=== PATIENT | male | born 1985 | race Caucasian/White ===

== ENCOUNTER → 2019-12-08 08:51 | Outpatient (BNVA) | payer MEDICARE, MEDICAID, SELFPAY | PROVIDERS: Visit Provider Specialist | DX: G82.20 Paraplegia, unspecified (principal); G40.109 Localization-related (focal) (partial) symptomatic epilepsy and epileptic syndromes with simple partial seizures, not intractable, without status epilepticus; N31.9 Neuromuscular dysfunction of bladder, unspecified; K59.09 Other constipation | CPT/HCPCS: 62370; 99213 ==

== ENCOUNTER → 2020-03-08 09:59 | Outpatient (BNVA) | payer MEDICARE, MEDICAID, SELFPAY | PROVIDERS: Visit Provider Specialist | DX: G82.20 Paraplegia, unspecified (principal); R29.90 Unspecified symptoms and signs involving the nervous system; K59.09 Other constipation; N31.9 Neuromuscular dysfunction of bladder, unspecified | CPT/HCPCS: 62370; 99213 ==

== ENCOUNTER 2020-03-08 11:53 | Outpatient (CLI) | payer MEDICARE, MEDICAID, SELFPAY ==
[2020-03-08 12:54] LABS: Basophils % 0.3 %; Eosinophils # 0.2 10^3/uL (0.0-0.8); Eosinophils % 2.1 %; Hematocrit 25.4 % (42.0-52.0); Lymphocytes # 1.2 10^3/uL (0.8-4.8); Lymphocytes % 11.5 %; Mean Corpuscular Hemoglobin 16.2 pg (28.0-34.0); Mean Corpuscular Volume 67.6 fL (80-94); Monocytes # 0.7 10^3/uL (0.2-0.9); Monocytes % 7.3 %; Neutrophils # 7.8 10^3/uL (1.8-7.7); Neutrophils % 78.5 %; Nucleated Red Blood Cells % 0 %; Platelet Count 508 10^3/cmm (130-400); Red Blood Count 3.76 10^6/uL (4.1-5.3); Red Cell Distribution Width 18.7 % (12.1-15.1)
[2020-03-08 13:00] LABS: Alanine Aminotransferase 11 U/L (0-41); Albumin Level 3.4 g/dL (3.5-5.2); Alkaline Phosphatase 53 IU/L (40-130); Anion Gap 16.1 (5-19); Aspartate Amino Transferase 14 U/L (0-40); Blood Urea Nitrogen 9 mg/dL (6-20); Calcium 9.1 mg/dL (8.5-10.5); Carbon Dioxide 24 mmol/L (22-29); Chloride 99 mmol/L (98-107); Ferritin 6 ng/mL (30-400); Globulin 3.6 g/dL (1.3-4.6); Glomerular Filtration Rate 190.3 mL/min (90-130); Glucose 91 mg/dL (65-115); Osmolality Calculated 276 mOsm/kg (285-295); Potassium 4.1 mmol/L (3.5-5.1); Sodium 135 mmol/L (136-145); Total Bilirubin 0.2 mg/dL (0.15-1.2)
[2020-03-08 13:49] LABS: Hemoglobin 6.1 g/dL (11.7-16.6)
[2020-03-09 08:26] LABS: Testosterone Total 493.3 ng/dL (249-836)
== END 2020-03-08 11:54 | disposition home or self-care (01) ==
LOC: LAB 12:01
PROVIDERS: Visit Provider Specialist
DX: G82.20 Paraplegia, unspecified (principal)
CPT/HCPCS: 80053; 82728; 84403; 85025

== ENCOUNTER 2020-03-08 15:18 | Observation (INO) | payer MEDICARE, MEDICAID, SELFPAY ==
[2020-03-08] VITALS (12 sets, daily range): BP systolic 85–148; BP diastolic 47–77; PULSE 53–89; RESP 16–18; TEMP 36.5–37.2; O2SAT 95–100; BMI 25.1
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
--- NOTE | 2020-03-08 17:34 | CTR_ITS ---
PROCEDURE INFORMATION: Exam: CT Abdomen And Pelvis With Contrast Exam date and time: 03/08/2020 5:45 PM Age: 34 years old Clinical indication: Abdominal pain; Localized; Lower; Prior surgery; Surgery type: Pain pump; Additional info: Abd pain TECHNIQUE: Imaging protocol: Computed tomography of the abdomen and pelvis with intravenous contrast. Radiation optimization: All CT scans at this facility use at least one of these dose optimization techniques: automated exposure control; mA and/or kV adjustment per patient size (includes targeted exams where dose is matched to clinical indication); or iterative reconstruction. Contrast material: OMNI 300; Contrast volume: 95 ml; Contrast route: IV; COMPARISON: CT pelvis w con* [id number] 10/04/2018 12:58 PM RADIATION DOSE METRICS: Total DLP: 695.35 mGy-cm FINDINGS: Tubes, catheters and devices: Stable right-sided pain management/neurostimulator device in place. Liver: Low density focal fatty infiltration within the liver, anterior to the falciform ligament. This is a common finding. Gallbladder and bile ducts: Solitary 1.9 cm gallstone within the gallbladder. Contracted gallbladder. Pancreas: Normal. No ductal dilation. Spleen: Normal. No splenomegaly. Adrenals: Normal. No mass. Kidneys and ureters: Normal. No hydronephrosis. Stomach and bowel: Unremarkable. No obstruction. No mucosal thickening. Appendix: No evidence of appendicitis. Intraperitoneal space: Increased size of 10.1 x 10.0 x 5.8 cm low-density fluid collection in the space between the right acetabulum and proximal right femur consistent with increased infected versus noninfected fluid within the pseudoarthrosis. Vasculature: Stable IVC filter. Lymph nodes: Unremarkable. No enlarged lymph nodes. Bladder: Matthews balloon catheter in the urinary bladder. Reproductive: Unremarkable as visualized. Bones/joints: Previous removal of the femoral head and neck bilaterally with free-floating proximal femurs overriding the acetabular areas laterally. Partial sacralization of the right portion of L5 with unilateral right-sided articulation which can be a source of chronic low back pain. Stable sclerotic deformity of the left ischial tuberosity with interval appearance of soft tissue track suggesting possible phlegmon with or without osteomyelitis. Soft tissues: Increased soft tissue thickening along the inferior portion of the gluteal crease bilaterally extending to the perianal area most consistent with phlegmon/decubitus ulcer. CT/CT abdomen pelvis w con* [id number] IMPRESSION: 1. Stable right-sided pain management/neurostimulator device in place. 2. Solitary 1.9 cm gallstone within the gallbladder. 3. Matthews balloon catheter in the urinary bladder. 4. Previous removal of the femoral head and neck bilaterally with free-floating proximal femurs overriding the acetabular areas laterally. 5. Increased soft tissue thickening along the inferior portion of the gluteal crease bilaterally extending to the perianal area most consistent with phlegmon/decubitus ulcer. 6. Stable sclerotic deformity of the left ischial tuberosity with interval appearance of soft tissue track suggesting possible phlegmon with or without osteomyelitis. 7. Increased size of 10.1 x 10.0 x 5.8 cm low-density fluid collection in the space between the right acetabulum and proximal right femur consistent with increased infected versus noninfected fluid within the pseudoarthrosis. Radiation Dose CTDIVOL = (mGy): DLP = 695.35 (mGy-cm)
[2020-03-08 17:40] LABS: Basophils % 0.3 %; Eosinophils # 0.3 10^3/uL (0.0-0.8); Eosinophils % 3.2 %; Hematocrit 24.6 % (42.0-52.0); Lymphocytes # 1.2 10^3/uL (0.8-4.8); Lymphocytes % 13.8 %; Mean Corpuscular HGB Conc 24.8 g/dL (30.0-36.0); Mean Corpuscular Hemoglobin 15.9 pg (28.0-34.0); Mean Corpuscular Volume 64.2 fL (80-94); Mean Platelet Volume 10.4 fL (7.4-10.4); Monocytes # 0.8 10^3/uL (0.2-0.9); Monocytes % 8.5 %; Neutrophils # 6.5 10^3/uL (1.8-7.7); Neutrophils % 73.9 %; Nucleated Red Blood Cells % 0 %; Platelet Count 524 10^3/cmm (130-400); Red Blood Count 3.83 10^6/uL (4.1-5.3); Red Cell Distribution Width 18.9 % (12.1-15.1); White Blood Count 8.8 10^3/uL (4.0-10.0)
[2020-03-08 17:49] LABS: Partial Thromboplastin Time 33.4 SECONDS (23.9-36.7)
[2020-03-08 17:52] LABS: Hemoglobin 6.1 g/dL (11.7-16.6)
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
[2020-03-08] MEDS: iohexol 300 mg/mL 100 mL Btl IV (17:58)
[2020-03-08 17:59] LABS: Alanine Aminotransferase 12 U/L (0-41); Albumin Level 3.5 g/dL (3.5-5.2); Alkaline Phosphatase 62 IU/L (40-130); Anion Gap 15.8 (5-19); Aspartate Amino Transferase 15 U/L (0-40); Blood Urea Nitrogen 14 mg/dL (6-20); Calcium 9.2 mg/dL (8.5-10.5); Carbon Dioxide 26 mmol/L (22-29); Chloride 99 mmol/L (98-107); Globulin 3.6 g/dL (1.3-4.6); Glomerular Filtration Rate 110.7 mL/min (90-130); Glucose 106 mg/dL (65-115); Osmolality Calculated 281 mOsm/kg (285-295); Potassium 3.8 mmol/L (3.5-5.1); Sodium 137 mmol/L (136-145); Total Bilirubin 0.2 mg/dL (0.15-1.2); Total Protein 7.1 g/dL (6.6-8.7)
--- NOTE | 2020-03-08 18:58 | PC.NURSE ---
Patients initial temperature before giving blood was 98.6.
[2020-03-08 19:09] LABS: Bilirubin Urine Neg (NEGATIVE); Blood Urine 3+ (Negative); Glucose Urine UA Norm (Normal); Ketones Urine Negative (Negative); Nitrate Urine Negative (Negative); Protein Urine 1+ (Negative); Sulfosalicylic Acid Urine Negative (Negative); Urine Appearance Clear (CLEAR); Urine Color Yellow (Yellow); pH Urine 8 (5-7)
[2020-03-08 19:10] LABS: Add Urine Culture? No; Add Urine Microscopic? YES; Bacteria Urine TRACE; Leukocyte Esterase Urine Negative (Negative); Squamous Epithelial Cell Urine 0-4 (0-5); Urobilinogen Urine Norm (Negative); WBC Urine 0-4 /hpf (0-5)
[2020-03-08] MEDS: sennosides-docusate Tablet 3 TAB PO (20:58)
[2020-03-08] MEDS: levETIRAcetam 500 mg Tablet 1500 MG PO (20:59)
[2020-03-08] MEDS: oxybutynin 5 mg Tablet PO (20:59)
[2020-03-09] VITALS (8 sets, daily range): BP systolic 91–119; BP diastolic 53–69; PULSE 62–78; RESP 15–18; TEMP 36.7–36.9; O2SAT 97–99
[2020-03-09 05:16] LABS: Ferritin 6 ng/mL (30-400); Folate Level 9.1 ng/mL (4.5-32.2); Iron 9 ug/dL (59-158); Percent Saturation 3.4 % (20-50); Thyroid Stimulating Hormone 1.48 uIU/mL (0.27-4.20); Total Iron Binding Capacity 260 mcg/dl; Unsaturated Iron Binding 251 ug/dL (112-347); Vitamin B12 410 pg/mL (232-1245)
[2020-03-09 05:40] LABS: Basophils % 0.3 %; Eosinophils # 0.4 10^3/uL (0.0-0.8); Eosinophils % 5.7 %; Hematocrit 30.5 % (42.0-52.0); Hemoglobin 8.3 g/dL (11.7-16.6); Lymphocytes % 14.9 %; Mean Corpuscular HGB Conc 27.2 g/dL (30.0-36.0); Mean Corpuscular Hemoglobin 18.4 pg (28.0-34.0); Mean Corpuscular Volume 67.6 fL (80-94); Mean Platelet Volume 10.9 fL (7.4-10.4); Monocytes # 0.7 10^3/uL (0.2-0.9); Monocytes % 11.5 %; Neutrophils # 4.3 10^3/uL (1.8-7.7); Neutrophils % 67.3 %; Nucleated Red Blood Cells % 0 %; Platelet Count 327 10^3/cmm (130-400); Positive M 1; Red Blood Count 4.51 10^6/uL (4.1-5.3); Red Cell Distribution Width 23.3 % (12.1-15.1); White Blood Count 6.4 10^3/uL (4.0-10.0)
[2020-03-09 06:00] LABS: Anion Gap 16.4 (5-19); Blood Urea Nitrogen 13 mg/dL (6-20); Carbon Dioxide 24 mmol/L (22-29); Chloride 105 mmol/L (98-107); Glomerular Filtration Rate 246.2 mL/min (90-130); Glucose 87 mg/dL (65-115); Osmolality Calculated 288 mOsm/kg (285-295); Potassium 4.4 mmol/L (3.5-5.1); Sodium 141 mmol/L (136-145)
[2020-03-09] MEDS: levETIRAcetam 500 mg Tablet 1500 MG PO (09:30)
[2020-03-09] MEDS: oxybutynin 5 mg Tablet PO ×2 (09:31→13:35)
[2020-03-09] MEDS: pantoprazole DR 40 mg Tablet PO (09:31)
[2020-03-09] MEDS: polyethylene glycol 3350 Pkt 17 gm PO (10:28)
--- NOTE | 2020-03-09 10:54 | PC.CHAP ---
Pastoral Care Encounter/Spiritual Assessment Type of Contact [] Declined hogshead hooper visit [] Patient/Family/Request visit [] Outpatient visit [] Follow-up visit [] Physician referral [] Code/Alert [x] Routine visit [] Staff referral [] Actively dying [] Patient sleeping [] Family support [] [] Out of room [] Palliative care [] [] Receiving care in room [] Pre-surgical visit [] Trauma [] Long length of stay [] ICU visit [] Other: Relational/Emotional Strength [] Patient feels connected with others/family/visitors/staff [] Distress [] Loneliness/isolation [] Abandonment Spirituality of Patient [x] Person of Татьяна [] Attends Mandaeism of their Татьяна [x] Believes in Prayer [x] Reads Bible or Nondenominational materials [] There are Spiritual issues to be addressed Implementation Technician Interventions [x] Prayer [] Active listening [] Non-anxious presence [] Spiritual/emotional support [] Crisis/trauma care [] Spiritual counseling [] Bereavement support [] Provided bereavement packet [] Provided Bible/devotional materials [] Provided toy/stuffed animal, coloring book to patient or family member [] Provided Communion [] Anointing/[place] [] Salvation [x] Completed spiritual assessment [] Other: Impact on Illness or Injury [] Angry [] Fearful [] Anxious [] Often cries [] Exhaustion [] Unable to work [] Unable to attend jain [] Unable to walk/stand [] Unable to read [] Unable to drive [] Unable to eat/drink [] Unable to sleep [] Unable to be with family [] Patient intubated [] Other: Summary Patient received blood, feeling stronger Time spent with patient 20 min
--- NOTE | 2020-03-09 12:15 | PM.DCS ---
Discharge Providers Date of Admission: 03/08/20 17:55 Date of Discharge: March 09, 2020 Attending Provider at Admission: Ludin Mckoy MD Attending Provider at Discharge: Ludin Mckoy MD Diagnoses at Discharge Discharge Diagnosis (1) Anemia: Status: Acute Problem details: Improved following transfusion. Hemoglobin now 8.3. No bowel movements in house to suggest any brisk bleeding. Studies indicate iron deficiency anemia (2) Abdominal pain: Status: Acute Problem details: Improved. No etiology found for this on CT. May be secondary to constipation. 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 He was found to have a hemoglobin of 6.1. He reported bright red blood with rectal manipulation that he uses twice daily for bowel movements. Previous EGD and colonoscopy 1 year ago were negative. Studies indicated iron deficiency anemia. B12 and folate levels were normal. He was transfused 2 units and hemoglobin increased to 8.3. He had no evidence of active bleeding so he was discharged home with follow-up with surgery who performed his previous endoscopy. He will be placed on iron. Bowel regimen was changed. It was also suggested he reduce manipulation and try suppository 1-2 times daily which he has at home. Secondary to some abdominal pain a CT abdomen and pelvis was also performed and this demonstrated no obvious reason for abdominal discomfort. Significant stool was noted when I evaluated the CAT scan myself. Of note, he does have some scarring and distortion of his rectum but no evidence of infection on external rectal exam done by me. Some fissuring is also noted. Physical Exam Narrative: EXAM NARRATIVE: General exam is no apparent distress Cardiovascular regular rate and rhythm without murmur Lungs clear Abdomen is soft, positive bowel sounds Extremities no cyanosis clubbing. Edema unchanged from admission. Urinary Catheter Management^: Matthews: Cath Placed During This Visit: yes Reason for Continuing Indwelling Catheter: Chronic Indwelling Urinary Catheter on Admission Urinary Catheter Date of Insertion: 03/08/20 Urinary Catheter Time of Insertion: 20:00 Discharge Data Data Completed and Pending: Completed Studies During Hospitalization Category Date Time Status CT abdomen pelvis w con* [id number] Stat Cat Scan 03/08/20 17:34 Completed Pending at discharge Category Date Time Status Immunochemical Fe lori OCB Stat Lab 03/08/20 15:48 Uncollected Labs from last 24 hours 03/09/20 03/09/20 03/08/20 05:10 05:10 18:20 WBC 6.4 RBC 4.51 Hgb 8.3 L D Hct 30.5 L MCV 67.6 L D MCH 18.4 L D MCHC 27.2 L D RDW 23.3 H Plt Count 327 MPV 10.9 H Neut % (Auto) 67.3 Lymph % (Auto) 14.9 [place] % (Auto) 11.5 Eos % (Auto) 5.7 Baso % (Auto) 0.3 Neut # (Auto) 4.3 Lymph # (Auto) 1.0 [place] # (Auto) 0.7 Eos # (Auto) 0.4 Baso # (Auto) 0.0 Nucleated RBC % (a uto) 0 Nucleated RBCs # 0.0 PT INR APTT Sodium 141 Potassium 4.4 Chloride 105 Carbon Dioxide 24 Anion Gap 16.4 BUN 13 Creatinine 0.4 L GFR Calculation 246.2 H Glucose 87 Calculated Osmolal ity 288 Calcium 9.0 Iron TIBC % Saturation Unsat Iron Binding Ferritin Total Bilirubin AST ALT Alkaline Phosphata se Total Protein Albumin Globulin Vitamin B12 Folate TSH Urine Color Yellow Urine Appearance Clear Urine pH 8 H Ur Specific Gravit y 1.010 Urine Protein 1+ H Urine Glucose (UA) Norm Urine Ketones Negative Urine Blood 3+ H Urine Nitrate Negative Urine Bilirubin Neg Prot Sulfosalicyli c Acd Negative Urine Urobilinogen Norm Ur Leukocyte Claudine ase Negative Urine RBC 10-15 H Urine WBC 0-4 H Ur Squamous Epith Cells 0-4 H Urine Bacteria Trace Blood Type Rho(D) Type Antibody Screen Crossmatch 03/08/20 03/08/20 03/08/20 17:17 17:17 17:17 WBC RBC Hgb Hct MCV MCH MCHC RDW Plt Count MPV Neut % (Auto) Lymph % (Auto) [place] % (Auto) Eos % (Auto) Baso % (Auto) Neut # (Auto) Lymph # (Auto) [place] # (Auto) Eos # (Auto) Baso # (Auto) Nucleated RBC % (a uto) Nucleated RBCs # PT INR APTT Sodium Potassium Chloride Carbon Dioxide Anion Gap BUN Creatinine GFR Calculation Glucose Calculated Osmolal ity Calcium Iron 9 L TIBC 260 % Saturation 3.4 L Unsat Iron Binding 251 Ferritin 6 L Total Bilirubin AST ALT Alkaline Phosphata se Total Protein Albumin Globulin Vitamin B12 410 Folate 9.1 TSH 1.48 Urine Color Urine Appearance Urine pH Ur Specific Gravit y Urine Protein Urine Glucose (UA) Urine Ketones Urine Blood Urine Nitrate Urine Bilirubin Prot Sulfosalicyli c Acd Urine Urobilinogen Ur Leukocyte Claudine ase Urine RBC Urine WBC Ur Squamous Epith Cells Urine Bacteria Blood Type AB Positive Rho(D) Type Positive Antibody Screen Negative Crossmatch See Detail 03/08/20 03/08/20 03/08/20 17:17 17:17 17:17 WBC 8.8 RBC 3.83 L Hgb 6.1 L* Hct 24.6 L MCV 64.2 L D MCH 15.9 L MCHC 24.8 L RDW 18.9 H Plt Count 524 H MPV 10.4 Neut % (Auto) 73.9 Lymph % (Auto) 13.8 [place] % (Auto) 8.5 Eos % (Auto) 3.2 Baso % (Auto) 0.3 Neut # (Auto) 6.5 Lymph # (Auto) 1.2 [place] # (Auto) 0.8 Eos # (Auto) 0.3 Baso # (Auto) 0.0 Nucleated RBC % (a uto) 0 Nucleated RBCs # 0.0 PT 14.50 H INR 1.10 APTT 33.4 Sodium 137 Potassium 3.8 Chloride 99 Carbon Dioxide 26 Anion Gap 15.8 BUN 14 Creatinine 0.8 GFR Calculation 110.7 Glucose 106 Calculated Osmolal ity 281 L Calcium 9.2 Iron TIBC % Saturation Unsat Iron Binding Ferritin Total Bilirubin 0.2 AST 15 ALT 12 Alkaline Phosphata se 62 Total Protein 7.1 Albumin 3.5 Globulin 3.6 Vitamin B12 Folate TSH Urine Color Urine Appearance Urine pH Ur Specific Gravit y Urine Protein Urine Glucose (UA) Urine Ketones Urine Blood Urine Nitrate Urine Bilirubin Prot Sulfosalicyli c Acd Urine Urobilinogen Ur Leukocyte Claudine ase Urine RBC Urine WBC Ur Squamous Epith Cells Urine Bacteria Blood Type Rho(D) Type Antibody Screen Crossmatch Vitals: Last Vital Signs Temp 98.4 F 03/09/20 11:53 Pulse 78 03/09/20 11:53 Resp 18 03/09/20 11:53 BP 91/53 03/09/20 11:53 Pulse Ox 98 03/09/20 11:53 Discharge Plan Discharge Patient Disposition: Home, Self-Care Condition: Stable Prescriptions: New sennosides-docusate sodium 8.6-50 mg Tablet 3 tab PO BEDTIME Qty: 90 RF: 0 ferrous sulfate 325 mg (65 mg iron) tablet,delayed release (DR/EC) 325 mg PO BID Qty: 60 RF: 0 pantoprazole [Protonix] 40 mg tablet,delayed release (DR/EC) 40 mg PO DAILY Qty: 30 RF: 0 Continued baclofen 2,000 mcg/mL solution 699.4 mcg INTRATHECA QDAY RF: 0 Fiber Select Gummies 2-100 gram-mcg tablet,chewable 1 tab PO DAILY RF: 0 levetiracetam [Keppra] 750 mg tablet 1,500 mg PO BID RF: 0 oxybutynin chloride 5 mg tablet 5 mg PO QID RF: 0 (DME) urinary bag Kit See Rx Instructions .ROUTE .MEDSUPPLY Qty: 1 RF: 0 Changed ClearLax 17 gram Powder In Packet 17 g PO BIDPC Qty: 0 RF: 0 Discontinued senna 8.6 mg capsule 17.2 mg PO BID PRN (Reason: constipation) Qty: 120 RF: 11 Colace 100 mg capsule 300 mg PO DAILY RF: 0 Referrals: Zander Yang MD [Physician] - 7-10 days (Follow-up anemia, history of rectal bleeding with manipulation) Discharge Diet: Regular Discharge Activity: Increase activity as tolerated Activity Restrictions/Additional Instructions: Arrange follow-up with a primary care provider on Thursday or Thursday with a CBC Discharge Attestations Time Spent in Discharge Care*: greater than 30 min Quality Metrics Clinical Quality Measures During this hospital stay, did patient experience: None Coding Level of Care Code Acute 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
== END 2020-03-09 13:00 | disposition home or self-care (01) ==
LOC: ER 15:48 → MEDSURG 18:36
PROVIDERS: Admitting Provider Internal Medicine; Emergency Provider Family Medicine; Visit Provider Internal Medicine
DX: D64.9 Anemia, unspecified (principal); R10.9 Unspecified abdominal pain; G82.20 Paraplegia, unspecified; K59.09 Other constipation; R29.90 Unspecified symptoms and signs involving the nervous system; N31.9 Neuromuscular dysfunction of bladder, unspecified
CPT/HCPCS: 12345; 36415; 36430; 51702; 62370; 74177; 80048; 80053; 81001; 82607; 82728; 82746; 83540; 83550; 84403; 84443; 85025; 85610; 85730; 86850; 86900; 86920; 99213; 99282; 99283; G0378; P9016; Q9967

== ENCOUNTER → 2020-03-13 15:19 | Outpatient (BNVA) | payer MEDICARE, MEDICAID, SELFPAY | PROVIDERS: Visit Provider Nurse Practitioner Family | DX: D64.9 Anemia, unspecified (principal); D50.9 Iron deficiency anemia, unspecified; K59.09 Other constipation | CPT/HCPCS: 85025 ==

== ENCOUNTER 2020-03-26 14:15 | Inpatient (IN) | payer MEDICARE, MEDICAID, SELFPAY ==
[2020-03-26 14:36] VITALS: BP 102/42; PULSE 86; RESP 18; TEMP 37.2; O2SAT 97; BMI 23.7
--- NOTE | 2020-03-26 15:39 | CTR_ITS ---
PROCEDURE INFORMATION: Exam: CT Abdomen And Pelvis With Contrast Exam date and time: 03/26/2020 4:00 PM Age: 34 years old Clinical indication: Abdominal pain; Prior surgery; Additional info: Fever, sacral decub with tunneling TECHNIQUE: Imaging protocol: Computed tomography of the abdomen and pelvis with intravenous contrast. Radiation optimization: All CT scans at this facility use at least one of these dose optimization techniques: automated exposure control; mA and/or kV adjustment per patient size (includes targeted exams where dose is matched to clinical indication); or iterative reconstruction. Contrast material: OMNI 300; Contrast volume: 95 ml; Contrast route: IV; COMPARISON: CT abdomen pelvis w con* [id number] 03/08/2020 5:56 PM RADIATION DOSE METRICS: Total DLP: 824.38 mGy-cm FINDINGS: Tubes, catheters and devices: Neurostimulator device is present. Heart: Unchanged trace pericardial fluid. Lungs: There is mild basilar ground-glass opacity compatible with mild dependent atelectasis or pneumonitis. Pleural space: No pleural effusion. Liver: Unremarkable.No mass. Gallbladder and bile ducts: There is cholelithiasis. No evidence of cholecystitis. There is no common bile duct dilation. Pancreas: Normal. No ductal dilation. Spleen: The spleen is normal. Adrenals: Normal. No mass. Kidneys and ureters: There is no evidence of hydronephrosis. Stomach and bowel: There is no evidence of intestinal perforation or obstruction. No bowel thickening or inflammatory changes. The phlegmon posterior to the distal sacrum and coccyx is dissecting inferiorly ending just posterior to the anus. On sagittal images, there may be a tiny fissure that also extends to the skin surface 10 cm distal to the collection overlying the distal sacrum and coccyx best seen on series 601, image 44. There are also a few punctate air bubbles and tiny fluid collections compatible with infection measuring up to 5 mm in size image 87. The small collections in air bubbles are located approximately 3 cm posterior to the anus. No drainable fluid collection or perirectal abscess. Appendix: A normal appendix is identified. Intraperitoneal space: No free fluid in the abdomen or pelvis. Vasculature: An inferior vena cava filter lies in appropriate position. Lymph nodes: Multiple subcentimeter and prominent retroperitoneal lymph nodes are unchanged. There is 1 lymph node in the left periaortic space that measures 1 point 5 cm in short axis image 34 unchanged since the prior exam. Bilateral inguinal adenopathy is unchanged. Bladder: There is nonspecific bladder wall thickening. This may be related to incomplete distention. Unchanged bladder wall thickening. Previous catheter has been removed. Reproductive: Unremarkable as visualized. Bones/joints: Chronic dislocation of the left hip is noted. Unchanged soft tissue thickening with a small amount of fluid in the left hip joint. Large multiloculated fluid collection right hip joint and adjacent to the dislocated proximal right femur is noted and unchanged in size and configuration. There is no gas within the fluid collection but the wall appears thick. The femur within the fluid is abnormal concerning for chronic osteomyelitis. This thick-walled fluid collection is concerning for infected hip joint/smoldering infection with underlying chronic dislocation. There is a right-sided transitional lumbosacral junction. There are moderate degenerative changes in the spine. Old bone graft donor site in the left ilium is noted. There are moderate degenerative changes in the sacroiliac joints. Old fracture or postoperative changes in the left iliac wing are noted. Chronic debris in the left hip joint and deformity of the left acetabulum with chronic dislocation is unchanged. Unchanged deformity of the left ischium. Unchanged ankylosis of the pubic symphysis. Unchanged moderate degenerative changes right acetabulum. 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 There is a tract in the proximal right femur compatible probable old intramedullary lexi has been removed but the proximal aspect of this tract is abnormal with a moth eaten appearance of the bone including sclerosis of the proximal 11 cm of the right femur is concerning for chronic osteomyelitis. Note is made that the fluid collection is surrounding this portion of the femur which would be concerning for infected fluid. Soft tissues: There is a decubitus ulcer in the midline overlying the distal sacrum/coccyx. There is abundant soft tissue thickening and induration of the fat dorsal to the distal sacrum and coccyx compatible with cellulitis/phlegmon. There is gas in the soft tissues within a fissure that extends immediately contiguous with the dorsal cortex of the sacrum best seen on image 66 through 70. No fluid collection within the soft tissues in the midline dorsal to the sacrum or coccyx. Note is made that the phlegmon continues inferiorly and in the posterior to the anus. There is probable scarring of the subcutaneous fat posterior to the left hip where there is some retraction of the skin surface unchanged since the prior exam. Stable postoperative clips in the left groin. There is some gas within the skin fold of the left groin unchanged in appearance. Other findings: Unchanged induration of the presacral fat. CT/CT abdomen pelvis w con* [id number] IMPRESSION: 1. Decubitus ulcer containing gas and probable phlegmon posterior to the distal sacrum and coccyx is new compared to the prior exam. The phlegmon is dissecting inferiorly towards the perineum just posterior to the anus. There are a few punctate fluid collections or microabscesses posterior to the distal anus. The phlegmon posterior to the anus is unchanged in size. The phlegmon appears to have dissected superiorly behind the sacrum/coccyx. No drainable fluid collection/ abscess. No bony destruction or osteomyelitis. 2. 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 There is a thick walled fluid collection surrounding the abnormal femur and dislocated hip joint that is unchanged in size but concerning for low-grade infection with abscess/infected joint fluid. This is unchanged in size compared to the prior exam. 3. Cholelithiasis without cholecystitis. Radiation Dose CTDIVOL = (mGy): DLP = 824.38 (mGy-cm)
[2020-03-26 16:05] LABS: Basophils % 0.2 %; Eosinophils # 0.1 10^3/uL (0.0-0.8); Eosinophils % 0.9 %; Hematocrit 30.6 % (42.0-52.0); Hemoglobin 8.4 g/dL (11.7-16.6); Lymphocytes # 0.5 10^3/uL (0.8-4.8); Lymphocytes % 5.4 %; Mean Corpuscular HGB Conc 27.5 g/dL (30.0-36.0); Mean Corpuscular Volume 72.7 fL (80-94); Mean Platelet Volume 9.6 fL (7.4-10.4); Monocytes # 0.7 10^3/uL (0.2-0.9); Monocytes % 7.2 %; Nucleated Red Blood Cells % 0 %; Platelet Count 459 10^3/cmm (130-400); Red Blood Count 4.21 10^6/uL (4.1-5.3); Red Cell Distribution Width 26.5 % (12.1-15.1); White Blood Count 9.3 10^3/uL (4.0-10.0)
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
[2020-03-26 16:17] LABS: Lactate (Lactic Acid level) 0.8 mmol/L (0.5-2.2)
[2020-03-26 16:18] LABS: Alanine Aminotransferase 14 U/L (0-41); Albumin Level 3.2 g/dL (3.5-5.2); Alkaline Phosphatase 52 IU/L (40-130); Anion Gap 14.6 (5-19); Aspartate Amino Transferase 15 U/L (0-40); Blood Urea Nitrogen 9 mg/dL (6-20); Calcium 8.4 mg/dL (8.5-10.5); Carbon Dioxide 26 mmol/L (22-29); Chloride 100 mmol/L (98-107); Globulin 3.3 g/dL (1.3-4.6); Glomerular Filtration Rate 190.3 mL/min (90-130); Glucose 97 mg/dL (65-115); Osmolality Calculated 280 mOsm/kg (285-295); Potassium 3.6 mmol/L (3.5-5.1); Sodium 137 mmol/L (136-145); Total Bilirubin 0.3 mg/dL (0.15-1.2); Total Protein 6.5 g/dL (6.6-8.7)
[2020-03-26 16:39] LABS: Erythrocyte Sedimentation Rate 62 mm/hr (0-10)
[2020-03-26] MEDS: iohexol 300 mg/mL 100 mL Btl IV (16:57)
[2020-03-26] MEDS: ketorolac 30 mg/mL INJ 15 MG IVP (17:38)
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
[2020-03-26] MEDS: vancomycin 1,000 MG in sodium chloride 0.9% 250 ML 250 MG IV (18:29)
[2020-03-26 18:39] LABS: Add Urine Microscopic? NO
[2020-03-26 18:40] LABS: Bilirubin Urine Neg (NEGATIVE); Blood Urine Neg (Negative); Glucose Urine UA Norm (Normal); Ketones Urine Negative (Negative); Leukocyte Esterase Urine Negative (Negative); Nitrate Urine Negative (Negative); Protein Urine Neg (Negative); Urine Appearance Clear (CLEAR); Urine Color Straw (Yellow); Urobilinogen Urine Norm (Negative); pH Urine 6.5 (5-7)
[2020-03-26 18:50] LABS: Amphetamines Screen Urine Negative (Negative); Barbiturates Screen Urine Negative (Negative); Benzodiazepines Screen Urine Negative (Negative); Cocaine Screen Urine Negative (Negative); Opiate Screen Urine Negative (Negative); PCP Screen Urine Negative (Negative); THC Screen Urine Negative (Negative)
[2020-03-26 19:04] VITALS: BP 104/40; PULSE 79; RESP 18; O2SAT 98
[2020-03-26 19:12] LABS: Lactic Sepsis W/Reflex 0.7 mmol/L (0.5-2.2)
[2020-03-26 20:00] VITALS: BP 75/42; PULSE 81; RESP 18; TEMP 36.6; O2SAT 99
[2020-03-26 21:27] VITALS: PULSE 80; RESP 18; O2SAT 97
[2020-03-26 21:32] LABS: Iron 13 ug/dL (59-158); Percent Saturation 6.7 % (20-50); Procalcitonin 0.22 ng/mL (0-0.5); Thyroid Stimulating Hormone 1.63 uIU/mL (0.27-4.20); Total Iron Binding Capacity 194 mcg/dl; Unsaturated Iron Binding 181 ug/dL (112-347)
[2020-03-26] MEDS: ferrous sulfate EC 325 mg Tablet PO (22:18)
[2020-03-26] MEDS: sennosides-docusate Tablet 3 TAB PO (22:19)
[2020-03-26] MEDS: sodium chloride 0.9% 1,000 ML 75 ML IV (22:20)
[2020-03-26] MEDS: sodium chloride 0.9% 1,000 ML 999 ML IV (22:22)
[2020-03-26 22:23] VITALS: BP 90/40
[2020-03-26 23:30] VITALS: RESP 18; O2SAT 98
[2020-03-26] MEDS: oxyCODONE-APAP 5-325 mg Tablet 1 TAB PO (23:30)
[2020-03-27] VITALS (27 sets, daily range): BP systolic 89–132; BP diastolic 36–76; PULSE 45–79; RESP 10–20; TEMP 36.3–37.1; O2SAT 92–100
[2020-03-27 03:17] LABS: Basophils % 0.3 %; Eosinophils # 0.2 10^3/uL (0.0-0.8); Eosinophils % 3.5 %; Hematocrit 26.4 % (42.0-52.0); Hemoglobin 7.1 g/dL (11.7-16.6); Lymphocytes # 0.9 10^3/uL (0.8-4.8); Lymphocytes % 13.4 %; Mean Corpuscular HGB Conc 26.9 g/dL (30.0-36.0); Mean Corpuscular Hemoglobin 19.6 pg (28.0-34.0); Mean Corpuscular Volume 72.9 fL (80-94); Mean Platelet Volume 10.3 fL (7.4-10.4); Monocytes # 0.7 10^3/uL (0.2-0.9); Monocytes % 9.9 %; Neutrophils # 4.9 10^3/uL (1.8-7.7); Neutrophils % 72.8 %; Nucleated Red Blood Cells % 0 %; Platelet Count 430 10^3/cmm (130-400); Red Blood Count 3.62 10^6/uL (4.1-5.3); Red Cell Distribution Width 26.5 % (12.1-15.1); White Blood Count 6.8 10^3/uL (4.0-10.0)
[2020-03-27 03:31] LABS: Alanine Aminotransferase 13 U/L (0-41); Albumin Level 2.6 g/dL (3.5-5.2); Alkaline Phosphatase 49 IU/L (40-130); Anion Gap 13.3 (5-19); Aspartate Amino Transferase 13 U/L (0-40); Blood Urea Nitrogen 10 mg/dL (6-20); Calcium 8.4 mg/dL (8.5-10.5); Carbon Dioxide 24 mmol/L (22-29); Chloride 105 mmol/L (98-107); Globulin 3.1 g/dL (1.3-4.6); Glomerular Filtration Rate 190.3 mL/min (90-130); Glucose 128 mg/dL (65-115); Magnesium 1.9 mg/dL (1.7-2.3); Osmolality Calculated 286 mOsm/kg (285-295); Phosphorus 3.8 mg/dL (2.5-4.5); Potassium 3.3 mmol/L (3.5-5.1); Sodium 139 mmol/L (136-145); Total Bilirubin 0.2 mg/dL (0.15-1.2); Total Protein 5.7 g/dL (6.6-8.7)
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
[2020-03-27] MEDS: midazolam 1 mg/mL INJ 2 mL 2 MG IVP (10:07)
[2020-03-27] MEDS: sodium chloride 0.9% 1,000 ML 30 ML IV (10:07)
[2020-03-27] MEDS: vancomycin 1,000 MG in sodium chloride 0.9% 250 ML 250 MG IV ×2 (10:16→15:02)
[2020-03-27 11:31] LABS: Vancomycin Trough 21.1 ug/mL (10-15)
--- NOTE | 2020-03-27 11:47 | PC.CHAP ---
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 [] Patient/Family/Request visit [] Outpatient visit [] Follow-up visit [] Physician referral [] Code/Alert [] Routine visit [] Staff referral [] Actively dying [] Patient sleeping [] Family support [] [] Out of room [] Palliative care [] [] Receiving care in room [] Pre-surgical visit [] Trauma [] Long length of stay [] ICU visit [X] Other: Tests fellow up Relational/Emotional Strength [] Patient feels connected with others/family/visitors/staff [] Distress [] Loneliness/isolation [] Abandonment Spirituality of Patient [] Person of Татьяна [] Attends Restoration of their Татьяна [] Believes in Prayer [] Reads Bible or Hinduism materials [] There are Spiritual issues to be addressed Test Manager Interventions [] Prayer [] Active listening [] Non-anxious presence [] Spiritual/emotional support [] Crisis/trauma care [] Spiritual counseling [] Bereavement support [] Provided bereavement packet [] Provided Bible/devotional materials [] Provided toy/stuffed animal, coloring book to patient or family member [] Provided Communion [] Anointing/[place] [] Salvation [] Completed spiritual assessment [] Other: Impact on Illness or Injury [] Angry [] Fearful [] Anxious [] Often cries [] Exhaustion [] Unable to work [] Unable to attend gnosticism [] Unable to walk/stand [] Unable to read [] Unable to drive [] Unable to eat/drink [] Unable to sleep [] Unable to be with family [] Patient intubated [] Other: Summary Tests fellow up Time spent with patient 5 mins
[2020-03-27] MEDS: lidocaine 2% INJ 20 mL INJECTION (11:48)
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
[2020-03-27] MEDS: oxybutynin 5 mg Tablet PO ×3 (13:35→21:00)
[2020-03-27] MEDS: levETIRAcetam 500 mg Tablet 1500 MG PO ×2 (13:35→19:06)
[2020-03-27] MEDS: ferrous sulfate EC 325 mg Tablet PO ×2 (13:35→19:06)
[2020-03-27] MEDS: pantoprazole DR 40 mg Tablet PO (13:35)
--- NOTE | 2020-03-27 15:47 | P.PN_ITS ---
Subjective Subjective: Interval history: Overnight patient had mild hypotension for which he required a bolus of IV fluid and after that blood pressures well maintained. Patient remained asymptomatic during the whole event. Today morning seen after over debridement. Patient is little drowsy postprocedure. As per the nurse he has not had any nausea, vomiting, diarrhea. Labs and vitals noted. Vitals/I&O/Wt Last Vital Signs Temp 97.5 F L 03/27/20 15:00 Pulse 74 03/27/20 15:00 Resp 18 03/27/20 15:00 BP 108/61 03/27/20 15:00 Pulse Ox 99 03/27/20 15:00 03/27/20 03/27/20 03/27/20 06:59 14:59 22:59 Intake Total 500 / 750 250 / 250 Output Total 200 / 200 Balance 300 / 550 235 / 235 Weight last 48 hrs Weight 69.581 kg Weight 77.111 kg Physical Exam Narrative: EXAM NARRATIVE: General: No acute distress, AO x3 HEENT: PERRLA, pupils bilaterally equal and reactive Chest: Normal vesicular breath sounds, no added sounds, equal good air entry bilaterally CVS: S1-S2 regular, no murmurs, no tachycardia, no gallops, no rubs Abdomen: Soft, nontender, no organomegaly, bowel sounds present Neuro: No focal deficits, no facial deformity, AO x3, left lower limb amputation Extremities:Left below the knee amputation Left groin tunnel with clean granulation tissue and minimal drainage Stage IV pressure injury sacral ulcer with necrotic tissues and the floor bed involving muscle but no bone exposure clinically detected at this point. There is no evidence of surrounding cellulitis or purulent drainage from the ulcer There is a raw area surrounding the anal orifice which appears to be clean Urinary Catheter Management^: Matthews: Cath Placed During This Visit: yes Reason for Continuing Indwelling Catheter: Acute Urinary Retention or Obstruction Urinary Catheter Date of Insertion: 03/26/20 Urinary Catheter Time of Insertion: 23:30 Data : 03/27/20 02:50 03/27/20 02:50 Micro: Microbiology 03/27/20 11:52 Gram Stain - Final Buttock 03/26/20 23:23 MRSA Culture - Final Nose 03/26/20 23:23 Gram Stain - Final Buttock 03/26/20 15:47 Blood Culture - Preliminary Blood SPECIMEN COLLECTED 03/26/20 15:40 Blood Culture - Preliminary Blood SPECIMEN COLLECTED A&P Assessment and plan (1) Pressure ulcer: Status: Acute Qualifiers: Pressure injury location: sacral region Pressure injury stage: unspecified pressure injury stage Qualified Code(s): L89.159 - Pressure ulcer of sacral region, unspecified stage (2) Anemia: Status: Acute Qualifiers: Anemia type: iron deficiency Iron deficiency anemia type: unspecified iron deficiency Qualified Code(s): D50.9 - Iron deficiency anemia, unspecified (3) Paraplegia: Status: Acute (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 Patient reports a fever of 104 Fahrenheit at home yesterday. ESR, CRP elevated. CT done in the ER shows: 1. Decubitus ulcer containing gas and probable phlegmon posterior to the distal sacrum and coccyx is new compared to the prior exam. The phlegmon is dissecting inferiorly towards the perineum just posterior to the anus. There are a few punctate fluid collections or microabscesses posterior to the distal anus. The phlegmon posterior to the anus is unchanged in size. The phlegmon appears to have dissected superiorly behind the sacrum/coccyx. No drainable fluid collection/ abscess. No bony destruction or osteomyelitis. 2. 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 There is a thick walled fluid collection surrounding the abnormal femur and dislocated hip joint that is unchanged in size but concerning for low-grade infection with abscess/infected joint fluid. This is unchanged in size compared to the prior exam. On review of prior cultures patient has grown Klebsiella, enterococcus, MRSA, Pseudomonas. For now we will continue with vancomycin and imipenem. Both renally dosed. Patient would most likely need prolonged antibiotics which needs to be culture directed. Culture sent from the OR. We will request for PICC line after blood cultures have remained negative for 48 hours. Results of procalcitonin, TSH noted. We will continue to follow-up blood cultures and wound culture results. Continue normal saline 100 cc/h. Keep mean arterial pressures over 65 mmHg. Case discussed with Dr. Mata. Discussed orthopedic results on CT scan. As per her recommendation if patient is willing patient would most likely need extensive plastic surgery which unfortunately cannot be offered after [facility] [place]. We will confirm with the patient and if needed will call [facility] accordingly. Anemia: Chronic anemia. Hemoglobin 7.1 today. Iron panel suggestive of severe iron deficiency anemia. We will transfuse 1 unit of PRBC. We will start patient on IV iron 200 mg for 5 days to finish a 1 g course. Continue to monitor hemoglobin daily. Continue chronic home medications like intrathecal baclofen, Keppra, oxybutynin, Protonix, senna Colace for chronic issues like chronic constipation neurogenic bladder and spastic paralysis. Full code. High carb diet. N.p.o. after midnight We will hold off on anticoagulation for now given possible debridement tomorrow morning. SCDs contraindicated. Patient is high at high risk of developing thrombosis because of chronic bedridden status. 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
[2020-03-27] MEDS: sodium chloride 0.9% (100 ml) 100 ML 50 ML (16:49)
[2020-03-27 19:38] LABS: HIV 1 & 2 Antigen Non-Reactive (Non-Reactiv)
[2020-03-27 19:39] LABS: HIV 1 & 2 Antibody Non-Reactive (Non-Reactiv)
[2020-03-27 19:45] LABS: Hepatitis A Antibody IgM Non-Reactive (Nonreactive); Hepatitis B Core AB, Total Non-Reactive (Nonreactive); Hepatitis B Surface AB 3.5 (0-8.5); Hepatitis B Surface Antigen Non-Reactive (Nonreactive); Hepatitis C Virus Antibody Non-Reactive (Nonreactive)
[2020-03-27] MEDS: iron sucrose 200 MG in sodium chloride 0.9% (100 ml) 100 ML 220 MG IV (20:21)
[2020-03-27] MEDS: sennosides-docusate Tablet 3 TAB PO (20:59)
[2020-03-27] MEDS: sodium hypochlorite 0.25% Btl 473 mL 1 APPLIC TOPICAL (23:26)
[2020-03-27] MEDS: oxyCODONE-APAP 5-325 mg Tablet 1 TAB PO (23:27)
[2020-03-28] VITALS (9 sets, daily range): BP systolic 86–115; BP diastolic 41–71; PULSE 63–87; RESP 18–20; TEMP 36.6–37.1; O2SAT 96–100
[2020-03-28] MEDS: vancomycin 1,000 MG in sodium chloride 0.9% 250 ML 250 MG IV ×3 (00:12→16:13)
[2020-03-28 02:22] LABS: Basophils % 0.3 %; Eosinophils # 0.2 10^3/uL (0.0-0.8); Eosinophils % 3.1 %; Hematocrit 29.9 % (42.0-52.0); Hemoglobin 8.2 g/dL (11.7-16.6); Lymphocytes # 1.2 10^3/uL (0.8-4.8); Lymphocytes % 16.6 %; Mean Corpuscular HGB Conc 27.4 g/dL (30.0-36.0); Mean Corpuscular Hemoglobin 20.8 pg (28.0-34.0); Mean Corpuscular Volume 75.7 fL (80-94); Mean Platelet Volume 10.1 fL (7.4-10.4); Monocytes # 0.7 10^3/uL (0.2-0.9); Monocytes % 9.1 %; Neutrophils # 5.1 10^3/uL (1.8-7.7); Neutrophils % 70.5 %; Nucleated Red Blood Cells % 0 %; Platelet Count 429 10^3/cmm (130-400); Red Blood Count 3.95 10^6/uL (4.1-5.3); White Blood Count 7.2 10^3/uL (4.0-10.0)
[2020-03-28 02:41] LABS: Alanine Aminotransferase 14 U/L (0-41); Albumin Level 2.5 g/dL (3.5-5.2); Alkaline Phosphatase 45 IU/L (40-130); Anion Gap 14.6 (5-19); Aspartate Amino Transferase 15 U/L (0-40); Blood Urea Nitrogen 7 mg/dL (6-20); Calcium 7.7 mg/dL (8.5-10.5); Carbon Dioxide 23 mmol/L (22-29); Chloride 105 mmol/L (98-107); Globulin 2.9 g/dL (1.3-4.6); Glomerular Filtration Rate 190.3 mL/min (90-130); Glucose 104 mg/dL (65-115); Osmolality Calculated 284 mOsm/kg (285-295); Potassium 3.6 mmol/L (3.5-5.1); Sodium 139 mmol/L (136-145); Total Bilirubin 0.3 mg/dL (0.15-1.2); Total Protein 5.4 g/dL (6.6-8.7)
[2020-03-28 02:54] LABS: Slide Review Slide Review Perform
[2020-03-28] MEDS: ferrous sulfate EC 325 mg Tablet PO ×2 (07:57→17:30)
[2020-03-28] MEDS: sodium hypochlorite 0.25% Btl 473 mL 1 APPLIC TOPICAL ×2 (07:57→08:00)
[2020-03-28] MEDS: levETIRAcetam 500 mg Tablet 1500 MG PO ×2 (07:59→17:30)
[2020-03-28] MEDS: oxybutynin 5 mg Tablet PO ×4 (07:59→22:19)
[2020-03-28] MEDS: pantoprazole DR 40 mg Tablet PO (08:00)
[2020-03-28] MEDS: sodium chloride 0.9% 1,000 ML 75 ML IV (08:00)
[2020-03-28] MEDS: oxyCODONE-APAP 5-325 mg Tablet 1 TAB PO ×2 (08:59→23:03)
[2020-03-28] MEDS: iron sucrose 200 MG in sodium chloride 0.9% (100 ml) 100 ML 220 MG IV (09:00)
--- NOTE | 2020-03-28 14:55 | P.PN_ITS ---
Subjective Subjective: Interval history: No acute events overnight. On examination patient seated comfortably in bed. Patient has had dressing change while I was in the room and I was able to have a look at the wounds with Dr. May. Patient denies of any nausea, vomiting, headache. Labs and vitals noted. Patient has remained hemodynamically stable and afebrile last 24 hours. Vitals/I&O/Wt Last Vital Signs Temp 98.0 F 03/28/20 12:00 Pulse 68 03/28/20 12:00 Resp 20 H 03/28/20 12:00 BP 115/42 03/28/20 12:00 Pulse Ox 97 03/28/20 12:00 03/27/20 03/28/20 03/28/20 22:59 06:59 14:59 Intake Total 230 / 580 750 / 1330 1445 / 1445 Output Total 1600 / 1615 1600 / 3215 1800 / 1800 Balance -1370 / -1035 -850 / -1885 -355 / -355 Weight last 48 hrs Weight 71.622 kg Weight 69.581 kg Physical Exam Narrative: EXAM NARRATIVE: General: No acute distress, AO x3 HEENT: PERRLA, pupils bilaterally equal and reactive Chest: Normal vesicular breath sounds, no added sounds, equal good air entry bilaterally CVS: S1-S2 regular, no murmurs, no tachycardia, no gallops, no rubs Abdomen: Soft, nontender, no organomegaly, bowel sounds present Neuro: No focal deficits, no facial deformity, AO x3, left lower limb amputation Extremities:Left below the knee amputation Left groin tunnel with clean granulation tissue and minimal drainage Stage IV pressure injury sacral ulcer with necrotic tissues and the floor bed involving muscle but no bone exposure clinically detected at this point. There is no evidence of surrounding cellulitis or purulent drainage from the ulcer There is a raw area surrounding the anal orifice which appears to be clean Urinary Catheter Management^: Matthews: Cath Placed During This Visit: yes Reason for Continuing Indwelling Catheter: Assist Healing of Perineal & Sacral Wounds- Incontinent Patients Urinary Catheter Date of Insertion: 03/26/20 Urinary Catheter Time of Insertion: 23:30 Data : 03/28/20 01:53 03/28/20 01:53 Micro: Microbiology 03/27/20 11:52 Gram Stain - Final Buttock Tissue Culture - Preliminary Gram Negative Rods Gram Negative Rods#2 Staphylococcus species 03/26/20 23:23 Gram Stain - Final Buttock Wound Culture - Preliminary 03/26/20 15:47 Blood Culture - Preliminary Blood Staphylococcus species 03/26/20 15:40 Blood Culture - Preliminary Blood NEGATIVE TO DATE 03/26/20 23:23 MRSA Culture - Final Nose A&P Assessment and plan (1) Pressure ulcer: Status: Acute Qualifiers: Pressure injury location: sacral region Pressure injury stage: unspecified pressure injury stage Qualified Code(s): L89.159 - Pressure ulcer of sacral region, unspecified stage (2) Anemia: Status: Acute Qualifiers: Anemia type: iron deficiency Iron deficiency anemia type: unspecified iron deficiency Qualified Code(s): D50.9 - Iron deficiency anemia, unspecified (3) Paraplegia: Status: Acute (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 ESR, CRP elevated. CT done in the ER shows: 1. Decubitus ulcer containing gas and probable phlegmon posterior to the distal sacrum and coccyx is new compared to the prior exam. The phlegmon is dissecting inferiorly towards the perineum just posterior to the anus. There are a few punctate fluid collections or microabscesses posterior to the distal anus. The phlegmon posterior to the anus is unchanged in size. The phlegmon appears to have dissected superiorly behind the sacrum/coccyx. No drainable fluid collection/ abscess. No bony destruction or osteomyelitis. 2. 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 There is a thick walled fluid collection surrounding the abnormal femur and dislocated hip joint that is unchanged in size but concerning for low-grade infection with abscess/infected joint fluid. This is unchanged in size compared to the prior exam. For now we will continue with vancomycin and imipenem. Both renally dosed. Patient would most likely need prolonged antibiotics which needs to be culture directed. Prelim culture reports appreciated. Repeat blood cultures at 1 set of blood cultures from admission positive. 1 blood cultures remain negative patient will get a PICC line for prolonged antibiotic course. Stop IV fluids as patient is tolerating orally well. Keep mean arterial pressures over 65 mmHg. Case discussed with Dr. Mata. Discussed orthopedic results on CT scan. As per her recommendation patient would most likely need extensive plastic surgery which unfortunately cannot be offered after [facility]. Had a long talk with patient regarding the recommendations from Dr. Mata. Also confirmed that given the extensive surgery patient would most likely end up having a colostomy. Patient has some concerns about colostomy but wants to give try to the surgery. We will try to call [facility] to see if patient can be accepted right now versus patient to follow-up as an outpatient. Anemia: Chronic anemia. Hemoglobin 8.2. Iron panel suggestive of severe iron deficiency anemia. Post 1 unit transfusion.. We will start patient on IV iron 200 mg for 5 days to finish a 1 g course. Day 2/5 Continue to monitor hemoglobin daily. Continue chronic home medications like intrathecal baclofen, Keppra, oxybutynin, Protonix, senna Colace for chronic issues like chronic constipation neurogenic bladder and spastic paralysis. Full code. High carb diet. N.p.o. after midnight Heparin 5000 units subcu every 8 Attestations Medical Necessity Statement*: Post debridement of extensive decubitus ulcer, g adolfo-positive bacteremia Time Spent in Patient Care: Greater than 35 minutes (>than 50% of time spent in counselling and/or direct pt care on unit) . Coding Level of Care Code Acute Supervisor Counseling And Guidance for [facility] Diagnoses Pressure ulcer L89.159 Pressure injury location: sacral region Pressure injury stage: unspecified pressure injury stage Anemia D50.9 Anemia type: iron deficiency Iron deficiency anemia type: unspecified iron deficiency Paraplegia G82.20 Acquired spastic diplegia of lower extremities G82.20 Partial epilepsy G40.109 Neurogenic bladder N31.9
[2020-03-28 16:04] LABS: Vancomycin Trough 13.2 ug/mL (10-15)
--- NOTE | 2020-03-28 17:53 | P.PN_ITS ---
Subjective Subjective: Interval history: Overall feels better Vitals/I&O/Wt Last Vital Signs Temp 98.4 F 03/28/20 16:00 Pulse 67 03/28/20 16:00 Resp 20 H 03/28/20 16:00 BP 110/71 03/28/20 16:00 Pulse Ox 99 03/28/20 16:00 03/28/20 03/28/20 03/28/20 06:59 14:59 22:59 Intake Total 850 / 1430 1695 / 1695 Output Total 1600 / 3215 1800 / 1800 Balance -750 / -1785 -105 / -105 Weight last 48 hrs Weight 157 lb 14.4 oz Weight 153 lb 6.4 oz Physical Exam Narrative: EXAM NARRATIVE: Patient is conscious alert oriented X3 BMI 22 Head and neck examination PERRLA no masses no cervical lymphadenopathy no jaund ice Sacral pressure injury ulcer bed carpet cleaner with no pus and no odor Left Groin stable dressing Urinary Catheter Management^: Matthews: Cath Placed During This Visit: yes Reason for Continuing Indwelling Catheter: Assist Healing of Perineal & Sacral Wounds- Incontinent Patients Urinary Catheter Date of Insertion: 03/26/20 Urinary Catheter Time of Insertion: 23:30 Data : 03/29/20 02:50 03/29/20 02:50 Micro: Microbiology 03/28/20 15:07 Blood Culture - Preliminary Blood SPECIMEN COLLECTED 03/28/20 15:00 Blood Culture - Preliminary Blood SPECIMEN COLLECTED 03/27/20 11:52 Gram Stain - Final Buttock Tissue Culture - Preliminary Gram Negative Rods Gram Negative Rods#2 Staphylococcus species 03/26/20 23:23 Gram Stain - Final Buttock Wound Culture - Preliminary 03/26/20 15:47 Blood Culture - Preliminary Blood Staphylococcus species 03/26/20 15:40 Blood Culture - Preliminary Blood NEGATIVE TO DATE A&P Assessment and plan (1) Pressure ulcer: Twice daily wet-to-dry using Dakin's solution packing to the sacral pressure injury ulcer followed by ABDs Dry to dry packing once a day to the left groin wound RTC WCC first availble Status: Acute Qualifiers: Pressure injury location: sacral region Pressure injury stage: unspecified pressure injury stage Qualified Code(s): L89.159 - Pressure ulcer of sacral region, unspecified stage Attestations Medical Necessity Statement*: Per hospitalist Time Spent in Patient Care: 16 - 35 minutes (>than 50% of time spent in counselling and/or direct pt care on unit) . 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
[2020-03-28] MEDS: sennosides-docusate Tablet 3 TAB PO (22:18)
[2020-03-28] MEDS: heparin 5,000 unit/mL INJ 1 mL 5000 UNIT SUBCUT (23:04)
[2020-03-29] VITALS (9 sets, daily range): BP systolic 87–123; BP diastolic 48–66; PULSE 52–85; RESP 16–20; TEMP 36.3–36.7; O2SAT 95–99
[2020-03-29] MEDS: sodium hypochlorite 0.25% Btl 473 mL 1 APPLIC TOPICAL ×2 (00:26→13:52)
[2020-03-29] MEDS: vancomycin 1,000 MG in sodium chloride 0.9% 250 ML 250 MG IV ×2 (00:38→10:30)
[2020-03-29 03:18] LABS: Alanine Aminotransferase 13 U/L (0-41); Albumin Level 2.8 g/dL (3.5-5.2); Alkaline Phosphatase 46 IU/L (40-130); Anion Gap 13.1 (5-19); Blood Urea Nitrogen 8 mg/dL (6-20); Calcium 9.1 mg/dL (8.5-10.5); Carbon Dioxide 25 mmol/L (22-29); Chloride 104 mmol/L (98-107); Globulin 2.9 g/dL (1.3-4.6); Glomerular Filtration Rate 246.2 mL/min (90-130); Glucose 89 mg/dL (65-115); Osmolality Calculated 281 mOsm/kg (285-295); Potassium 4.1 mmol/L (3.5-5.1); Sodium 138 mmol/L (136-145); Total Bilirubin 0.2 mg/dL (0.15-1.2); Total Protein 5.7 g/dL (6.6-8.7)
[2020-03-29 03:29] LABS: Aspartate Amino Transferase 21 U/L (0-40)
[2020-03-29 03:42] LABS: Basophils % 0.5 %; Eosinophils # 0.2 10^3/uL (0.0-0.8); Eosinophils % 5.2 %; Hemoglobin 12.1 g/dL (11.7-16.6); Lymphocytes # 0.9 10^3/uL (0.8-4.8); Lymphocytes % 21.8 %; Mean Corpuscular HGB Conc 28.1 g/dL (30.0-36.0); Mean Corpuscular Hemoglobin 20.8 pg (28.0-34.0); Mean Corpuscular Volume 73.9 fL (80-94); Mean Platelet Volume 9.8 fL (7.4-10.4); Monocytes # 0.4 10^3/uL (0.2-0.9); Monocytes % 10.3 %; Neutrophils # 2.7 10^3/uL (1.8-7.7); Nucleated Red Blood Cells % 0 %; Platelet Count 316 10^3/cmm (130-400); Red Blood Count 5.82 10^6/uL (4.1-5.3); Red Cell Distribution Width 26.6 % (12.1-15.1); White Blood Count 4.3 10^3/uL (4.0-10.0)
[2020-03-29 04:31] LABS: Slide Review Slide Review Perform
[2020-03-29] MEDS: oxyCODONE-APAP 5-325 mg Tablet 1 TAB PO ×2 (08:56→21:32)
[2020-03-29] MEDS: oxybutynin 5 mg Tablet PO ×4 (08:56→21:32)
[2020-03-29] MEDS: levETIRAcetam 500 mg Tablet 1500 MG PO ×2 (08:56→17:58)
[2020-03-29] MEDS: ferrous sulfate EC 325 mg Tablet PO ×2 (08:57→17:59)
[2020-03-29] MEDS: pantoprazole DR 40 mg Tablet PO (08:57)
--- NOTE | 2020-03-29 09:30 | PC.SOCIAL ---
Pg 2 IMM Explained to pt Pg 2 IMM. Pt verbally understands. No questions voiced. Provided pt a copy & left on pt's bedside table. Signed, dated, & timed a copy & placed in pt's chart.
--- NOTE | 2020-03-29 11:56 | PM.PN ---
Subjective Subjective: Interval history: No acute events overnight. On examination patient seated comfortably in bed. Patient denies of any nausea, vomiting, headache. Labs and vitals noted. Patient has remained hemodynamically stable and afebrile last 24 hours. Vitals/I&O/Wt Last Vital Signs Temp 98.0 F 03/29/20 11:04 Pulse 69 03/29/20 11:04 Resp 20 H 03/29/20 11:04 BP 123/66 03/29/20 11:04 Pulse Ox 99 03/29/20 11:04 03/28/20 03/29/20 03/29/20 22:59 06:59 14:59 Intake Total 450 / 2145 1350 / 3495 360 / 360 Output Total 1650 / 3450 3100 / 6550 1999 / 1999 Balance -1200 / -1305 -1750 / -3055 -1640 / -1640 Weight last 48 hrs Weight 71.838 kg Weight 71.622 kg Physical Exam Narrative: EXAM NARRATIVE: General: No acute distress, AO x3 HEENT: PERRLA, pupils bilaterally equal and reactive Chest: Normal vesicular breath sounds, no added sounds, equal good air entry bilaterally CVS: S1-S2 regular, no murmurs, no tachycardia, no gallops, no rubs Abdomen: Soft, nontender, no organomegaly, bowel sounds present Neuro: No focal deficits, no facial deformity, AO x3, left lower limb amputation Extremities:Left below the knee amputation Left groin tunnel with clean granulation tissue and minimal drainage Stage IV pressure injury sacral ulcer with necrotic tissues and the floor bed involving muscle but no bone exposure clinically detected at this point. There is no evidence of surrounding cellulitis or purulent drainage from the ulcer There is a raw area surrounding the anal orifice which appears to be clean Urinary Catheter Management^: Matthews: Cath Placed During This Visit: yes Reason for Continuing Indwelling Catheter: Assist Healing of Perineal & Sacral Wounds- Incontinent Patients Urinary Catheter Date of Insertion: 03/26/20 Urinary Catheter Time of Insertion: 23:30 Data : 03/29/20 02:50 03/29/20 02:50 Micro: Microbiology 03/28/20 15:07 Blood Culture - Preliminary Blood SPECIMEN COLLECTED 03/28/20 15:00 Blood Culture - Preliminary Blood SPECIMEN COLLECTED 03/27/20 11:52 Gram Stain - Final Buttock Tissue Culture - Preliminary Gram Negative Rods Gram Negative Rods#2 Staphylococcus species 03/26/20 23:23 Gram Stain - Final Buttock Wound Culture - Preliminary 03/26/20 15:47 Blood Culture - Preliminary Blood Staphylococcus species A&P Assessment and plan (1) Pressure ulcer: Status: Acute Qualifiers: Pressure injury location: sacral region Pressure injury stage: unspecified pressure injury stage Qualified Code(s): L89.159 - Pressure ulcer of sacral region, unspecified stage (2) Anemia: Status: Acute Qualifiers: Anemia type: iron deficiency Iron deficiency anemia type: unspecified iron deficiency Qualified Code(s): D50.9 - Iron deficiency anemia, unspecified (3) Paraplegia: Status: Acute (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 ESR, CRP elevated. CT done in the ER shows: 1. Decubitus ulcer containing gas and probable phlegmon posterior to the distal sacrum and coccyx is new compared to the prior exam. The phlegmon is dissecting inferiorly towards the perineum just posterior to the anus. There are a few punctate fluid collections or microabscesses posterior to the distal anus. The phlegmon posterior to the anus is unchanged in size. The phlegmon appears to have dissected superiorly behind the sacrum/coccyx. No drainable fluid collection/ abscess. No bony destruction or osteomyelitis. 2. 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 There is a thick walled fluid collection surrounding the abnormal femur and dislocated hip joint that is unchanged in size but concerning for low-grade infection with abscess/infected joint fluid. This is unchanged in size compared to the prior exam. Culture results discussed with microbiology lab. Prelim wound culture results concerning from 2 gram negatives and 1 gram-positive most likely staph aureus. Will have more results by tomorrow. Repeat blood cultures from yesterday have remained negative till now. It is possible 1 culture positive from admission is most likely contaminant but given his extensive pelvic pathology and history of spinal prosthesis will have to confirm by repeat blood cultures. For now continue with vancomycin and imipenem. Patient would most likely need prolonged antibiotics most likely up to 12 weeks. If blood cultures remain negative tomorrow will go ahead and for PICC line. Stop IV fluids as patient is tolerating orally well. Keep mean arterial pressures over 65 mmHg. Case discussed with Dr. Mata. Discussed orthopedic results on CT scan. As per her recommendation patient would most likely need extensive plastic surgery which unfortunately cannot be offered after [facility]. Had a long talk with patient regarding the recommendations from Dr. Mata. Also confirmed that given the extensive surgery patient would most likely end up having a colostomy. Patient has some concerns about colostomy but wants to give try to the surgery. Spoke with Ortho physician and internal medicine physician at [facility]. As per them they do not unfortunately have capabilities of kind of surgery patient would require. Patient states he would like to try [facility] as he has been treated over there before. We will try to give a call today. Anemia: Chronic anemia. Hemoglobin stable. Shows 12.1 today from 8.2 yesterday I am concerned is a false report. Iron panel suggestive of severe iron deficiency anemia. Post 1 unit transfusion.. We will start patient on IV iron 200 mg for 5 days to finish a 1 g course. Day 3/5 Continue to monitor hemoglobin daily. Protien energy malnutrition: Albumin 2.8. Will check prealbumin. Concerned because it will cause delayed and prolonged healing. We will try to arrange for air bed for patient. Neurogenic bladder: Continue with Matthews catheter. Will help with better healing. Continue chronic home medications like intrathecal baclofen, Keppra, oxybutynin, Protonix, senna Colace for chronic issues like chronic constipation neurogenic bladder and spastic paralysis. Full code. High carb diet. N.p.o. 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
[2020-03-29] MEDS: iron sucrose 200 MG in sodium chloride 0.9% (100 ml) 100 ML 220 MG IV (14:17)
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
[2020-03-29] MEDS: sennosides-docusate Tablet 3 TAB PO (21:31)
--- NOTE | 2020-03-29 23:38 | PC.NURSE ---
Transfer Pt. transferred to [facility] in [facility] at this time by [facility]. Report was called by this nurse to Jannet Conley LPN at 1954, all questions were answered. Vital signs 103/48, HR 79, R 18, T 98.0 oral, O2 95% on room air. All patient belongings packed and taken with EMS, including patient's personal wheelchair. Patient keys for van placed in bag at nurses station with note, patient brother is to pick them up in the AM per patient.
== END 2020-03-29 23:45 | disposition short-term general hospital (02) | DRG 580 ==
LOC: ER 14:44 → MEDSURG 18:13
PROVIDERS: Surgery; Admitting Provider Student in an Organized Health Care Education/Training Program; Emergency Provider Emergency Medicine; Visit Provider Student in an Organized Health Care Education/Training Program
PROC: 0QB10ZZ Excision of Sacrum, Open Approach (ICD-10-PCS; principal; 2020-03-27 10:20)
DX: L89.154 Pressure ulcer of sacral region, stage 4 (principal); G82.20 Paraplegia, unspecified; G40.109 Localization-related (focal) (partial) symptomatic epilepsy and epileptic syndromes with simple partial seizures, not intractable, without status epilepticus; L02.91 Cutaneous abscess, unspecified; E46 Unspecified protein-calorie malnutrition; R78.81 Bacteremia; M86.8X0 Other osteomyelitis, multiple sites; D50.9 Iron deficiency anemia, unspecified; N31.9 Neuromuscular dysfunction of bladder, unspecified; Z68.22 Body mass index [BMI] 22.0-22.9, adult; Z99.3 Dependence on wheelchair; Z86.14 Personal history of Methicillin resistant Staphylococcus aureus infection; K59.09 Other constipation; B95.8 Unspecified staphylococcus as the cause of diseases classified elsewhere
CPT/HCPCS: 12345; 36415; 36430; 51702; 74177; 80053; 80202; 80306; 81003; 83540; 83550; 83605; 83735; 84100; 84145; 84443; 85025; 85651; 86140; 86705; 86706; 86709; 86803; 86850; 86900; 86920; 87040; 87070; 87077; 87176; 87186; 87205; 87340; 87641; 87806; 94664; 96372; 96375; 99283; A6446; J0131; J0330; J0743; J1644; J1756; J1885; J2001; J2250; J2704; J3010; J3370; J3490; J7030; J7050; P9016; Q9967

== ENCOUNTER 2020-04-09 10:14 | Outpatient (RCR) | payer MEDICARE, MEDICAID, SELFPAY ==
[2020-04-09 10:28] LABS: Basophils % 0.4 %; Eosinophils # 0.6 10^3/uL (0.0-0.8); Hematocrit 32.3 % (42.0-52.0); Hemoglobin 9.4 g/dL (11.7-16.6); Lymphocytes % 14.5 %; Mean Corpuscular HGB Conc 29.1 g/dL (30.0-36.0); Mean Corpuscular Hemoglobin 21.6 pg (28.0-34.0); Mean Corpuscular Volume 74.3 fL (80-94); Mean Platelet Volume 10.2 fL (7.4-10.4); Monocytes # 0.8 10^3/uL (0.2-0.9); Monocytes % 10.9 %; Neutrophils # 4.6 10^3/uL (1.8-7.7); Neutrophils % 65.9 %; Nucleated Red Blood Cells % 0 %; Platelet Count 358 10^3/cmm (130-400); Red Blood Count 4.35 10^6/uL (4.1-5.3); Red Cell Distribution Width 25.9 % (12.1-15.1); White Blood Count 6.9 10^3/uL (4.0-10.0)
[2020-04-09 11:07] LABS: Alanine Aminotransferase 15 U/L (0-41); Albumin Level 3.3 g/dL (3.5-5.2); Alkaline Phosphatase 67 IU/L (40-130); Anion Gap 14.7 (5-19); Aspartate Amino Transferase 17 U/L (0-40); Blood Urea Nitrogen 12 mg/dL (6-20); C Reactive Protein 63.3 mg/L (0.0-4.9); Calcium 9.5 mg/dL (8.5-10.5); Carbon Dioxide 28 mmol/L (22-29); Chloride 99 mmol/L (98-107); Erythrocyte Sedimentation Rate 44 mm/hr (0-10); Globulin 3.8 g/dL (1.3-4.6); Glomerular Filtration Rate 190.3 mL/min (90-130); Glucose 89 mg/dL (65-115); Osmolality Calculated 282 mOsm/kg (285-295); Potassium 3.7 mmol/L (3.5-5.1); Sodium 138 mmol/L (136-145); Total Bilirubin 0.2 mg/dL (0.15-1.2); Total Protein 7.1 g/dL (6.6-8.7); Vancomycin Trough 10.8 ug/mL (10-15)
== END 2020-05-08 23:59 | disposition home or self-care (01) ==
LOC: LAB 10:14
PROVIDERS: Visit Provider Family Medicine
DX: M86.8X8 Other osteomyelitis, other site (principal)
CPT/HCPCS: 80053; 80202; 85025; 85651; 86140

== ENCOUNTER 2020-04-17 10:39 | Outpatient (CLI) | payer MEDICARE, MEDICAID, SELFPAY ==
[2020-04-17 11:07] LABS: Basophils % 0.3 %; Eosinophils # 0.6 10^3/uL (0.0-0.8); Eosinophils % 8.6 %; Hematocrit 31.5 % (42.0-52.0); Lymphocytes # 0.8 10^3/uL (0.8-4.8); Lymphocytes % 12.5 %; Mean Corpuscular HGB Conc 28.6 g/dL (30.0-36.0); Mean Corpuscular Hemoglobin 22.2 pg (28.0-34.0); Mean Corpuscular Volume 77.8 fL (80-94); Mean Platelet Volume 9.8 fL (7.4-10.4); Monocytes # 0.7 10^3/uL (0.2-0.9); Monocytes % 11.2 %; Neutrophils # 4.4 10^3/uL (1.8-7.7); Neutrophils % 67.1 %; Nucleated Red Blood Cells % 0 %; Platelet Count 289 10^3/cmm (130-400); Red Blood Count 4.05 10^6/uL (4.1-5.3); Red Cell Distribution Width 23.9 % (12.1-15.1); White Blood Count 6.5 10^3/uL (4.0-10.0)
[2020-04-17 11:32] LABS: Alanine Aminotransferase 18 U/L (0-41); Albumin Level 3.2 g/dL (3.5-5.2); Alkaline Phosphatase 66 IU/L (40-130); Anion Gap 15.6 (5-19); Aspartate Amino Transferase 18 U/L (0-40); Blood Urea Nitrogen 8 mg/dL (6-20); C Reactive Protein 59.3 mg/L (0.0-4.9); Calcium 9.5 mg/dL (8.5-10.5); Carbon Dioxide 27 mmol/L (22-29); Chloride 100 mmol/L (98-107); Globulin 3.4 g/dL (1.3-4.6); Glomerular Filtration Rate 190.3 mL/min (90-130); Glucose 94 mg/dL (65-115); Osmolality Calculated 284 mOsm/kg (285-295); Potassium 3.6 mmol/L (3.5-5.1); Sodium 139 mmol/L (136-145); Total Bilirubin 0.2 mg/dL (0.15-1.2); Total Protein 6.6 g/dL (6.6-8.7); Vancomycin Trough 16.9 ug/mL (10-15)
[2020-04-17 12:13] LABS: Erythrocyte Sedimentation Rate 42 mm/hr (0-10)
== END 2020-04-17 10:40 | disposition home or self-care (01) ==
LOC: LAB 10:44
PROVIDERS: Visit Provider Family Medicine
DX: M46.20 Osteomyelitis of vertebra, site unspecified (principal)
CPT/HCPCS: 80053; 80202; 85025; 85651; 86140

== ENCOUNTER 2020-04-24 16:34 | Outpatient (CLI) | payer MEDICARE, MEDICAID, SELFPAY ==
[2020-04-24 16:58] LABS: Basophils % 0.2 %; Eosinophils # 0.5 10^3/uL (0.0-0.8); Eosinophils % 10.3 %; Hematocrit 31.1 % (42.0-52.0); Lymphocytes # 0.8 10^3/uL (0.8-4.8); Lymphocytes % 15.9 %; Mean Corpuscular HGB Conc 28.9 g/dL (30.0-36.0); Mean Corpuscular Hemoglobin 22.4 pg (28.0-34.0); Mean Corpuscular Volume 77.6 fL (80-94); Mean Platelet Volume 10.6 fL (7.4-10.4); Monocytes # 0.6 10^3/uL (0.2-0.9); Monocytes % 11.5 %; Neutrophils # 3.1 10^3/uL (1.8-7.7); Neutrophils % 61.9 %; Nucleated Red Blood Cells % 0 %; Platelet Count 331 10^3/cmm (130-400); Red Blood Count 4.01 10^6/uL (4.1-5.3); Red Cell Distribution Width 21.2 % (12.1-15.1)
[2020-04-24 17:34] LABS: Erythrocyte Sedimentation Rate 37 mm/hr (0-10)
[2020-04-24 17:44] LABS: Alanine Aminotransferase 19 U/L (0-41); Albumin Level 3.1 g/dL (3.5-5.2); Alkaline Phosphatase 69 IU/L (40-130); Aspartate Amino Transferase 23 U/L (0-40); Blood Urea Nitrogen 11 mg/dL (6-20); C Reactive Protein 58.7 mg/L (0.0-4.9); Calcium 8.8 mg/dL (8.5-10.5); Carbon Dioxide 27 mmol/L (22-29); Chloride 105 mmol/L (98-107); Globulin 3.1 g/dL (1.3-4.6); Glomerular Filtration Rate 246.2 mL/min (90-130); Glucose 77 mg/dL (65-115); Osmolality Calculated 291 mOsm/kg (285-295); Sodium 143 mmol/L (136-145); Total Bilirubin 0.2 mg/dL (0.15-1.2); Total Protein 6.2 g/dL (6.6-8.7); Vancomycin Trough 16.2 ug/mL (10-15)
== END 2020-04-24 16:35 | disposition home or self-care (01) ==
LOC: LAB 16:37
PROVIDERS: Visit Provider Family Medicine
DX: M46.20 Osteomyelitis of vertebra, site unspecified (principal)
CPT/HCPCS: 80053; 80202; 85025; 85651; 86140

== ENCOUNTER 2020-04-28 15:03 | Emergency (ER) | payer MEDICARE, MEDICAID, SELFPAY ==
[2020-04-28 15:28] VITALS: BP 131/77; PULSE 75; RESP 18; TEMP 36.8; O2SAT 98; BMI 22.3
--- NOTE | 2020-04-28 16:08 | USR_ITS ---
PROCEDURE INFORMATION: Exam: US Duplex Left Upper Extremity Veins, Limited Exam date and time: 04/28/2020 4:10 PM Age: 34 years old Clinical indication: Other: Picc line won't draw/ slow infusion; Additional info: Picc line won't draw/slow infusion TECHNIQUE: Imaging protocol: Real-time Duplex ultrasound of the Left Upper Extremity with 2-D hollingsworth scale, color Doppler flow and spectral waveform analysis with image documentation. Limited exam focused on the left upper extremity veins. COMPARISON: No relevant prior studies available. FINDINGS: Left deep veins: Partial nonocclusive thrombus in the distal left subclavian vein. The jugular, axillary, and brachial veins are patent and compressible. Left superficial veins: Occlusive thrombus in the left basilic vein. Soft tissues: Unremarkable. Other findings: A PICC line catheter is visualized within the basilic vein and extending into the subclavian vein. US/[place] [id number] IMPRESSION: 1. Partial deep vein thrombosis in the distal left subclavian vein. 2. Occlusive superficial thrombus in the basilic vein, surrounding the PICC line catheter.
--- NOTE | 2020-04-28 16:08 | XRR_ITS ---
PROCEDURE INFORMATION: Exam: XR Chest, 1 View Exam date and time: 04/28/2020 4:56 PM Age: 34 years old Clinical indication: Device placement; Additional info: Eval for picc placement TECHNIQUE: Imaging protocol: XR of the chest Views: 1 view. COMPARISON: No relevant prior studies available. FINDINGS: Tubes, catheters and devices: Left PICC line with tip extending across the midline to the proximal superior vena cava. The tip of the catheter is not visualized due to obscuration by spine hardware. Lungs: Unremarkable. No consolidation. Pleural space: Unremarkable. No pleural effusion. No pneumothorax. Heart/Mediastinum: Unremarkable. No cardiomegaly. Bones/joints: Old right rib fractures. Scoliosis and cervical thoracic fusion hardware. XR/XR chest 1V portable [id number] IMPRESSION: 1. PICC line tip in the region of the proximal SVC. 2. No acute findings.
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
[2020-04-28 17:19] LABS: Basophils % 0.4 %; Eosinophils # 0.5 10^3/uL (0.0-0.8); Eosinophils % 6.2 %; Hematocrit 32.6 % (42.0-52.0); Hemoglobin 9.5 g/dL (11.7-16.6); Lymphocytes # 0.8 10^3/uL (0.8-4.8); Lymphocytes % 11.1 %; Mean Corpuscular HGB Conc 29.1 g/dL (30.0-36.0); Mean Corpuscular Hemoglobin 22.7 pg (28.0-34.0); Mean Corpuscular Volume 77.8 fL (80-94); Mean Platelet Volume 10.1 fL (7.4-10.4); Monocytes # 0.8 10^3/uL (0.2-0.9); Monocytes % 10.3 %; Neutrophils # 5.4 10^3/uL (1.8-7.7); Neutrophils % 71.3 %; Nucleated Red Blood Cells % 0 %; Red Blood Count 4.19 10^6/uL (4.1-5.3); White Blood Count 7.5 10^3/uL (4.0-10.0)
[2020-04-28 17:32] LABS: Platelet Count 313 10^3/cmm (130-400)
[2020-04-28 17:33] LABS: Slide Review Slide Review Perform
[2020-04-28 17:35] LABS: Alanine Aminotransferase 16 U/L (0-41); Albumin Level 3.1 g/dL (3.5-5.2); Alkaline Phosphatase 64 IU/L (40-130); Anion Gap 13.3 (5-19); Aspartate Amino Transferase 18 U/L (0-40); Blood Urea Nitrogen 13 mg/dL (6-20); Calcium 9.2 mg/dL (8.5-10.5); Carbon Dioxide 25 mmol/L (22-29); Chloride 106 mmol/L (98-107); Globulin 3.1 g/dL (1.3-4.6); Glomerular Filtration Rate 190.3 mL/min (90-130); Glucose 85 mg/dL (65-115); Osmolality Calculated 285 mOsm/kg (285-295); Potassium 4.3 mmol/L (3.5-5.1); Sodium 140 mmol/L (136-145); Total Bilirubin 0.2 mg/dL (0.15-1.2); Total Protein 6.2 g/dL (6.6-8.7)
[2020-04-28] MEDS: heparin 5,000 unit/mL INJ 1 mL IV (19:28)
[2020-04-28] MEDS: heparin drip 25,000 UNIT/500 ML PREMIX 20.3 UNIT IV (19:34)
[2020-04-28 19:37] VITALS: BP 122/72; PULSE 85; RESP 18; O2SAT 99
[2020-04-28 21:00] VITALS: RESP 17
[2020-04-28] MEDS: ondansetron 2 mg/ML SDV 2 mL 4 MG IVP (21:00)
[2020-04-28] MEDS: morphine 4 mg/mL SDV 1 mL IVP (21:00)
[2020-04-28 21:20] VITALS: BP 122/72; PULSE 87; RESP 18; TEMP 37.1; O2SAT 98
== END 2020-04-28 21:23 | disposition other institution (70) ==
PROVIDERS: Physician Assistant; Emergency Provider Emergency Medicine
DX: G80.1 Spastic diplegic cerebral palsy (principal); L89.154 Pressure ulcer of sacral region, stage 4; Z89.519 Acquired absence of unspecified leg below knee; I82.621 Acute embolism and thrombosis of deep veins of right upper extremity
CPT/HCPCS: 12345; 36415; 71045; 80053; 85025; 87040; 87070; 87077; 87186; 87205; 93971; 96365; 96366; 96375; 99283; 99285; J1644; J2270; J2405

== ENCOUNTER 2020-05-08 14:20 | Outpatient (CLI) | payer MEDICARE, MEDICAID, SELFPAY ==
[2020-05-08 14:57] LABS: Basophils % 0.4 %; Eosinophils # 0.4 10^3/uL (0.0-0.8); Eosinophils % 8.3 %; Hematocrit 33.3 % (42.0-52.0); Hemoglobin 9.5 g/dL (11.7-16.6); Lymphocytes # 0.9 10^3/uL (0.8-4.8); Mean Corpuscular HGB Conc 28.5 g/dL (30.0-36.0); Mean Corpuscular Hemoglobin 22.9 pg (28.0-34.0); Mean Corpuscular Volume 80.4 fL (80-94); Mean Platelet Volume 10.3 fL (7.4-10.4); Monocytes # 0.5 10^3/uL (0.2-0.9); Neutrophils % 62.1 %; Nucleated Red Blood Cells % 0 %; Platelet Count 309 10^3/cmm (130-400); Red Blood Count 4.14 10^6/uL (4.1-5.3); Red Cell Distribution Width 17.6 % (12.1-15.1); White Blood Count 4.8 10^3/uL (4.0-10.0)
[2020-05-08 15:36] LABS: Alanine Aminotransferase 46 U/L (0-41); Albumin Level 3.3 g/dL (3.5-5.2); Alkaline Phosphatase 103 IU/L (40-130); Anion Gap 15.3 (5-19); Aspartate Amino Transferase 27 U/L (0-40); Blood Urea Nitrogen 14 mg/dL (6-20); C Reactive Protein 26.4 mg/L (0.0-4.9); Calcium 8.7 mg/dL (8.5-10.5); Carbon Dioxide 28 mmol/L (22-29); Chloride 102 mmol/L (98-107); Glomerular Filtration Rate 246.2 mL/min (90-130); Glucose 99 mg/dL (65-115); Osmolality Calculated 288 mOsm/kg (285-295); Potassium 4.3 mmol/L (3.5-5.1); Sodium 141 mmol/L (136-145); Total Bilirubin 0.2 mg/dL (0.15-1.2); Total Protein 6.3 g/dL (6.6-8.7); Vancomycin Trough 10.7 ug/mL (10-15)
[2020-05-08 16:07] LABS: Erythrocyte Sedimentation Rate 35 mm/hr (0-10)
== END 2020-05-08 14:21 | disposition home or self-care (01) ==
LOC: LAB 14:24
PROVIDERS: Visit Provider Internal Medicine Infectious Disease
DX: M46.28 Osteomyelitis of vertebra, sacral and sacrococcygeal region (principal)
CPT/HCPCS: 80053; 80202; 85025; 85651; 86140

== ENCOUNTER 2020-05-14 15:09 | Outpatient (CLI) | payer MEDICARE, MEDICAID, SELFPAY ==
[2020-05-14 15:54] LABS: Basophils % 0.7 %; Eosinophils # 0.4 10^3/uL (0.0-0.8); Eosinophils % 6.4 %; Hematocrit 35.1 % (42.0-52.0); Hemoglobin 9.9 g/dL (11.7-16.6); Lymphocytes # 0.7 10^3/uL (0.8-4.8); Lymphocytes % 12.3 %; Mean Corpuscular HGB Conc 28.2 g/dL (30.0-36.0); Mean Corpuscular Hemoglobin 22.6 pg (28.0-34.0); Mean Platelet Volume 10.3 fL (7.4-10.4); Monocytes # 0.6 10^3/uL (0.2-0.9); Monocytes % 10.7 %; Neutrophils # 3.9 10^3/uL (1.8-7.7); Neutrophils % 69.7 %; Nucleated Red Blood Cells % 0 %; Platelet Count 395 10^3/cmm (130-400); Red Blood Count 4.39 10^6/uL (4.1-5.3); Red Cell Distribution Width 17.5 % (12.1-15.1); White Blood Count 5.6 10^3/uL (4.0-10.0)
[2020-05-14 16:03] LABS: INR 3.99 (0.8-1.2)
[2020-05-14 16:30] LABS: Alanine Aminotransferase 24 U/L (0-41); Albumin Level 3.5 g/dL (3.5-5.2); Alkaline Phosphatase 88 IU/L (40-130); Anion Gap 14.2 (5-19); Aspartate Amino Transferase 19 U/L (0-40); Blood Urea Nitrogen 13 mg/dL (6-20); Carbon Dioxide 28 mmol/L (22-29); Chloride 101 mmol/L (98-107); Globulin 2.5 g/dL (1.3-4.6); Glomerular Filtration Rate 246.2 mL/min (90-130); Glucose 72 mg/dL (65-115); Osmolality Calculated 283 mOsm/kg (285-295); Potassium 4.2 mmol/L (3.5-5.1); Sodium 139 mmol/L (136-145); Total Bilirubin 0.2 mg/dL (0.15-1.2)
[2020-05-14 16:31] LABS: C Reactive Protein 50.2 mg/L (0.0-4.9)
[2020-05-14 17:03] LABS: Erythrocyte Sedimentation Rate 33 mm/hr (0-10)
== END 2020-05-14 15:10 | disposition home or self-care (01) ==
LOC: LAB 15:12
PROVIDERS: PCP Family Medicine; Visit Provider Internal Medicine Infectious Disease
DX: M46.28 Osteomyelitis of vertebra, sacral and sacrococcygeal region (principal)
CPT/HCPCS: 80053; 80202; 85025; 85610; 85651; 86140

== ENCOUNTER 2020-05-15 08:36 | Outpatient (CLI) | payer MEDICARE, MEDICAID, SELFPAY ==
--- NOTE | 2020-05-15 08:44 | CT_ITS ---
WS: [id number] CT pelvis TECHNIQUE: Contrast-enhanced CT of the pelvis with coronal and sagittal reformatted images. CLINICAL INFORMATION: FOLLOW UP OSTEOMYELITIS COMPARISON: CT March 26, 2020, March 08, 2020. DLP: 580.[address] scans at [facility] use at least one of these dose optimization techniques: automat ed exposure control; mA and/or kV adjustment per patient size (includes targeted exams where dose is matched to clinical indication); or iterative reconstruction. FINDINGS:Previously described decubitus ulcer along the coccyx is similar in appearance with similar appearing skin thickening and ulceration today. Central concavity is slightly increased. Diffuse soft tissue thickening extends to the anus and rectum and is inseparable. This extends inferiorly to the level of the perineum with additional midline decubitus ulceration at the level of the perineum. Associated persistent perirectal and perineal soft tissue thickening and inflammatory stranding altho ugh improved compared to previous. No drainable abscess or fluid collection.No definite evidence of o steomyelitis in the underlying sacrum were coccyx. Again seen is abnormal sclerosis and cortical thickening involving the proximal right femur with diff use chronic appearing periosteal reaction. Findings are most consistent with chronic osteomyelitis wi th dysplastic chronically dislocated right hip. Again seen is a thick-walled fluid collection surroun ding the proximal femur and dislocated right hip essentially unchanged in size compared to the prior examination. Again this is suspicious for infection with diffuse peripheral enhancement. IVC filter. Matthews catheter. Diffuse body wall anasarca. Enlarged pelvic and inguinal lymph nodes like ly reactive.Chronic dislocation dysplasia left hip. This is unchanged. CT/CT pelvis w con* [id number] IMPRESSION: 1. Previously described decubitus ulcer overlying the coccyx is similar in ricci earance with more central concavity today. No drainable abscess or fluid collec tion. 2. Soft tissue thickening extends from the sacral decubitus ulcer into the per ineum with additional dorsal decubitus ulcer unchanged. 3. Associated Perirectal and perineal soft tissue thickening and inflammatory stranding. This is unchanged from previous. No drainable abscess or fluid colle ction. 4. Matthews catheter in place. 5. Stable dysplastic and dislocated right hip with chronic peripheral enhancin g low-attenuation fluid collection. This is unchanged from previous but remains suspicious for infection with chronic osteomyelitis. 6. No evidence of osteomyelitis in the underlying sacrum or coccyx. 7. Diffuse body wall anasarca. 8. Partially visualized spinal stimulator and IVC filter. 9. Multiple enlarged pelvic and inguinal lymph nodes stable in appearance and presumably reactive.
[2020-05-15] MEDS: iohexol 300 mg/mL 100 mL Btl IV (09:42)
== END 2020-05-15 08:37 | disposition home or self-care (01) ==
LOC: RADWPI 08:37 → RAD 10:37
PROVIDERS: PCP Family Medicine; Visit Provider Internal Medicine Infectious Disease
DX: M86.8X8 Other osteomyelitis, other site (principal); L98.499 Non-pressure chronic ulcer of skin of other sites with unspecified severity; Z96.0 Presence of urogenital implants; R60.1 Generalized edema; R59.9 Enlarged lymph nodes, unspecified
CPT/HCPCS: 72193; Q9967

== ENCOUNTER 2020-05-17 13:51 | Outpatient (CLI) | payer MEDICARE, MEDICAID, SELFPAY ==
[2020-05-17 14:47] LABS: INR 4.56 (0.8-1.2)
== END 2020-05-17 13:52 | disposition home or self-care (01) ==
LOC: LAB 13:54
PROVIDERS: PCP Family Medicine; Visit Provider Family Medicine
DX: I82.409 Acute embolism and thrombosis of unspecified deep veins of unspecified lower extremity (principal)
CPT/HCPCS: 85610

== ENCOUNTER → 2020-05-18 09:45 | Outpatient (BNVA) | payer MEDICARE, MEDICAID, SELFPAY | PROVIDERS: PCP Family Medicine; Visit Provider Nurse Practitioner Family | DX: I82.409 Acute embolism and thrombosis of unspecified deep veins of unspecified lower extremity (principal); D64.9 Anemia, unspecified | CPT/HCPCS: 85610 ==

== ENCOUNTER 2020-05-19 10:04 | Outpatient (CLI) | payer MEDICARE, MEDICAID, SELFPAY ==
[2020-05-19 10:26] LABS: INR 1.86 (0.8-1.2)
== END 2020-05-19 10:05 | disposition home or self-care (01) ==
LOC: LAB 10:07
PROVIDERS: PCP Family Medicine; Visit Provider Family Medicine
DX: M46.28 Osteomyelitis of vertebra, sacral and sacrococcygeal region (principal)
CPT/HCPCS: 85610

== ENCOUNTER 2020-05-22 15:22 | Outpatient (CLI) | payer MEDICARE, MEDICAID, SELFPAY ==
[2020-05-22 16:08] LABS: Hematocrit 33.7 % (42.0-52.0); Hemoglobin 9.5 g/dL (11.7-16.6); Mean Corpuscular HGB Conc 28.2 g/dL (30.0-36.0); Mean Corpuscular Hemoglobin 23.3 pg (28.0-34.0); Mean Corpuscular Volume 82.6 fL (80-94); Platelet Count 340 10^3/cmm (130-400); Red Blood Count 4.08 10^6/uL (4.1-5.3); Red Cell Distribution Width 17.2 % (12.1-15.1); White Blood Count 6.4 10^3/uL (4.0-10.0)
[2020-05-22 16:49] LABS: INR 2.51 (0.8-1.2)
[2020-05-22 16:58] LABS: Erythrocyte Sedimentation Rate 30 mm/hr (0-10)
[2020-05-22 17:40] LABS: Absolute Eosinophils 0.3 10^3/cmm (0.0-0.7); Absolute Segmented Neutrophil 3.7 10/cmm (1.6-7.1); Band Neutrophils Absolute 0.3 10^3/cmm (0.0-1.2); Eosinophils 6 %; Lymphocytes 23 %; Monocytes Absolute 0.5 10^3/cmm (0.1-0.6); Segmented Neutrophils 58 %; Total Cells Counted 100 (0-100)
[2020-05-22 17:41] LABS: Platelet Estimate Normal (Normal)
[2020-05-22 18:24] LABS: Alanine Aminotransferase 17 U/L (0-41); Albumin Level 3.4 g/dL (3.5-5.2); Alkaline Phosphatase 73 IU/L (40-130); Anion Gap 16.1 (5-19); Aspartate Amino Transferase 16 U/L (0-40); Blood Urea Nitrogen 11 mg/dL (6-20); Calcium 8.6 mg/dL (8.5-10.5); Carbon Dioxide 27 mmol/L (22-29); Chloride 100 mmol/L (98-107); Globulin 2.1 g/dL (1.3-4.6); Glomerular Filtration Rate 190.3 mL/min (90-130); Glucose 71 mg/dL (65-115); Osmolality Calculated 283 mOsm/kg (285-295); Potassium 4.1 mmol/L (3.5-5.1); Sodium 139 mmol/L (136-145); Total Bilirubin 0.2 mg/dL (0.15-1.2); Total Protein 5.5 g/dL (6.6-8.7); Vancomycin Trough 11.5 ug/mL (10-15)
== END 2020-05-22 15:23 | disposition home or self-care (01) ==
LOC: LAB 15:24
PROVIDERS: PCP Family Medicine; Visit Provider Family Medicine
DX: M46.28 Osteomyelitis of vertebra, sacral and sacrococcygeal region (principal); I82.409 Acute embolism and thrombosis of unspecified deep veins of unspecified lower extremity
CPT/HCPCS: 80053; 80202; 85007; 85027; 85610; 85651; 86140

== ENCOUNTER 2020-05-29 14:29 | Outpatient (CLI) | payer MEDICARE, MEDICAID, SELFPAY ==
[2020-05-29 15:39] LABS: Basophils % 0.6 %; Eosinophils # 0.4 10^3/uL (0.0-0.8); Eosinophils % 6.2 %; Hematocrit 34.9 % (42.0-52.0); Lymphocytes % 14.9 %; Mean Corpuscular HGB Conc 28.7 g/dL (30.0-36.0); Mean Corpuscular Hemoglobin 23.8 pg (28.0-34.0); Mean Corpuscular Volume 83.1 fL (80-94); Mean Platelet Volume 10.6 fL (7.4-10.4); Monocytes # 0.7 10^3/uL (0.2-0.9); Monocytes % 10.1 %; Neutrophils # 4.53 10^3/uL (1.8-7.7); Neutrophils % 67.9 %; Nucleated Red Blood Cells % 0 %; Platelet Count 339 10^3/cmm (130-400); White Blood Count 6.7 10^3/uL (4.0-10.0)
[2020-05-29 16:18] LABS: INR 3.53 (0.8-1.2)
[2020-05-29 16:29] LABS: Alanine Aminotransferase 19 U/L (0-41); Albumin Level 3.7 g/dL (3.5-5.2); Alkaline Phosphatase 80 IU/L (40-130); Anion Gap 14.7 (5-19); Aspartate Amino Transferase 19 U/L (0-40); Blood Urea Nitrogen 13 mg/dL (6-20); Calcium 9.2 mg/dL (8.5-10.5); Carbon Dioxide 27 mmol/L (22-29); Chloride 103 mmol/L (98-107); Globulin 2.9 g/dL (1.3-4.6); Glomerular Filtration Rate 190.3 mL/min (90-130); Glucose 52 mg/dL (65-115); Osmolality Calculated 286 mOsm/kg (285-295); Potassium 3.7 mmol/L (3.5-5.1); Sodium 141 mmol/L (136-145); Total Bilirubin 0.2 mg/dL (0.15-1.2); Total Protein 6.6 g/dL (6.6-8.7); Vancomycin Trough 11.9 ug/mL (10-15)
[2020-05-29 17:15] LABS: C Reactive Protein 26.6 mg/L (0.0-4.9)
[2020-05-29 19:03] LABS: Erythrocyte Sedimentation Rate 9 mm/hr (0-10)
== END 2020-05-29 14:30 | disposition home or self-care (01) ==
LOC: LAB 14:32
PROVIDERS: PCP Family Medicine; Visit Provider Family Medicine
DX: M46.20 Osteomyelitis of vertebra, site unspecified (principal)
CPT/HCPCS: 80053; 80202; 85025; 85610; 85651; 86140

== ENCOUNTER → 2020-05-31 08:14 | Outpatient (BNVA) | payer MEDICARE, MEDICAID, SELFPAY | PROVIDERS: Visit Provider Specialist | DX: G82.20 Paraplegia, unspecified (principal); M86.659 Other chronic osteomyelitis, unspecified thigh; N31.9 Neuromuscular dysfunction of bladder, unspecified; K59.09 Other constipation | CPT/HCPCS: 62370; 99214 ==

== ENCOUNTER 2020-06-01 13:01 | Emergency (ER) | payer MEDICARE, MEDICAID, SELFPAY ==
[2020-06-01 14:21] VITALS: BP 144/74; PULSE 71; RESP 16; TEMP 36.7; O2SAT 100; BMI 22.3
--- NOTE | 2020-06-01 15:04 | XRR_ITS ---
PROCEDURE INFORMATION: Exam: XR Abdomen, 2 Views Exam date and time: 06/01/2020 3:05 PM Age: 34 years old Clinical indication: Condition or disease; Other: Eval intrathecal pump; Prior surgery TECHNIQUE: Imaging protocol: XR of the abdomen. Views: 2 Views. COMPARISON: CT abdomen pelvis w con* [id number] 03/26/2020 4:18 PM FINDINGS: Tubes, catheters and devices: There is a metallic leg chronic device in place in the anterior aspect of the right lower quadrant. This finding has a tube extending into the thecal sac and was seen on CT examination. This corresponds to the patient's intrathecal pump. Gastrointestinal tract: Multiple gas-filled bowel loops seen corresponding to mild ileus.. Intraperitoneal space: Normal. No free air. Bones/joints: Chronic deformities seen in the bilateral hips Other findings: A vena cava filter is in place in good position. XR/XR KUB [id number] IMPRESSION: 1. Intrathecal pump is in place in the right anterior abdomen in good position. 2. Negative for acute GI abnormality. 3. Chronic bone deformities bilateral hips
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
[2020-06-01] MEDS: acetaminophen 500 mg Tablet 1000 MG PO (15:26)
[2020-06-01] MEDS: diazePAM 5 mg Tablet 10 MG PO (15:28)
[2020-06-01] MEDS: LORazepam 2 mg/mL INJ 1 mL IVP (15:29)
[2020-06-01] MEDS: baclofen 10 mg Tablet 20 MG PO ×3 (16:11→21:03)
[2020-06-01] MEDS: diazePAM 5 mg Tablet PO (17:00)
[2020-06-01] MEDS: hyDROXYzine 25 mg Capsule 50 MG PO (17:14)
[2020-06-01 17:23] LABS: Basophils % 0.3 %; Eosinophils # 0.1 10^3/uL (0.0-0.8); Eosinophils % 1.3 %; Hematocrit 39.3 % (42.0-52.0); Hemoglobin 11.6 g/dL (11.7-16.6); Lymphocytes # 1.3 10^3/uL (0.8-4.8); Lymphocytes % 13.6 %; Mean Corpuscular HGB Conc 29.5 g/dL (30.0-36.0); Mean Corpuscular Hemoglobin 23.3 pg (28.0-34.0); Mean Corpuscular Volume 79.1 fL (80-94); Mean Platelet Volume 10.1 fL (7.4-10.4); Monocytes # 0.8 10^3/uL (0.2-0.9); Monocytes % 8.3 %; Neutrophils # 7.16 10^3/uL (1.8-7.7); Neutrophils % 76.3 %; Nucleated Red Blood Cells % 0 %; Platelet Count 377 10^3/cmm (130-400); Red Blood Count 4.97 10^6/uL (4.1-5.3); Red Cell Distribution Width 17.2 % (12.1-15.1); White Blood Count 9.4 10^3/uL (4.0-10.0)
[2020-06-01] MEDS: sodium chloride 0.9% 1,000 ML 999 ML IV (17:29)
[2020-06-01 17:31] LABS: INR 3.09 (0.8-1.2)
[2020-06-01 17:36] LABS: Lactate (Lactic Acid level) 1.7 mmol/L (0.5-2.2)
[2020-06-01 17:37] LABS: Alanine Aminotransferase 18 U/L (0-41); Alkaline Phosphatase 82 IU/L (40-130); Anion Gap 16.1 (5-19); Aspartate Amino Transferase 19 U/L (0-40); Blood Urea Nitrogen 12 mg/dL (6-20); Calcium 9.7 mg/dL (8.5-10.5); Carbon Dioxide 24 mmol/L (22-29); Chloride 102 mmol/L (98-107); Creatine Phosphokinase 235 U/L (39-308); Globulin 3.2 g/dL (1.3-4.6); Glomerular Filtration Rate 190.3 mL/min (90-130); Glucose 87 mg/dL (65-115); Magnesium 1.8 mg/dL (1.7-2.3); Osmolality Calculated 281 mOsm/kg (285-295); Potassium 4.1 mmol/L (3.5-5.1); Sodium 138 mmol/L (136-145); Total Bilirubin 0.3 mg/dL (0.15-1.2); Total Protein 7.2 g/dL (6.6-8.7)
[2020-06-01 18:11] LABS: Blood Urine 3+ (Negative); Glucose Urine UA Norm (Normal); Ketones Urine 2+ (Negative); Protein Urine Neg (Negative); Specific Gravity, Urine 1.025 (1.005-1.030); Urine Appearance Hazy (CLEAR); Urine Color Yellow (Yellow); pH Urine 6 (5-7)
[2020-06-01 18:12] LABS: Add Urine Microscopic? YES; Bilirubin Urine Neg (NEGATIVE); Leukocyte Esterase Urine 2+ (Negative); Nitrate Urine Positive (Negative); Urobilinogen Urine Norm (Negative)
[2020-06-01 18:15] LABS: Add Urine Culture? Yes; Bacteria Urine 4+; Mucus Urine 1+; Squamous Epithelial Cell Urine 0-4 (0-5)
[2020-06-01] MEDS: ondansetron 2 mg/ML SDV 2 mL 4 MG IVP (18:38)
[2020-06-01 18:41] VITALS: RESP 17; O2SAT 99
[2020-06-01] MEDS: HYDROmorphone 1 mg/mL INJ 1 mL 0.5 MG IVP ×3 (18:41→22:32)
[2020-06-01 19:55] LABS: CKMB 7.1 ng/mL (0-10.4)
[2020-06-01] MEDS: diphenhydrAMINE 50 mg/mL SDV 1mL IVP (20:09)
[2020-06-01 20:48] VITALS: RESP 16; O2SAT 98
[2020-06-01] MEDS: cefTRIAXone 1,000 MG in sodium chloride 0.9% (plus) 50 ML 100 MG IV (22:30)
[2020-06-01 22:32] VITALS: RESP 17; O2SAT 94
[2020-06-02 00:33] VITALS: BP 131/74; PULSE 73; RESP 16; O2SAT 94
== END 2020-06-02 00:38 | disposition short-term general hospital (02) ==
PROVIDERS: Emergency Provider Emergency Medicine; PCP Orthopaedic Surgery
DX: G80.1 Spastic diplegic cerebral palsy (principal); G82.20 Paraplegia, unspecified; F19.939 Other psychoactive substance use, unspecified with withdrawal, unspecified; Z89.519 Acquired absence of unspecified leg below knee; M86.659 Other chronic osteomyelitis, unspecified thigh; N31.9 Neuromuscular dysfunction of bladder, unspecified; K59.09 Other constipation
CPT/HCPCS: 12345; 74018; 80053; 81001; 81003; 82550; 82553; 83605; 83735; 85025; 85610; 87077; 87086; 87186; 96365; 96375; 96376; 99283; 99285; J0696; J1170; J1200; J2060; J2405; J7030

== ENCOUNTER 2020-06-04 16:29 | Outpatient (CLI) | payer MEDICARE, MEDICAID, SELFPAY ==
[2020-06-04 17:34] LABS: INR 2.51 (0.8-1.2)
[2020-06-04 17:46] LABS: Basophils % 0.5 %; Eosinophils # 0.4 10^3/uL (0.0-0.8); Eosinophils % 4.4 %; Hematocrit 36.6 % (42.0-52.0); Hemoglobin 10.8 g/dL (11.7-16.6); Lymphocytes # 1.2 10^3/uL (0.8-4.8); Lymphocytes % 14.1 %; Mean Corpuscular HGB Conc 29.5 g/dL (30.0-36.0); Mean Corpuscular Hemoglobin 23.4 pg (28.0-34.0); Mean Corpuscular Volume 79.2 fL (80-94); Mean Platelet Volume 11.7 fL (7.4-10.4); Monocytes # 0.8 10^3/uL (0.2-0.9); Monocytes % 9.5 %; Neutrophils # 6.09 10^3/uL (1.8-7.7); Neutrophils % 71.3 %; Nucleated Red Blood Cells % 0 %; Platelet Count 374 10^3/cmm (130-400); Red Blood Count 4.62 10^6/uL (4.1-5.3); Red Cell Distribution Width 16.8 % (12.1-15.1); White Blood Count 8.5 10^3/uL (4.0-10.0)
== END 2020-06-04 16:30 | disposition home or self-care (01) ==
LOC: LAB 16:32
PROVIDERS: PCP Orthopaedic Surgery; Visit Provider Internal Medicine Infectious Disease
DX: M46.20 Osteomyelitis of vertebra, site unspecified (principal)
CPT/HCPCS: 85025; 85610

== ENCOUNTER 2020-06-26 15:52 | Outpatient (CLI) | payer MEDICARE, MEDICAID, SELFPAY ==
[2020-06-26 16:24] LABS: INR 1.65 (0.8-1.2); Partial Thromboplastin Time 45.9 SECONDS (23.9-36.7)
[2020-06-26 16:49] LABS: Basophils % 0.6 %; Eosinophils # 0.4 10^3/uL (0.0-0.8); Hematocrit 36.4 % (42.0-52.0); Hemoglobin 10.8 g/dL (11.7-16.6); Lymphocytes # 1.1 10^3/uL (0.8-4.8); Lymphocytes % 16.4 %; Mean Corpuscular HGB Conc 29.7 g/dL (30.0-36.0); Mean Corpuscular Hemoglobin 24.4 pg (28.0-34.0); Mean Corpuscular Volume 82.4 fL (80-94); Mean Platelet Volume 10.9 fL (7.4-10.4); Monocytes # 0.6 10^3/uL (0.2-0.9); Monocytes % 8.9 %; Neutrophils # 4.72 10^3/uL (1.8-7.7); Neutrophils % 67.8 %; Nucleated Red Blood Cells % 0 %; Platelet Count 400 10^3/cmm (130-400); Red Blood Count 4.42 10^6/uL (4.1-5.3); Red Cell Distribution Width 17.6 % (12.1-15.1)
[2020-06-26 17:35] LABS: Anion Gap 15.3 (5-19); Blood Urea Nitrogen 16 mg/dL (6-20); Calcium 8.4 mg/dL (8.5-10.5); Carbon Dioxide 24 mmol/L (22-29); Chloride 103 mmol/L (98-107); Glomerular Filtration Rate 246.2 mL/min (90-130); Glucose 92 mg/dL (65-115); Osmolality Calculated 282 mOsm/kg (285-295); Potassium 4.3 mmol/L (3.5-5.1); Sodium 138 mmol/L (136-145)
[2020-06-28 21:44] LABS: Coronavirus Lab Test PTC Negative
== END 2020-06-26 15:53 | disposition home or self-care (01) ==
LOC: LAB 15:57
PROVIDERS: Radiology Diagnostic Radiology; PCP Orthopaedic Surgery; Visit Provider Neurological Surgery
DX: Z41.9 Encounter for procedure for purposes other than remedying health state, unspecified (principal)
CPT/HCPCS: 80048; 85025; 85610; 85730; 87635

== ENCOUNTER 2020-07-13 13:23 | Outpatient (CLI) | payer MEDICARE, MEDICAID, SELFPAY | END 2020-07-13 13:24 | disposition home or self-care (01) | LOC: WOUND 13:26 | PROVIDERS: PCP Orthopaedic Surgery; Visit Provider Surgery | DX: L89.152 Pressure ulcer of sacral region, stage 2 (principal); L89.312 Pressure ulcer of right buttock, stage 2; L89.322 Pressure ulcer of left buttock, stage 2; L89.892 Pressure ulcer of other site, stage 2 | CPT/HCPCS: 11043; 97597; G0463 ==

== ENCOUNTER 2020-07-20 14:23 | Outpatient (CLI) | payer MEDICARE, MEDICAID, SELFPAY | END 2020-07-20 14:24 | disposition home or self-care (01) | LOC: WOUND 14:24 | PROVIDERS: PCP Orthopaedic Surgery; Visit Provider Surgery | DX: L89.153 Pressure ulcer of sacral region, stage 3 (principal); L89.312 Pressure ulcer of right buttock, stage 2; L89.324 Pressure ulcer of left buttock, stage 4; L89.893 Pressure ulcer of other site, stage 3 | CPT/HCPCS: 11042; 11043 ==

== ENCOUNTER 2020-07-27 13:16 | Outpatient (CLI) | payer MEDICARE, MEDICAID, SELFPAY | END 2020-07-27 13:17 | disposition home or self-care (01) | LOC: WOUND 13:17 | PROVIDERS: PCP Orthopaedic Surgery; Visit Provider Nurse Practitioner Family | DX: L89.153 Pressure ulcer of sacral region, stage 3 (principal); L89.312 Pressure ulcer of right buttock, stage 2; L89.324 Pressure ulcer of left buttock, stage 4; L89.893 Pressure ulcer of other site, stage 3 | CPT/HCPCS: 11042 ==

== ENCOUNTER → 2020-08-02 08:32 | Outpatient (BNVA) | payer MEDICARE, MEDICAID, SELFPAY | PROVIDERS: PCP Orthopaedic Surgery; Visit Provider Specialist | DX: T85.610A Breakdown (mechanical) of cranial or spinal infusion catheter, initial encounter (principal); G80.1 Spastic diplegic cerebral palsy; L89.154 Pressure ulcer of sacral region, stage 4 | CPT/HCPCS: 62368; 99214 ==

== ENCOUNTER 2020-08-03 13:30 | Outpatient (CLI) | payer MEDICARE, MEDICAID, SELFPAY | END 2020-08-03 13:31 | disposition home or self-care (01) | LOC: WOUND 13:31 | PROVIDERS: PCP Orthopaedic Surgery; Visit Provider Surgery | DX: L89.153 Pressure ulcer of sacral region, stage 3 (principal); L89.312 Pressure ulcer of right buttock, stage 2; L89.324 Pressure ulcer of left buttock, stage 4; L89.893 Pressure ulcer of other site, stage 3 | CPT/HCPCS: 11043 ==

== ENCOUNTER 2020-08-10 13:06 | Outpatient (CLI) | payer MEDICARE, MEDICAID, SELFPAY | END 2020-08-10 13:07 | disposition home or self-care (01) | LOC: WOUND 13:07 | PROVIDERS: PCP Orthopaedic Surgery; Visit Provider Surgery | DX: L89.153 Pressure ulcer of sacral region, stage 3 (principal); L89.324 Pressure ulcer of left buttock, stage 4; L89.893 Pressure ulcer of other site, stage 3 | CPT/HCPCS: 11043 ==

== ENCOUNTER → 2020-08-13 09:39 | Outpatient (BNVA) | payer MEDICARE, MEDICAID, SELFPAY | PROVIDERS: PCP Orthopaedic Surgery; Visit Provider Specialist | DX: G82.20 Paraplegia, unspecified (principal) | CPT/HCPCS: 99212 ==

== ENCOUNTER 2020-08-24 13:00 | Outpatient (CLI) | payer MEDICARE, MEDICAID, SELFPAY | END 2020-08-24 13:01 | disposition home or self-care (01) | LOC: WOUND 13:01 | PROVIDERS: PCP Orthopaedic Surgery; Visit Provider Surgery | DX: L89.153 Pressure ulcer of sacral region, stage 3 (principal); L89.893 Pressure ulcer of other site, stage 3 | CPT/HCPCS: 11043 ==

== ENCOUNTER 2020-08-31 14:04 | Outpatient (CLI) | payer MEDICARE, MEDICAID, SELFPAY | END 2020-08-31 14:05 | disposition home or self-care (01) | LOC: WOUND 14:05 | PROVIDERS: PCP Orthopaedic Surgery; Visit Provider Surgery | DX: L89.153 Pressure ulcer of sacral region, stage 3 (principal); L89.893 Pressure ulcer of other site, stage 3 | CPT/HCPCS: 11042; 11043 ==

== ENCOUNTER → 2020-09-06 16:55 | Outpatient (BNVA) | payer MEDICARE, MEDICAID, SELFPAY | PROVIDERS: PCP Orthopaedic Surgery; Visit Provider Nurse Practitioner Family | DX: I82.622 Acute embolism and thrombosis of deep veins of left upper extremity (principal) | CPT/HCPCS: 85610 ==

== ENCOUNTER 2020-09-07 15:32 | Outpatient (CLI) | payer MEDICARE, MEDICAID, SELFPAY | END 2020-09-07 15:33 | disposition home or self-care (01) | LOC: WOUND 15:33 | PROVIDERS: PCP Orthopaedic Surgery; Visit Provider Surgery | DX: L89.153 Pressure ulcer of sacral region, stage 3 (principal); L89.893 Pressure ulcer of other site, stage 3 | CPT/HCPCS: 11043 ==

== ENCOUNTER 2020-09-13 12:42 | Outpatient (RCR) | payer MEDICARE, MEDICAID, SELFPAY | END 2020-10-08 23:59 | disposition home or self-care (01) | LOC: SPT 12:42 | PROVIDERS: PCP Family Medicine; Referring Provider Nurse Practitioner Family; Visit Provider Nurse Practitioner Family | DX: M25.661 Stiffness of right knee, not elsewhere classified (principal); R60.9 Edema, unspecified; M21.371 Foot drop, right foot | CPT/HCPCS: 62370; 97161; 99214 ==

== ENCOUNTER 2020-09-21 13:29 | Outpatient (CLI) | payer MEDICARE, MEDICAID, SELFPAY | END 2020-09-21 13:30 | disposition home or self-care (01) | LOC: WOUND 13:30 | PROVIDERS: PCP Family Medicine; Visit Provider Surgery | DX: L89.153 Pressure ulcer of sacral region, stage 3 (principal); L89.893 Pressure ulcer of other site, stage 3 | CPT/HCPCS: 11042; 97597 ==

== ENCOUNTER 2020-09-28 09:46 | Outpatient (CLI) | payer MEDICARE, MEDICAID, SELFPAY ==
--- NOTE | 2020-09-28 09:58 | CT_ITS ---
WS: [id number] CT PELVIS WITH IV CONTRAST. HISTORY: L GROIN PAIN TECHNIQUE: Contiguous imaging is performed of the pelvis with contrast. Coronal and sagittal reformat s are reviewed. All CT scans at [facility] use at least one of these dose optimization te chniques: automated exposure control; mA and/or kV adjustment per patient size (includes targeted exa ms where dose is matched to clinical indication); or iterative reconstruction. DLP: 789.26 mGy.cm COMPARISON: 05/15/2020 Contrast: Omnipaque 300; 75 mL IV. Previously described left-sided decubitus ulcer posterior to the coccyx has slightly improved. Ulcer tract extends from the coccyx to the LEFT gluteal region. There is less soft tissue thickening and pe ripheral enhancement. The extent of the soft tissue edema and soft tissue thickening over the posteri or pelvis has moderately improved. There is still soft tissue thickening involving the gluteal muscle s bilaterally. There is a fluid collection surrounding the proximal RIGHT femur which was also presen t on the prior study. Chronic infection is not excluded. Chronically dislocated hips bilaterally with hypertrophic bone thickening may be from prior episodes of infection with healing. Matthews catheter present in a nondistended urinary bladder. Mild perirectal soft tissue thickening has improved. There is no fluid collection within the abdomen. Bilateral inguinal lymph nodes are slightl y enlarged but decreased since 05/15/2020. CT/CT pelvis w con* [id number] IMPRESSION: 1. Moderate improvement in the decubitus ulcer centered over the coccyx in the LEFT perineum. 2. Mild improvement in the soft tissue thickening and edema over the posterior pelvis. 3. Complex fluid surrounding the dislocated RIGHT hip bone destruction which a ppears chronic. Chronic osteomyelitis and joint effusion are suspected. No inte rval change. 4. No adverse change in the mildly enlarged inguinal lymph nodes.
--- NOTE | 2020-09-28 10:08 | CT_ITS ---
WS: [id number] CT CERVICAL spine with IV contrast. HISTORY: M21.371 - Foot drop, right foot Technique: All CT scans at [facility] use at least one of these dose optimization techniq ues: automated exposure control; mA and/or kV adjustment per patient size (includes targeted exams wh ere dose is matched to clinical indication); or iterative reconstruction. DLP: 682.78 mGy.cm COMPARISON: 10/19/2014 CT. Contrast: Omnipaque 300; 150 cc. Anterior cervical fusion hardware at C6-7 with interbody spacer. Bone fusion across the disc spacer. Partial disc fusion with disc space narrowing at C5-6 and C7-T1. Significant hardware artifact in the cervical thoracic region. There are additional Cueva rods noted posteriorly in the upper thorac ic spine. No enhancing soft tissue masses are identified. No bone destruction. Ankylosis and bone fus ion posteriorly along the Cueva rods beginning at the C5 level and extending into the upper thor acic spine bilaterally. No cord compression is identified. Evaluation of the cervical canal and cord at the C6-T1 levels limited. Paraspinal soft tissue thickening in the upper thoracic spine was also present on the prior study. On today's examination there is soft tissue thickening which may be scarring but no enhancing abscess s een on this exam. CT/CT cervical spine w con [id number] IMPRESSION: 1. Extensive prior fusion hardware in the mid to lower cervical spine as above . Posterior fusion rods with complete ankylosis. No bone destruction or evidenc e for osteomyelitis by CT. 2. Upper thoracic spine paraspinal soft tissue thickening without a focal absc ess.
--- NOTE | 2020-09-28 10:08 | CT_ITS ---
WS: [id number] CT THORACIC spine with IV contrast. HISTORY: G82.50 - Quadriplegia, unspecified TECHNIQUE: Contiguous 2.5 mm axial images are reviewed to thoracic spine. Images are reformatted in s agittal and coronal planes. All CT scans at [facility] use at least one of these dose opt imization techniques: automated exposure control; mA and/or kV adjustment per patient size (includes targeted exams where dose is matched to clinical indication); or iterative reconstruction. DLP: 2403.78 mGy.cm Contrast: Omnipaque 300; 150 cc. COMPARISON: 10/19/2014 Mild LEFT curvature thoracic spine. Posterior cervical thoracic fusion hardware extends from the mid cervical spine to the T6 level. Cueva rods and bilateral pedicle screws. No enhancing masses or cord compression is identified. There are areas throughout the thoracic spine that are obscured by artifact from the thoracic hardware. No lucencies or bone destruction identified . The conus tapers normally, the distal extent is not included on this thoracic spine examination. Do rsal column stimulator wire is noted terminating near the T9 level. CT/CT thoracic spine w con [id number] IMPRESSION: 1. No enhancing masses or bone destruction identified. 2. Extensive orthopedic hardware in the cervical thoracic spine for stabilizat ion purposes. Healed osteomyelitis at the T3 level. No new osteomyelitis or epi dural abscess identified on this examination.
[2020-09-28] MEDS: iohexol 300 mg/mL 100 mL Btl IV ×2 (11:46→11:48)
== END 2020-09-28 09:47 | disposition home or self-care (01) ==
LOC: RAD 09:49
PROVIDERS: PCP Family Medicine; Visit Provider Surgery
DX: R10.30 Lower abdominal pain, unspecified (principal); M21.371 Foot drop, right foot; G82.20 Paraplegia, unspecified; L89.159 Pressure ulcer of sacral region, unspecified stage; R60.0 Localized edema
CPT/HCPCS: 72126; 72129; 72193

== ENCOUNTER 2020-09-28 13:56 | Outpatient (CLI) | payer MEDICARE, MEDICAID, SELFPAY | END 2020-09-28 13:57 | disposition home or self-care (01) | LOC: WOUND 13:58 | PROVIDERS: PCP Family Medicine; Visit Provider Surgery | DX: I96 Gangrene, not elsewhere classified (principal); L89.153 Pressure ulcer of sacral region, stage 3; L89.893 Pressure ulcer of other site, stage 3; R10.30 Lower abdominal pain, unspecified; M21.371 Foot drop, right foot; G82.20 Paraplegia, unspecified; L89.159 Pressure ulcer of sacral region, unspecified stage; R60.0 Localized edema | CPT/HCPCS: 11042; 15271; 72126; 72129; 72193; Q4186 ==

== ENCOUNTER 2020-10-03 14:21 | Outpatient (CLI) | payer MEDICARE, MEDICAID, SELFPAY | END 2020-10-03 14:22 | disposition home or self-care (01) | LOC: WOUND 14:22 | PROVIDERS: PCP Family Medicine; Visit Provider Nurse Practitioner Family | DX: I96 Gangrene, not elsewhere classified (principal); L89.153 Pressure ulcer of sacral region, stage 3; L89.893 Pressure ulcer of other site, stage 3 | CPT/HCPCS: 11042 ==

== ENCOUNTER → 2020-10-11 09:31 | Outpatient (BNVA) | payer MEDICARE, MEDICAID, SELFPAY | PROVIDERS: PCP Family Medicine; Visit Provider Specialist | DX: G82.50 Quadriplegia, unspecified (principal); G40.109 Localization-related (focal) (partial) symptomatic epilepsy and epileptic syndromes with simple partial seizures, not intractable, without status epilepticus; R79.89 Other specified abnormal findings of blood chemistry; N31.9 Neuromuscular dysfunction of bladder, unspecified | CPT/HCPCS: 62370; 99213 ==

== ENCOUNTER 2020-10-12 13:42 | Outpatient (CLI) | payer MEDICARE, MEDICAID, SELFPAY | END 2020-10-12 13:43 | disposition home or self-care (01) | LOC: WOUND 13:43 | PROVIDERS: PCP Family Medicine; Visit Provider Surgery | DX: L89.153 Pressure ulcer of sacral region, stage 3 (principal); L89.893 Pressure ulcer of other site, stage 3 | CPT/HCPCS: 11043 ==

== ENCOUNTER 2020-10-17 09:42 | Outpatient (CLI) | payer MEDICARE, MEDICAID, SELFPAY ==
--- NOTE | 2020-10-17 09:45 | NM_ITS ---
WS: [id number] THREE-PHASE BONE SCAN HISTORY: NON HEALING ULCER/PAIN COMPARISON: 04/13/[address] 09/28/2020. Patient is is injected with 24.0 mCi Tc99m HDP intravenously. Immediate angiographic phase imaging is performed over the area of concern. Static blood pool imaging also performed. Two-hour whole-body sc intigrams performed in anterior and posterior projections. Additional large field of view imaging sub mitted as necessary. Angiographic and static blood pool phase imaging is negative over the pelvis. On the two-hour delayed images there is no increased uptake in the soft tissues of the pelvis or over the coccyx or sacrum t o suggest osteomyelitis. Chronic deformity involving the proximal LEFT femur was also present on the prior study of 04/13/2008. Status post [id number] amputation on the LEFT. NM/NM bone 3 phase [id number] IMPRESSION: No soft tissue or bone uptake involving the sacrum, coccyx or pelvis. No osteom yelitis identified.
== END 2020-10-17 09:43 | disposition home or self-care (01) ==
LOC: RAD 09:43
PROVIDERS: PCP Family Medicine; Visit Provider Surgery
DX: L89.159 Pressure ulcer of sacral region, unspecified stage (principal)
CPT/HCPCS: 78315; A9561

== ENCOUNTER 2020-10-19 14:52 | Outpatient (CLI) | payer MEDICARE, MEDICAID, SELFPAY | END 2020-10-19 14:53 | disposition home or self-care (01) | LOC: WOUND 14:53 | PROVIDERS: PCP Family Medicine; Visit Provider Surgery | DX: L89.153 Pressure ulcer of sacral region, stage 3 (principal); L89.893 Pressure ulcer of other site, stage 3 | CPT/HCPCS: 11043 ==

== ENCOUNTER → 2020-11-14 12:14 | Outpatient (BNVA) | payer MEDICARE, MEDICAID, SELFPAY | PROVIDERS: PCP Family Medicine; Visit Provider Specialist | DX: G82.20 Paraplegia, unspecified (principal); N31.9 Neuromuscular dysfunction of bladder, unspecified; K59.09 Other constipation; Z89.612 Acquired absence of left leg above knee; Z96.89 Presence of other specified functional implants | CPT/HCPCS: 62370; 99213 ==

== ENCOUNTER 2020-11-23 13:11 | Outpatient (CLI) | payer MEDICARE, MEDICAID, SELFPAY | END 2020-11-23 13:12 | disposition home or self-care (01) | LOC: WOUND 13:12 | PROVIDERS: PCP Family Medicine; Visit Provider Surgery | DX: L89.153 Pressure ulcer of sacral region, stage 3 (principal); L89.893 Pressure ulcer of other site, stage 3; L89.312 Pressure ulcer of right buttock, stage 2 | CPT/HCPCS: 11042; 97597 ==

== ENCOUNTER → 2020-11-26 10:38 | Outpatient (BNVA) | payer MEDICARE, MEDICAID, SELFPAY | PROVIDERS: PCP Family Medicine; Referring Provider Specialist; Visit Provider Urology | DX: N31.9 Neuromuscular dysfunction of bladder, unspecified (principal); Z86.39 Personal history of other endocrine, nutritional and metabolic disease; R79.89 Other specified abnormal findings of blood chemistry | CPT/HCPCS: 84403 ==

== ENCOUNTER 2020-12-07 13:53 | Outpatient (CLI) | payer MEDICARE, MEDICAID, SELFPAY | END 2020-12-07 13:54 | disposition home or self-care (01) | LOC: WOUND 13:53 | PROVIDERS: PCP Family Medicine; Visit Provider Surgery | DX: L89.153 Pressure ulcer of sacral region, stage 3 (principal); L89.893 Pressure ulcer of other site, stage 3; L89.312 Pressure ulcer of right buttock, stage 2 | CPT/HCPCS: 11043 ==

== ENCOUNTER → 2020-12-13 09:05 | Outpatient (BNVA) | payer MEDICARE, MEDICAID, SELFPAY | PROVIDERS: PCP Family Medicine; Visit Provider Specialist | DX: G82.50 Quadriplegia, unspecified (principal); Z96.89 Presence of other specified functional implants | CPT/HCPCS: 36415; 62370; 80053; 84134; 99213 ==

== ENCOUNTER 2020-12-13 11:02 | Outpatient (CLI) | payer MEDICARE, MEDICAID, SELFPAY ==
[2020-12-13 12:00] LABS: Alanine Aminotransferase 24 U/L (0-41); Albumin Level 3.5 g/dL (3.5-5.2); Alkaline Phosphatase 77 IU/L (40-130); Anion Gap 11.8 (5-19); Aspartate Amino Transferase 20 U/L (0-40); Blood Urea Nitrogen 14 mg/dL (6-20); Calcium 8.7 mg/dL (8.5-10.5); Carbon Dioxide 24 mmol/L (22-29); Chloride 105 mmol/L (98-107); Globulin 3.1 g/dL (1.3-4.6); Glomerular Filtration Rate 341.2 mL/min (90-130); Glucose 93 mg/dL (65-115); Osmolality Calculated 284 mOsm/kg (285-295); Potassium 3.8 mmol/L (3.5-5.1); Sodium 137 mmol/L (136-145); Total Bilirubin 0.2 mg/dL (0.15-1.2); Total Protein 6.6 g/dL (6.6-8.7)
[2020-12-13 12:14] LABS: Prealbumin 16.7 mg/dL (20-40)
== END 2020-12-13 11:03 | disposition home or self-care (01) ==
LOC: LAB 11:08
PROVIDERS: PCP Family Medicine; Visit Provider Surgery
DX: R52 Pain, unspecified (principal); L53.9 Erythematous condition, unspecified; L98.499 Non-pressure chronic ulcer of skin of other sites with unspecified severity
CPT/HCPCS: 36415; 80053; 84134

== ENCOUNTER 2020-12-21 14:14 | Outpatient (CLI) | payer MEDICARE, MEDICAID, SELFPAY | END 2020-12-21 14:15 | disposition home or self-care (01) | LOC: WOUND 14:15 | PROVIDERS: PCP Family Medicine; Visit Provider Surgery | DX: I96 Gangrene, not elsewhere classified (principal); L89.153 Pressure ulcer of sacral region, stage 3; L89.893 Pressure ulcer of other site, stage 3 | CPT/HCPCS: 11042; 11043 ==

== ENCOUNTER 2021-01-04 14:30 | Outpatient (CLI) | payer MEDICARE, MEDICAID, SELFPAY | END 2021-01-04 14:31 | disposition home or self-care (01) | LOC: WOUND 14:31 | PROVIDERS: PCP Family Medicine; Visit Provider Surgery | DX: I96 Gangrene, not elsewhere classified (principal); L89.893 Pressure ulcer of other site, stage 3; L89.153 Pressure ulcer of sacral region, stage 3 | CPT/HCPCS: 11043 ==

== ENCOUNTER → 2021-01-09 13:52 | Outpatient (BNVA) | payer MEDICARE, MEDICAID, SELFPAY | PROVIDERS: PCP Family Medicine; Visit Provider Surgery | DX: Z01.812 Encounter for preprocedural laboratory examination (principal); Z20.828 Contact with and (suspected) exposure to other viral communicable diseases | CPT/HCPCS: 87635 ==

== ENCOUNTER 2021-01-11 15:11 | Outpatient (CLI) | payer MEDICARE, MEDICAID, SELFPAY | END 2021-01-11 15:12 | disposition home or self-care (01) | LOC: WOUND 15:12 | PROVIDERS: PCP Family Medicine; Visit Provider Surgery | DX: I96 Gangrene, not elsewhere classified (principal); L89.153 Pressure ulcer of sacral region, stage 3; L89.893 Pressure ulcer of other site, stage 3 | CPT/HCPCS: 11043 ==

== ENCOUNTER 2021-01-14 06:31 | Day surgery (SDC) | payer MEDICARE, MEDICAID, SELFPAY ==
[2021-01-11 10:28] VITALS: BMI 27.8
--- NOTE | 2021-01-14 06:56 | W.PM.OPSUD ---
Surgery/Procedure H&P Update DATE OF PROCEDURE: January 14, 2021 DATE H&P PERFORMED: 01/04/21 H&P UPDATE INFORMATION: I have reviewed H&P completed within last 30 days, I have examined patient prior to procedure and No changes to prior documentation PREOP DIAGNOSIS: Left groin wound PRIMARY INDICATION FOR PROCEDURE: The same PLANNED PROCEDURE: Operation Date: 01/14/21 08:15 Proposed Procedures p Debridement Left groin wound and application of skin substitute [id number] L89.153(Not Applicable) - Rudy May MD
[2021-01-14] MEDS: sodium chloride 0.9% 1,000 ML 30 ML IV (07:40)
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
[2021-01-14] MEDS: midazolam 1 mg/mL INJ 2 mL 2 MG IVP (08:28)
--- NOTE | 2021-01-14 09:19 | P.OP_ITS ---
Operative Report Date of procedure: January 14, 2021 Pre-op Diagnosis: Left groin wound Procedure Done: Debridement of left groin wound Placement of skin substitutes in the form of 1 g of amnio fill(allograft) Implants: 1 g of amnio fill AF 10-P2 [id number] Expires 11/20/2024 Specimens removed/disposition: Tissues from the wound skin edges for permanent pathology Tissues from the wound bed for cultures and sensitivities Surgeon: Rudy May [employer] Border Officer: pulmonary function technician Jerome Circulating nurse Elda Anesthesia: General (LMA utility engineer Lizeth) Estimated blood loss (mL): 5 Condition: stable Disposition: same day Brief History: This is a pleasant 35 years old gentleman with history of complex chronic left groin wound. Full H&P and informed consent per chart Procedure: Procedure: After identifying the patient holding area, marked before the procedure by myself, patient was then transferred to the operative suite, was placed in supine position, IV antibiotics were given per protocol, LMA was placed by the anesthesia provider, prep and drape of left groin area done under the usual sterile technique. Time-out was done verifying the patient's name/date of /planned procedure and destination after the procedure, all were in agreement. Started by excising the unhealthy necrotic indurated tissues of left groin wound using sharp debridement and edges of the skin were sent for permanent pathology.Incision was created at the skin level and went all the way down to the subcutaneous tissues underlying fascia, following by sharp debridement of the wound bed including unhealthy tissues followed by sharp curettAGE. Predebridement measurements 4 x 1 x 1.7 cm Post debridement measurements 4 x 1.2 x 1[address] to the fascial layer Copious and thorough irrigation of the wound was done with warm saline using Pulsavac, followed by appropriate hemostasis followed by placement of a piece of amnio fill 1 g as an allograft at the bed of the wound, followed by piece of Adaptic then benzoin around the edges of the wound and Steri-Strips dry gauze and ABD Patient tolerated the procedure well, count of instruments needles and sponges were completed at the end of the procedure. Patient was then transferred to the recovery area in stable condition. I was present for the whole entire procedure
[2021-01-14 09:24] VITALS: BP 82/49; PULSE 90; RESP 16; TEMP 36.3; O2SAT 96
[2021-01-14 09:30] VITALS: BP 83/41; PULSE 83; RESP 17; O2SAT 96
[2021-01-14 09:35] VITALS: BP 90/44; PULSE 82; RESP 15; O2SAT 96
[2021-01-14 09:40] VITALS: BP 85/50; PULSE 80; RESP 16; RESP 17; TEMP 36.5; O2SAT 94
[2021-01-14 09:47] VITALS: BP 125/57; PULSE 81; RESP 18; TEMP 36.3; O2SAT 95
[2021-01-14 10:04] VITALS: BP 155/47; PULSE 76; RESP 18; TEMP 36.3; O2SAT 96
--- NOTE | 2021-01-14 12:27 | ANE.PACU2 ---
Inpatient post-anesthesia follow up: Airway intact: Yes Vital signs: Temperature 97.4 F Pulse Rate 76 Respiratory Rate 18 Blood Pressure 155/47 Pulse Oximetry 96 Oxygen Delivery Me thod Room Air Oxygen Flow Rate 8 Fraction of Inspir ed Oxygen Hydration adequate: Yes Nausea and vomiting: No Pain level: 2 Mental status: Baseline
== END 2021-01-14 11:00 | disposition home or self-care (01) ==
PROVIDERS: PCP Family Medicine; Visit Provider Surgery
PROC: (CPT 11043; principal; 2021-01-14 08:15)
DX: L89.153 Pressure ulcer of sacral region, stage 3 (principal); Z86.718 Personal history of other venous thrombosis and embolism
CPT/HCPCS: 11043; 15271; 87070; 87075; 87077; 87186; 87205; 88307; J2250; J2405; J2704; J3010; J3490; J7030; Q4100

== ENCOUNTER → 2021-01-17 10:51 | Outpatient (BNVA) | payer MEDICARE, MEDICAID, SELFPAY | PROVIDERS: PCP Family Medicine; Visit Provider Specialist | DX: G82.20 Paraplegia, unspecified (principal); Z96.89 Presence of other specified functional implants | CPT/HCPCS: 62370; 99213 ==

== ENCOUNTER 2021-01-18 15:03 | Outpatient (CLI) | payer MEDICARE, MEDICAID, SELFPAY | END 2021-01-18 15:04 | disposition home or self-care (01) | LOC: WOUND 15:05 | PROVIDERS: PCP Family Medicine; Visit Provider Surgery | DX: I96 Gangrene, not elsewhere classified (principal); L89.153 Pressure ulcer of sacral region, stage 3; L89.893 Pressure ulcer of other site, stage 3 | CPT/HCPCS: 11043 ==

== ENCOUNTER 2021-01-28 09:30 | Outpatient (CLI) | payer MEDICARE, MEDICAID, SELFPAY ==
--- NOTE | 2021-01-28 09:56 | US_ITS ---
WS: [id number] RENAL ULTRASOUND HISTORY: NEUROGENIC BLADDER COMPARISON: 06/29/2013 TECHNIQUE: 2-D and color Doppler imaging of the kidney submitted. Right kidney: 11.1 cm x 5.1 cm x 4.6 cm. Normal echogenicity with no hydronephrosis or mass. Left kidney: 10.4 cm x 4.9 cm x 5.1 cm. Normal echogenicity with no hydronephrosis or mass. Aorta: Normal. Urinary Bladder: Nondistended urinary bladder. Matthews catheter is present. US/US renal BI* [id number] IMPRESSION: Normal renal ultrasound.
--- NOTE | 2021-01-28 10:15 | XR_ITS ---
WS: [id number] Exam: XR [id number] Date/Time of Exam: 01/28/2021 9:50 AM Reason For Exam: NEUROGENIC BLADDER No bowel obstruction or free air. Large amount retained stool in the colon. A neurostimulator pack zuleta perimposes the right pelvis with the lead extending into the region of the L4 vertebra. An IVC filter is in place. Chronic bilateral hip dislocations noted with marked deformity and resorption of the pr oximal femurs. A straight catheter noted in the region of the urinary bladder. A circular rim calcifi cation superimposes the right abdomen that probably represents the patient's known cholelithiasis. A renal stone is not completely excluded. XR/XR KUB [id number] IMPRESSION: 1. No acute abdominal process. 2. Constipation. 3. 2.1 cm circular rim calcification superimposes the right kidney. Renal lithi asis not totally excluded but this probably represents the patient's known chol elithiasis. 4. Additional chronic findings as detailed above.
== END 2021-01-28 09:31 | disposition home or self-care (01) ==
LOC: US 09:34
PROVIDERS: PCP Family Medicine; Visit Provider Urology
DX: N31.9 Neuromuscular dysfunction of bladder, unspecified (principal); K59.00 Constipation, unspecified; N28.89 Other specified disorders of kidney and ureter
CPT/HCPCS: 74018; 76770

== ENCOUNTER 2021-02-01 13:42 | Outpatient (CLI) | payer MEDICARE, MEDICAID, SELFPAY | END 2021-02-01 13:43 | disposition home or self-care (01) | LOC: WOUND 13:46 | PROVIDERS: PCP Family Medicine; Visit Provider Surgery | DX: L89.153 Pressure ulcer of sacral region, stage 3 (principal); L89.893 Pressure ulcer of other site, stage 3 | CPT/HCPCS: 11042; 11043 ==

== ENCOUNTER → 2021-02-07 10:54 | Outpatient (BNVA) | payer MEDICARE, MEDICAID, SELFPAY | PROVIDERS: PCP Family Medicine; Visit Provider Specialist | DX: G82.20 Paraplegia, unspecified (principal); Z96.89 Presence of other specified functional implants; Z89.511 Acquired absence of right leg below knee | CPT/HCPCS: 62370; 99213 ==

== ENCOUNTER 2021-02-15 13:14 | Outpatient (CLI) | payer MEDICARE, MEDICAID, SELFPAY | END 2021-02-15 13:15 | disposition home or self-care (01) | LOC: WOUND 13:19 | PROVIDERS: PCP Family Medicine; Visit Provider Surgery | DX: I96 Gangrene, not elsewhere classified (principal); L89.153 Pressure ulcer of sacral region, stage 3; L89.893 Pressure ulcer of other site, stage 3 | CPT/HCPCS: 11043 ==

== ENCOUNTER 2021-02-22 13:21 | Outpatient (CLI) | payer MEDICARE, MEDICAID, SELFPAY | END 2021-02-22 13:22 | disposition home or self-care (01) | LOC: WOUND 13:24 | PROVIDERS: PCP Family Medicine; Visit Provider Surgery | DX: I96 Gangrene, not elsewhere classified (principal); L89.153 Pressure ulcer of sacral region, stage 3; L89.893 Pressure ulcer of other site, stage 3 | CPT/HCPCS: 11042; 11043 ==

== ENCOUNTER → 2021-03-13 12:02 | Outpatient (BNVA) | payer MEDICARE, MEDICAID, SELFPAY | PROVIDERS: PCP Family Medicine; Visit Provider Specialist | DX: G82.20 Paraplegia, unspecified (principal); K59.09 Other constipation; G40.211 Localization-related (focal) (partial) symptomatic epilepsy and epileptic syndromes with complex partial seizures, intractable, with status epilepticus; Z96.89 Presence of other specified functional implants; Z89.612 Acquired absence of left leg above knee | CPT/HCPCS: 62370; 99214 ==

== ENCOUNTER 2021-03-15 11:08 | Outpatient (CLI) | payer MEDICARE, MEDICAID, SELFPAY | END 2021-03-15 11:09 | disposition home or self-care (01) | LOC: WOUND 11:10 | PROVIDERS: PCP Family Medicine; Visit Provider Surgery | DX: I96 Gangrene, not elsewhere classified (principal); L89.153 Pressure ulcer of sacral region, stage 3; L89.893 Pressure ulcer of other site, stage 3 | CPT/HCPCS: 11042; 11043 ==

== ENCOUNTER → 2021-03-21 12:40 | Outpatient (BNVA) | payer MEDICARE, MEDICAID, SELFPAY | PROVIDERS: PCP Family Medicine; Visit Provider Specialist | DX: R50.9 Fever, unspecified (principal) | CPT/HCPCS: 80048; 85025; 85651; 86140 ==

== ENCOUNTER 2021-03-29 11:03 | Outpatient (CLI) | payer MEDICARE, MEDICAID, SELFPAY | END 2021-03-29 11:04 | disposition home or self-care (01) | LOC: WOUND 11:06 | PROVIDERS: PCP Family Medicine; Visit Provider Thoracic Surgery (Cardiothoracic Vascular Surgery) | DX: I96 Gangrene, not elsewhere classified (principal); L89.153 Pressure ulcer of sacral region, stage 3; L89.893 Pressure ulcer of other site, stage 3 | CPT/HCPCS: 11042 ==

== ENCOUNTER 2021-04-12 11:00 | Outpatient (CLI) | payer MEDICARE, MEDICAID, SELFPAY | END 2021-04-12 11:01 | disposition home or self-care (01) | LOC: WOUND 11:02 | PROVIDERS: PCP Family Medicine; Visit Provider Surgery | DX: I96 Gangrene, not elsewhere classified (principal); L89.893 Pressure ulcer of other site, stage 3 | CPT/HCPCS: 11042 ==

== ENCOUNTER → 2021-04-16 10:36 | Outpatient (BNVA) | payer MEDICARE, MEDICAID, SELFPAY | PROVIDERS: PCP Family Medicine; Visit Provider Specialist | DX: G82.20 Paraplegia, unspecified (principal); S14.106S Unspecified injury at C6 level of cervical spinal cord, sequela; V89.2XXS Person injured in unspecified motor-vehicle accident, traffic, sequela; Z96.89 Presence of other specified functional implants | CPT/HCPCS: 62370; 99213 ==

== ENCOUNTER 2021-05-03 11:04 | Outpatient (CLI) | payer MEDICARE, MEDICAID, SELFPAY | END 2021-05-03 11:05 | disposition home or self-care (01) | LOC: WOUND 11:11 | PROVIDERS: PCP Family Medicine; Visit Provider Surgery | DX: I96 Gangrene, not elsewhere classified (principal); L89.893 Pressure ulcer of other site, stage 3 | CPT/HCPCS: 11043 ==

== ENCOUNTER → 2021-05-22 13:33 | Outpatient (BNVA) | payer MEDICARE, MEDICAID, SELFPAY | PROVIDERS: PCP Family Medicine; Visit Provider Specialist | DX: G82.50 Quadriplegia, unspecified (principal); Z96.89 Presence of other specified functional implants | CPT/HCPCS: 62370; 99214 ==

== ENCOUNTER 2021-05-25 22:17 | Emergency (ER) | payer MEDICARE, MEDICAID, SELFPAY ==
[2021-05-25 22:39] VITALS: BP 126/60; PULSE 61; RESP 16; TEMP 36.6; O2SAT 96; BMI 26.4
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
[2021-05-25] MEDS: CELEcoxib 200 mg Capsule 400 MG PO (22:53)
[2021-05-25] MEDS: clindamycin 150 mg Capsule 300 MG PO (22:53)
== END 2021-05-25 22:56 | disposition home or self-care (01) ==
PROVIDERS: Emergency Provider Nurse Practitioner Family; PCP Family Medicine
DX: K02.9 Dental caries, unspecified (principal)
CPT/HCPCS: 99283

== ENCOUNTER 2021-05-31 10:14 | Outpatient (CLI) | payer MEDICARE, MEDICAID, SELFPAY | END 2021-05-31 10:15 | disposition home or self-care (01) | LOC: WOUND 10:16 | PROVIDERS: PCP Family Medicine; Visit Provider Surgery | DX: I96 Gangrene, not elsewhere classified (principal); L89.893 Pressure ulcer of other site, stage 3 | CPT/HCPCS: 11043 ==

== ENCOUNTER 2021-06-07 09:40 | Outpatient (CLI) | payer MEDICARE, MEDICAID, SELFPAY | END 2021-06-07 09:41 | disposition home or self-care (01) | LOC: WOUND 09:42 | PROVIDERS: PCP Family Medicine; Visit Provider Surgery | DX: L89.893 Pressure ulcer of other site, stage 3 (principal) | CPT/HCPCS: 11042 ==

== ENCOUNTER 2021-06-14 09:56 | Outpatient (CLI) | payer MEDICARE, MEDICAID, SELFPAY | END 2021-06-14 09:57 | disposition home or self-care (01) | LOC: WOUND 09:57 | PROVIDERS: PCP Family Medicine; Visit Provider Surgery | DX: I96 Gangrene, not elsewhere classified (principal); L89.893 Pressure ulcer of other site, stage 3 | CPT/HCPCS: 15271; C1849 ==

== ENCOUNTER → 2021-06-27 08:52 | Outpatient (BNVA) | payer MEDICARE, MEDICAID, SELFPAY | PROVIDERS: PCP Family Medicine; Visit Provider Specialist | DX: G82.50 Quadriplegia, unspecified (principal); S14.106S Unspecified injury at C6 level of cervical spinal cord, sequela; Y93.9 Activity, unspecified; Z89.612 Acquired absence of left leg above knee; Z96.89 Presence of other specified functional implants | CPT/HCPCS: 62370; 99213 ==

== ENCOUNTER 2021-06-28 09:38 | Outpatient (CLI) | payer MEDICARE, MEDICAID, SELFPAY | END 2021-06-28 09:39 | disposition home or self-care (01) | LOC: WOUND 09:39 | PROVIDERS: PCP Family Medicine; Visit Provider Surgery | DX: I96 Gangrene, not elsewhere classified (principal); L89.893 Pressure ulcer of other site, stage 3 | CPT/HCPCS: 11043 ==

== ENCOUNTER 2021-07-05 10:48 | Outpatient (CLI) | payer MEDICARE, MEDICAID, SELFPAY | END 2021-07-05 10:49 | disposition home or self-care (01) | LOC: WOUND 10:49 | PROVIDERS: PCP Family Medicine; Visit Provider Surgery | DX: L89.893 Pressure ulcer of other site, stage 3 (principal) | CPT/HCPCS: 11043 ==

== ENCOUNTER → 2021-07-18 12:29 | Outpatient (BNVA) | payer MEDICARE, MEDICAID, SELFPAY | PROVIDERS: PCP Family Medicine; Visit Provider Specialist | DX: G82.20 Paraplegia, unspecified (principal); S14.106S Unspecified injury at C6 level of cervical spinal cord, sequela; Y93.9 Activity, unspecified; Z96.89 Presence of other specified functional implants | CPT/HCPCS: 62370; 99213 ==

== ENCOUNTER 2021-07-19 09:30 | Outpatient (CLI) | payer MEDICARE, MEDICAID, SELFPAY | END 2021-07-19 09:31 | disposition home or self-care (01) | LOC: WOUND 09:31 | PROVIDERS: PCP Family Medicine; Visit Provider Surgery | DX: L89.893 Pressure ulcer of other site, stage 3 (principal) | CPT/HCPCS: 11042 ==

== ENCOUNTER 2021-07-26 10:36 | Outpatient (CLI) | payer MEDICARE, MEDICAID, SELFPAY | END 2021-07-26 10:37 | disposition home or self-care (01) | LOC: WOUND 10:37 | PROVIDERS: PCP Family Medicine; Visit Provider Surgery | DX: L89.893 Pressure ulcer of other site, stage 3 (principal) | CPT/HCPCS: 11043; 97605; A6237 ==

== ENCOUNTER 2021-07-30 15:13 | Outpatient (CLI) | payer MEDICARE, MEDICAID, SELFPAY | END 2021-07-30 15:14 | disposition home or self-care (01) | LOC: WOUND 15:14 | PROVIDERS: PCP Family Medicine; Visit Provider Nurse Practitioner Family | DX: L89.893 Pressure ulcer of other site, stage 3 (principal) | CPT/HCPCS: 97605 ==

== ENCOUNTER 2021-08-02 10:39 | Outpatient (CLI) | payer MEDICARE, MEDICAID, SELFPAY | END 2021-08-02 10:40 | disposition home or self-care (01) | LOC: WOUND 10:41 | PROVIDERS: PCP Family Medicine; Visit Provider Surgery | DX: I96 Gangrene, not elsewhere classified (principal); L89.893 Pressure ulcer of other site, stage 3 | CPT/HCPCS: 11043 ==

== ENCOUNTER 2021-08-16 09:46 | Outpatient (CLI) | payer MEDICARE, MEDICAID, SELFPAY | END 2021-08-16 09:47 | disposition home or self-care (01) | LOC: WOUND 09:49 | PROVIDERS: PCP Family Medicine; Visit Provider Surgery | DX: I96 Gangrene, not elsewhere classified (principal); L89.893 Pressure ulcer of other site, stage 3 | CPT/HCPCS: 11042 ==

== ENCOUNTER → 2021-08-22 10:03 | Outpatient (BNVA) | payer MEDICARE, MEDICAID, SELFPAY | PROVIDERS: PCP Family Medicine; Visit Provider Specialist | DX: G82.21 Paraplegia, complete (principal); G40.109 Localization-related (focal) (partial) symptomatic epilepsy and epileptic syndromes with simple partial seizures, not intractable, without status epilepticus; L89.329 Pressure ulcer of left buttock, unspecified stage; T14.8XXS Other injury of unspecified body region, sequela; Y93.9 Activity, unspecified; Z96.89 Presence of other specified functional implants | CPT/HCPCS: 62370; 99213 ==

== ENCOUNTER 2021-08-30 08:19 | Outpatient (CLI) | payer MEDICARE, MEDICAID, SELFPAY | END 2021-08-30 08:20 | disposition home or self-care (01) | LOC: WOUND 08:22 | PROVIDERS: PCP Family Medicine; Visit Provider Surgery | DX: I96 Gangrene, not elsewhere classified (principal); L89.893 Pressure ulcer of other site, stage 3 | CPT/HCPCS: 11043 ==

== ENCOUNTER 2021-09-06 09:26 | Outpatient (CLI) | payer MEDICARE, MEDICAID, SELFPAY | END 2021-09-06 09:27 | disposition home or self-care (01) | LOC: WOUND 09:27 | PROVIDERS: PCP Family Medicine; Visit Provider Surgery | DX: I96 Gangrene, not elsewhere classified (principal); L89.893 Pressure ulcer of other site, stage 3 | CPT/HCPCS: 11042 ==

== ENCOUNTER 2021-09-13 10:38 | Outpatient (CLI) | payer MEDICARE, MEDICAID, SELFPAY | END 2021-09-13 10:39 | disposition home or self-care (01) | LOC: WOUND 10:39 | PROVIDERS: PCP Family Medicine; Visit Provider Surgery | DX: T81.89XA Other complications of procedures, not elsewhere classified, initial encounter (principal); Z11.52 Encounter for screening for COVID-19; Y83.8 Other surgical procedures as the cause of abnormal reaction of the patient, or of later complication, without mention of misadventure at the time of the procedure | CPT/HCPCS: 11043; 87635 ==

== ENCOUNTER 2021-09-17 09:50 | Day surgery (SDC) | payer MEDICARE, MEDICAID, SELFPAY ==
[2021-09-16 13:15] VITALS: BMI 25.7
[2021-09-17] VITALS (9 sets, daily range): BP systolic 63–138; BP diastolic 37–82; PULSE 56–78; RESP 18–64; TEMP 36.4–37.2; O2SAT 94–98
[2021-09-17] MEDS: sodium chloride 0.9% 1,000 ML 30 ML IV (10:45)
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
--- NOTE | 2021-09-17 11:16 | W.PM.OPSUD ---
Surgery/Procedure H&P Update DATE OF PROCEDURE: September 17, 2021 DATE H&P PERFORMED: 09/13/21 H&P UPDATE INFORMATION: I have reviewed H&P completed within last 30 days, I have examined patient prior to procedure and No changes to prior documentation PREOP DIAGNOSIS: Left groin wound PRIMARY INDICATION FOR PROCEDURE: The same PLANNED PROCEDURE: Operation Date: 09/17/21 11:35 Proposed Procedures p Debridement Left Groin 34412 L89.893 Pt has transportation scheduled to arrive at 10:00(Left) - Rudy May MD
[2021-09-17] MEDS: clindamycin 900 MG/50 ML PREMIX 100 MG IV (11:46)
[2021-09-17] MEDS: lidocaine 2% INJ 20 mL INJECTION (12:30)
--- NOTE | 2021-09-17 12:41 | P.OP_ITS ---
Operative Report Date of procedure: September 17, 2021 Pre-op Diagnosis: Left groin wound Post-op diagnosis: same Post-op Findings: Predebridement measurements 4 x 2.7 x 2.3 cm Post debridement measurements the same with 1 inch and a half lateral undermining Procedure Done: 1-Debridement of left groin wound 2-Application of xenograft micromatrix and Cytal(skin substitute) Implants: Application of micromatrix and Cytal(skin substitute) Surgeon: Rudy May Tar Leveler: process controls technician Aiyana Circulating nurse Maria A Anesthesia: MAC (supervisor slitting and shipping John Linton) Estimated blood loss (mL): 5 Condition: stable Disposition: same day Procedure: After identifying the patient holding area, the left groin was marked by me.,patient was then taken to the operative suite,was placed in supine position, all pressure points were padded and patient was appropriately secured to the bed., IV antibiotics were given per protocol,IV propofol was infused by the anesthesia provider, prep and drape of the periwound region over the left groin was done under the usual sterile technique. Time-out was done verifying the patient's name/date of /planned procedure and destination after the procedure, all were in agreement. Started by excising and debriding sharply the wound bed. Small undermining was noticed at left lateral component of the wound about inch and a half in depth. Sharp debridement was done all the way to the muscle layer. Predebridement measurements 4 x 2.7 x 2.3 cm Post debridement measurements the same with 1 inch and a half lateral undermining all the way to the muscle Copious and extensive irrigation of the wound was done using a liter of warm saline using Pulsavac, followed by appropriate hemostasis using Bovie cauterization. At the back table preparation of the wound matrix 3 layer sheet by immersing it in saline for few minutes and also the micromatrix powder was mixed with a total of 8 mL of saline to create a dough like structure. The Wound matrix 3 layer 10 x 15 cm sheet and a total of 2 g of micromatrix powder already mixed informed like a dough Placed like pursestring using 3-0 Vicryl and the Dough content of the micro matrix was placed within the pursestring. Subsequently that was placed in the depth of the wound and interrupted 3-0 Vicryl was used to secure it to the edges of the wound following that more micromatrix was installed on top of the previous packing, a piece of Adaptic was placed onto that structure and was stitched at different corners using 3-0 Vicryl followed by gel and dry 4 x 4 then foam tape and surgical pants. Patient tolerated the procedure well, count of instruments, needles and sponges were completed at the end of the procedure. Patient was then taken to the recovery area in stable condition. I was present for the whole entire procedure
--- NOTE | 2021-09-17 13:09 | SUR.PHASEI ---
pt awake alert talkative iv is #22 in rt finger, pressure bag to iv to keep at mod rate BP HOLDING AT 110 SYSTOLIC HOB WAS FLAT NOW UP TO 20 DEGREES. VSS STABLE WILL GIVE REPORT TO OPS.
[2021-09-17] MEDS: HYDROcodone-acetaminophen 5-325 mg Tablet 1 TAB PO (14:30)
--- NOTE | 2021-09-17 16:46 | ANE.PACU2 ---
Inpatient post-anesthesia follow up: Airway intact: Yes Vital signs: Temperature 98.7 F Pulse Rate 58 Respiratory Rate 18 Blood Pressure 124/72 Pulse Oximetry 98 Oxygen Delivery Me thod Room Air Oxygen Flow Rate Fraction of Inspir ed Oxygen Hydration adequate: Yes Nausea and vomiting: No Pain level: 2 Mental status: Baseline
== END 2021-09-17 14:50 | disposition home or self-care (01) ==
PROVIDERS: PCP Family Medicine; Visit Provider Surgery
PROC: (CPT 11043; principal; 2021-09-17 11:35)
DX: S31.104A Unspecified open wound of abdominal wall, left lower quadrant without penetration into peritoneal cavity, initial encounter (principal); L89.893 Pressure ulcer of other site, stage 3; G82.50 Quadriplegia, unspecified; Z88.0 Allergy status to penicillin; Z86.2 Personal history of diseases of the blood and blood-forming organs and certain disorders involving the immune mechanism; Z87.828 Personal history of other (healed) physical injury and trauma
CPT/HCPCS: 11043; C1762; J2250; J2704; J3010; J3490; J7030; Q4118

== ENCOUNTER 2021-09-20 13:58 | Outpatient (CLI) | payer MEDICARE, MEDICAID, SELFPAY | END 2021-09-20 13:59 | disposition home or self-care (01) | LOC: WOUND 14:00 | PROVIDERS: PCP Family Medicine; Visit Provider Surgery | DX: I96 Gangrene, not elsewhere classified (principal); L89.893 Pressure ulcer of other site, stage 3 | CPT/HCPCS: 11043 ==

== ENCOUNTER → 2021-09-26 09:57 | Outpatient (BNVA) | payer MEDICARE, MEDICAID, SELFPAY | PROVIDERS: PCP Family Medicine; Visit Provider Specialist | DX: G82.21 Paraplegia, complete (principal); G40.109 Localization-related (focal) (partial) symptomatic epilepsy and epileptic syndromes with simple partial seizures, not intractable, without status epilepticus; Z96.89 Presence of other specified functional implants | CPT/HCPCS: 62370; 99213 ==

== ENCOUNTER 2021-09-27 13:30 | Outpatient (CLI) | payer MEDICARE, MEDICAID, SELFPAY | END 2021-09-27 13:31 | disposition home or self-care (01) | LOC: WOUND 13:31 | PROVIDERS: PCP Family Medicine; Visit Provider Surgery | DX: T81.89XA Other complications of procedures, not elsewhere classified, initial encounter (principal); Y83.8 Other surgical procedures as the cause of abnormal reaction of the patient, or of later complication, without mention of misadventure at the time of the procedure | CPT/HCPCS: 15271; Q4137 ==

== ENCOUNTER 2021-10-11 11:10 | Outpatient (CLI) | payer MEDICARE, MEDICAID, SELFPAY | END 2021-10-11 11:11 | disposition home or self-care (01) | LOC: WOUND 11:11 | PROVIDERS: PCP Family Medicine; Visit Provider Surgery | DX: L89.893 Pressure ulcer of other site, stage 3 (principal) | CPT/HCPCS: 11042 ==

== ENCOUNTER 2021-10-18 13:05 | Outpatient (CLI) | payer MEDICARE, MEDICAID, SELFPAY | END 2021-10-18 13:06 | disposition home or self-care (01) | LOC: WOUND 13:07 | PROVIDERS: PCP Family Medicine; Visit Provider Surgery | DX: L89.893 Pressure ulcer of other site, stage 3 (principal) | CPT/HCPCS: 15271; Q4137 ==

== ENCOUNTER → 2021-10-24 08:38 | Outpatient (BNVA) | payer MEDICARE, MEDICAID, SELFPAY | PROVIDERS: PCP Family Medicine; Visit Provider Specialist | DX: G82.21 Paraplegia, complete (principal); Z96.89 Presence of other specified functional implants | CPT/HCPCS: 62370; 99212 ==

== ENCOUNTER 2021-10-25 10:35 | Outpatient (CLI) | payer MEDICARE, MEDICAID, SELFPAY | END 2021-10-25 10:36 | disposition home or self-care (01) | LOC: WOUND 10:37 | PROVIDERS: PCP Family Medicine; Visit Provider Surgery | DX: L89.893 Pressure ulcer of other site, stage 3 (principal) | CPT/HCPCS: 15271; Q4137 ==

== ENCOUNTER 2021-10-31 08:45 | Outpatient (CLI) | payer MEDICARE, MEDICAID, SELFPAY | END 2021-10-31 08:46 | disposition home or self-care (01) | LOC: WOUND 08:46 | PROVIDERS: PCP Family Medicine; Visit Provider Nurse Practitioner Family | DX: L89.893 Pressure ulcer of other site, stage 3 (principal) | CPT/HCPCS: 15275; Q4137 ==

== ENCOUNTER 2021-11-15 13:06 | Outpatient (CLI) | payer MEDICARE, MEDICAID, SELFPAY | END 2021-11-15 13:07 | disposition home or self-care (01) | PROVIDERS: PCP Family Medicine; Visit Provider Surgery | DX: L89.893 Pressure ulcer of other site, stage 3 (principal) | CPT/HCPCS: 11042 ==

== ENCOUNTER → 2021-11-21 11:00 | Outpatient (BNVA) | payer MEDICARE, MEDICAID, SELFPAY | PROVIDERS: PCP Family Medicine; Visit Provider Specialist | DX: G82.20 Paraplegia, unspecified (principal); Z96.89 Presence of other specified functional implants | CPT/HCPCS: 62370; 99213 ==

== ENCOUNTER 2021-11-29 13:16 | Outpatient (CLI) | payer MEDICARE, MEDICAID, SELFPAY | END 2021-11-29 13:17 | disposition home or self-care (01) | LOC: WOUND 13:19 | PROVIDERS: PCP Family Medicine; Visit Provider Surgery | DX: L89.893 Pressure ulcer of other site, stage 3 (principal) | CPT/HCPCS: 15271; Q4137 ==

== ENCOUNTER 2021-12-06 13:25 | Outpatient (CLI) | payer MEDICARE, MEDICAID, SELFPAY | END 2021-12-06 13:26 | disposition home or self-care (01) | LOC: WOUND 13:26 | PROVIDERS: PCP Family Medicine; Visit Provider Surgery | DX: L89.893 Pressure ulcer of other site, stage 3 (principal) | CPT/HCPCS: 11043 ==

== ENCOUNTER → 2021-12-23 09:47 | Outpatient (BNVA) | payer MEDICARE, MEDICAID, SELFPAY | PROVIDERS: PCP Family Medicine; Visit Provider Specialist | DX: G82.21 Paraplegia, complete (principal); Z89.612 Acquired absence of left leg above knee; Z96.89 Presence of other specified functional implants; S14.106S Unspecified injury at C6 level of cervical spinal cord, sequela; V89.2XXS Person injured in unspecified motor-vehicle accident, traffic, sequela | CPT/HCPCS: 62370; 99213 ==

== ENCOUNTER 2021-12-27 13:08 | Outpatient (CLI) | payer MEDICARE, MEDICAID, SELFPAY | END 2021-12-27 13:09 | disposition home or self-care (01) | LOC: WOUND 13:11 | PROVIDERS: PCP Family Medicine; Visit Provider Surgery | DX: T81.89XA Other complications of procedures, not elsewhere classified, initial encounter (principal); L89.893 Pressure ulcer of other site, stage 3 | CPT/HCPCS: 15271; A6250; Q4137 ==

== ENCOUNTER 2022-01-10 13:38 | Outpatient (CLI) | payer MEDICARE, MEDICAID, SELFPAY | END 2022-01-10 13:39 | disposition home or self-care (01) | LOC: WOUND 13:39 | PROVIDERS: PCP Family Medicine; Visit Provider Nurse Practitioner Family | DX: L89.153 Pressure ulcer of sacral region, stage 3 (principal) | CPT/HCPCS: 11042 ==

== ENCOUNTER 2022-01-24 14:04 | Outpatient (CLI) | payer MEDICARE, MEDICAID, SELFPAY | END 2022-01-24 14:05 | disposition home or self-care (01) | LOC: WOUND 14:05 | PROVIDERS: PCP Family Medicine; Visit Provider Surgery | DX: L89.893 Pressure ulcer of other site, stage 3 (principal) | CPT/HCPCS: 15271; A6219; Q4137 ==

== ENCOUNTER → 2022-01-27 08:00 | Outpatient (BNVA) | payer MEDICARE, MEDICAID, SELFPAY | PROVIDERS: PCP Family Medicine; Visit Provider Specialist | DX: G82.21 Paraplegia, complete (principal); S14.106S Unspecified injury at C6 level of cervical spinal cord, sequela; V89.2XXS Person injured in unspecified motor-vehicle accident, traffic, sequela; Z96.89 Presence of other specified functional implants; Z89.612 Acquired absence of left leg above knee; G40.109 Localization-related (focal) (partial) symptomatic epilepsy and epileptic syndromes with simple partial seizures, not intractable, without status epilepticus; G40.409 Other generalized epilepsy and epileptic syndromes, not intractable, without status epilepticus | CPT/HCPCS: 62370; 99212 ==

== ENCOUNTER → 2022-02-07 09:07 | Outpatient (BNVA) | payer MEDICARE, MEDICAID, SELFPAY | PROVIDERS: PCP Family Medicine; Visit Provider Surgery | DX: L89.153 Pressure ulcer of sacral region, stage 3 (principal); I96 Gangrene, not elsewhere classified | CPT/HCPCS: 15271; Q4137 ==

== ENCOUNTER → 2022-02-14 13:21 | Outpatient (BNVA) | payer MEDICARE, MEDICAID, SELFPAY | PROVIDERS: PCP Family Medicine; Visit Provider Surgery | DX: I96 Gangrene, not elsewhere classified (principal); L89.893 Pressure ulcer of other site, stage 3 | CPT/HCPCS: 15271; A6207; Q4137 ==

== ENCOUNTER → 2022-02-20 09:41 | Outpatient (BNVA) | payer MEDICARE, MEDICAID, SELFPAY | PROVIDERS: PCP Family Medicine; Referring Provider Specialist; Visit Provider Physician Assistant | DX: M70.31 Other bursitis of elbow, right elbow (principal) | CPT/HCPCS: 73080; 99203; 99999 ==

== ENCOUNTER → 2022-02-21 13:35 | Outpatient (BNVA) | payer MEDICARE, MEDICAID, SELFPAY | PROVIDERS: PCP Family Medicine; Visit Provider Emergency Medicine | DX: I96 Gangrene, not elsewhere classified (principal); L89.893 Pressure ulcer of other site, stage 3 | CPT/HCPCS: 15271; A6250; Q4137 ==

== ENCOUNTER → 2022-02-28 10:23 | Outpatient (BNVA) | payer MEDICARE, MEDICAID, SELFPAY | PROVIDERS: PCP Family Medicine; Visit Provider Surgery | DX: I96 Gangrene, not elsewhere classified (principal); L89.893 Pressure ulcer of other site, stage 3 | CPT/HCPCS: 15271; A6207; Q4137 ==

== ENCOUNTER → 2022-03-03 08:47 | Outpatient (BNVA) | payer MEDICARE, MEDICAID, SELFPAY | PROVIDERS: PCP Family Medicine; Referring Provider Specialist; Visit Provider Specialist | DX: G82.21 Paraplegia, complete (principal); Z96.89 Presence of other specified functional implants; G40.109 Localization-related (focal) (partial) symptomatic epilepsy and epileptic syndromes with simple partial seizures, not intractable, without status epilepticus; G40.409 Other generalized epilepsy and epileptic syndromes, not intractable, without status epilepticus; S14.106S Unspecified injury at C6 level of cervical spinal cord, sequela; V89.2XXS Person injured in unspecified motor-vehicle accident, traffic, sequela; M70.31 Other bursitis of elbow, right elbow; Z89.612 Acquired absence of left leg above knee; E46 Unspecified protein-calorie malnutrition | CPT/HCPCS: 36415; 62370; 80053; 82728; 83540; 83550; 84443; 85025; 99213; 99214 ==

== ENCOUNTER → 2022-03-05 11:36 | Outpatient (BNVA) | payer MEDICARE, MEDICAID, SELFPAY | PROVIDERS: PCP Family Medicine; Visit Provider Family Medicine | DX: N39.0 Urinary tract infection, site not specified (principal) | CPT/HCPCS: 81003; 87077; 87086; 87184 ==

== ENCOUNTER 2022-03-09 | Outpatient (RCR) | payer MEDICARE, MEDICAID, SELFPAY | END 2022-04-08 23:59 | disposition home or self-care (01) | LOC: TPT | PROVIDERS: PCP Family Medicine; Referring Provider Specialist; Visit Provider Specialist | DX: G82.50 Quadriplegia, unspecified (principal); Z89.612 Acquired absence of left leg above knee | CPT/HCPCS: 97110; 97140; 97163 ==

== ENCOUNTER → 2022-03-14 10:10 | Outpatient (BNVA) | payer MEDICARE, MEDICAID, SELFPAY | PROVIDERS: PCP Family Medicine; Visit Provider Surgery | DX: L89.893 Pressure ulcer of other site, stage 3 (principal); I96 Gangrene, not elsewhere classified | CPT/HCPCS: 15271; A6206; Q4137 ==

== ENCOUNTER → 2022-03-28 10:32 | Outpatient (BNVA) | payer MEDICARE, MEDICAID, SELFPAY | PROVIDERS: PCP Family Medicine; Visit Provider Surgery | DX: I96 Gangrene, not elsewhere classified (principal); L89.893 Pressure ulcer of other site, stage 3 | CPT/HCPCS: 15271; Q4137 ==

== ENCOUNTER → 2022-04-03 10:17 | Outpatient (BNVA) | payer MEDICARE, MEDICAID, SELFPAY | PROVIDERS: PCP Family Medicine; Visit Provider Specialist | DX: G40.109 Localization-related (focal) (partial) symptomatic epilepsy and epileptic syndromes with simple partial seizures, not intractable, without status epilepticus (principal); G40.409 Other generalized epilepsy and epileptic syndromes, not intractable, without status epilepticus; G82.21 Paraplegia, complete; Z96.89 Presence of other specified functional implants; S14.106S Unspecified injury at C6 level of cervical spinal cord, sequela; V89.2XXS Person injured in unspecified motor-vehicle accident, traffic, sequela; Z89.612 Acquired absence of left leg above knee | CPT/HCPCS: 62370; 99213 ==

== ENCOUNTER 2022-04-09 06:00 | Outpatient (RCR) | payer MEDICARE, MEDICAID, SELFPAY | END 2022-05-08 23:59 | disposition home or self-care (01) | LOC: TPT 06:00 | PROVIDERS: PCP Family Medicine; Referring Provider Specialist; Visit Provider Specialist | DX: M25.661 Stiffness of right knee, not elsewhere classified (principal); R60.9 Edema, unspecified; M21.371 Foot drop, right foot | CPT/HCPCS: 97110; 97140 ==

== ENCOUNTER → 2022-04-11 09:30 | Outpatient (BNVA) | payer MEDICARE, MEDICAID, SELFPAY | PROVIDERS: PCP Family Medicine; Visit Provider Surgery | DX: I96 Gangrene, not elsewhere classified (principal); L89.153 Pressure ulcer of sacral region, stage 3 | CPT/HCPCS: 15271; A6207; Q4137 ==

== ENCOUNTER → 2022-04-25 09:43 | Outpatient (BNVA) | payer MEDICARE, MEDICAID, SELFPAY | PROVIDERS: PCP Family Medicine; Visit Provider Nurse Practitioner Family | DX: I96 Gangrene, not elsewhere classified (principal); L89.153 Pressure ulcer of sacral region, stage 3 | CPT/HCPCS: 11042 ==

== ENCOUNTER → 2022-05-01 09:31 | Outpatient (BNVA) | payer MEDICARE, MEDICAID, SELFPAY | PROVIDERS: PCP Family Medicine; Visit Provider Specialist | DX: G82.21 Paraplegia, complete (principal); Z96.89 Presence of other specified functional implants; S14.106S Unspecified injury at C6 level of cervical spinal cord, sequela; V89.2XXS Person injured in unspecified motor-vehicle accident, traffic, sequela; Z89.612 Acquired absence of left leg above knee | CPT/HCPCS: 62370; 99212 ==

== ENCOUNTER 2022-05-09 06:00 | Outpatient (RCR) | payer MEDICARE, MEDICAID, SELFPAY | END 2022-06-08 23:59 | disposition home or self-care (01) | LOC: TPT 06:00 | PROVIDERS: PCP Family Medicine; Referring Provider Specialist; Visit Provider Specialist | DX: I96 Gangrene, not elsewhere classified (principal); L89.153 Pressure ulcer of sacral region, stage 3; M25.661 Stiffness of right knee, not elsewhere classified; R60.9 Edema, unspecified; M21.371 Foot drop, right foot | CPT/HCPCS: 15271; 97110; 97140; 97164 ==

== ENCOUNTER → 2022-05-09 10:02 | Outpatient (BNVA) | payer MEDICARE, MEDICAID, SELFPAY | PROVIDERS: PCP Family Medicine; Visit Provider Surgery | DX: I96 Gangrene, not elsewhere classified (principal); L89.893 Pressure ulcer of other site, stage 3 | CPT/HCPCS: 15271; Q4137 ==

== ENCOUNTER → 2022-05-23 09:36 | Outpatient (BNVA) | payer MEDICARE, MEDICAID, SELFPAY | PROVIDERS: PCP Family Medicine; Visit Provider Surgery | DX: I96 Gangrene, not elsewhere classified (principal); L89.153 Pressure ulcer of sacral region, stage 3 | CPT/HCPCS: 15271; Q4137 ==

== ENCOUNTER → 2022-05-29 09:56 | Outpatient (BNVA) | payer MEDICARE, MEDICAID, SELFPAY | PROVIDERS: PCP Family Medicine; Visit Provider Specialist | DX: Z45.1 Encounter for adjustment and management of infusion pump (principal); G82.21 Paraplegia, complete; G40.109 Localization-related (focal) (partial) symptomatic epilepsy and epileptic syndromes with simple partial seizures, not intractable, without status epilepticus; S14.106S Unspecified injury at C6 level of cervical spinal cord, sequela; Z89.612 Acquired absence of left leg above knee | CPT/HCPCS: 62370; 99212 ==

== ENCOUNTER → 2022-06-06 09:38 | Outpatient (BNVA) | payer MEDICARE, MEDICAID, SELFPAY | PROVIDERS: PCP Family Medicine; Visit Provider Nurse Practitioner Family | DX: I96 Gangrene, not elsewhere classified (principal); L89.153 Pressure ulcer of sacral region, stage 3 | CPT/HCPCS: 15275; A6021; A6206; Q4137 ==

== ENCOUNTER 2022-06-09 06:00 | Outpatient (RCR) | payer MEDICARE, MEDICAID, SELFPAY | END 2022-07-09 23:59 | disposition home or self-care (01) | LOC: TPT 06:00 | PROVIDERS: PCP Family Medicine; Referring Provider Specialist; Visit Provider Specialist | DX: I96 Gangrene, not elsewhere classified (principal); L89.153 Pressure ulcer of sacral region, stage 3 | CPT/HCPCS: 97110; 97140 ==

== ENCOUNTER 2022-06-10 14:15 | Outpatient (CLI) | payer MEDICARE, MEDICAID, SELFPAY ==
--- NOTE | 2022-06-10 08:30 | XR_ITS ---
WS: [email or web address] KUB, AP view, 06/10/2022 Clinical Data: SUPRAPUBIC CATHETER Comparison: KUB, 01/28/2021. Findings: There is a small calcification overlying the right kidney which may represent cholelithiasis. No defi nite renal calcifications are seen. There is a neural stimulator generator overlying the right ilium with the lead entering the midportion of the L4 vertebral body. 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 There is a cathet er in the bladder. XR/XR KUB [id number] Impression: No change from previous KUB.
== END 2022-06-10 14:16 | disposition home or self-care (01) ==
LOC: RAD 14:17
PROVIDERS: PCP Family Medicine; Visit Provider Urology
DX: N31.9 Neuromuscular dysfunction of bladder, unspecified (principal); Z93.59 Other cystostomy status; N30.90 Cystitis, unspecified without hematuria
CPT/HCPCS: 74018; 81003; 87077; 87086; 87186; 99213

== ENCOUNTER 2022-06-10 14:16 | Outpatient (CLI) | payer MEDICARE, MEDICAID, SELFPAY ==
--- NOTE | 2022-06-10 15:00 | US_ITS ---
WS: [email or web address] RENAL ULTRASOUND HISTORY: SUPRAPUBIC CATHETER COMPARISON: 01/28/2021 TECHNIQUE: 2-D and color Doppler imaging of the kidney submitted. Right kidney: 11.0 cm x 5.4 cm x 4.0 cm. Normal echogenicity with no hydronephrosis or mass. Left kidney: 11.3 cm x 5.0 cm x 5.4 cm. Normal echogenicity with no hydronephrosis or mass. Aorta: Normal. Urinary Bladder: Nondistended bladder due to Matthews catheter. Suprapubic catheter. US/US renal BI* [id number] IMPRESSION: No renal mass or obstruction. No atrophy.
== END 2022-06-10 14:17 | disposition home or self-care (01) ==
LOC: RAD 14:17
PROVIDERS: PCP Family Medicine; Visit Provider Urology
DX: Z93.59 Other cystostomy status (principal); N31.9 Neuromuscular dysfunction of bladder, unspecified; N30.90 Cystitis, unspecified without hematuria
CPT/HCPCS: 74018; 76770; 81003; 87077; 87086; 87186; 99213

== ENCOUNTER → 2022-06-20 09:39 | Outpatient (BNVA) | payer MEDICARE, MEDICAID, SELFPAY | PROVIDERS: PCP Family Medicine; Visit Provider Nurse Practitioner Family | DX: L89.893 Pressure ulcer of other site, stage 3 (principal); I96 Gangrene, not elsewhere classified | CPT/HCPCS: 15275; A6206; A6250; Q4137 ==

== ENCOUNTER → 2022-06-23 12:27 | Outpatient (BNVA) | payer MEDICARE, MEDICAID, SELFPAY | PROVIDERS: PCP Family Medicine; Visit Provider Specialist | DX: G82.21 Paraplegia, complete (principal); Z45.1 Encounter for adjustment and management of infusion pump; Z96.89 Presence of other specified functional implants; G40.109 Localization-related (focal) (partial) symptomatic epilepsy and epileptic syndromes with simple partial seizures, not intractable, without status epilepticus; K59.09 Other constipation | CPT/HCPCS: 62370; 99212 ==

== ENCOUNTER → 2022-06-30 09:32 | Outpatient (BNVA) | payer MEDICARE, MEDICAID, SELFPAY | PROVIDERS: PCP Family Medicine; Visit Provider Nurse Practitioner Family | DX: R33.9 Retention of urine, unspecified (principal); N31.9 Neuromuscular dysfunction of bladder, unspecified; N30.90 Cystitis, unspecified without hematuria; K59.09 Other constipation | CPT/HCPCS: 81003; 99213 ==

== ENCOUNTER 2022-07-10 06:00 | Outpatient (RCR) | payer MEDICARE, MEDICAID, SELFPAY | END 2022-07-24 23:59 | disposition home or self-care (01) | LOC: TPT 06:00 | PROVIDERS: PCP Family Medicine; Referring Provider Specialist; Visit Provider Specialist | DX: I96 Gangrene, not elsewhere classified (principal); L89.153 Pressure ulcer of sacral region, stage 3 | CPT/HCPCS: 97110; 97140 ==

== ENCOUNTER → 2022-07-11 14:24 | Outpatient (BNVA) | payer MEDICARE, MEDICAID, SELFPAY | PROVIDERS: PCP Family Medicine; Visit Provider Surgery | DX: I96 Gangrene, not elsewhere classified (principal); L89.153 Pressure ulcer of sacral region, stage 3 | CPT/HCPCS: 15271; A6021; A6206; Q4205 ==

== ENCOUNTER → 2022-07-25 09:17 | Outpatient (BNVA) | payer MEDICARE, MEDICAID, SELFPAY | PROVIDERS: PCP Family Medicine; Visit Provider Nurse Practitioner Family | DX: I96 Gangrene, not elsewhere classified (principal); L89.153 Pressure ulcer of sacral region, stage 3 | CPT/HCPCS: 15275; A6206; Q4205 ==

== ENCOUNTER → 2022-07-29 08:06 | Outpatient (BNVA) | payer MEDICARE, MEDICAID, SELFPAY | PROVIDERS: PCP Family Medicine; Visit Provider Specialist | DX: G82.21 Paraplegia, complete (principal); G40.109 Localization-related (focal) (partial) symptomatic epilepsy and epileptic syndromes with simple partial seizures, not intractable, without status epilepticus; N31.9 Neuromuscular dysfunction of bladder, unspecified; Z45.1 Encounter for adjustment and management of infusion pump; Z96.89 Presence of other specified functional implants | CPT/HCPCS: 62370; 99212 ==

== ENCOUNTER → 2022-08-08 09:37 | Outpatient (BNVA) | payer MEDICARE, MEDICAID, SELFPAY | PROVIDERS: PCP Family Medicine; Visit Provider Surgery | DX: I96 Gangrene, not elsewhere classified (principal); L89.153 Pressure ulcer of sacral region, stage 3 | CPT/HCPCS: 15271; Q4205 ==

== ENCOUNTER → 2022-08-26 07:50 | Outpatient (BNVA) | payer MEDICARE, MEDICAID, SELFPAY | PROVIDERS: PCP Family Medicine; Visit Provider Specialist | DX: G82.21 Paraplegia, complete (principal); Z45.1 Encounter for adjustment and management of infusion pump; T85.615A Breakdown (mechanical) of other nervous system device, implant or graft, initial encounter; Z96.89 Presence of other specified functional implants; Z79.899 Other long term (current) drug therapy | CPT/HCPCS: 62370; 99214 ==

== ENCOUNTER → 2022-09-05 13:12 | Outpatient (BNVA) | payer MEDICARE, MEDICAID, SELFPAY | PROVIDERS: PCP Family Medicine; Visit Provider Surgery | DX: I96 Gangrene, not elsewhere classified (principal); L89.892 Pressure ulcer of other site, stage 2 | CPT/HCPCS: 11043; A6021 ==

== ENCOUNTER 2022-09-16 10:24 | Outpatient (CLI) | payer MEDICARE, MEDICAID, SELFPAY ==
--- NOTE | 2022-09-16 10:30 | CT_ITS ---
WS: [email or web address] CT LUMBAR SPINE TECHNIQUE: Noncontrast and Contrast-enhanced CT of the lumbar spine with coronal and sagittal reforma tted images. CLINICAL INFORMATION: Z97.8 - Presence of other specified devices COMPARISON: DLP: 2803.[address] scans at [facility] use at least one of these dose optimization techniques: automated e xposure control; mA and/or kV adjustment per patient size (includes targeted exams where dose is matc hed to clinical indication); or iterative reconstruction. FINDINGS: Mild lumbar curve. No acute compression. No acute compression fractures. IVC filter. Spinal stimulato r catheter fragment at the L3-L4 level in the dorsal interspinous soft tissues. This appears disconne cted from the epidural catheter. Catheter extends from the L4 disc space cephalad off the [id number]. This was previously connected in 2012 on the prior lumbar spine CT. L1-L2: Normal. L2-L3: Mild facet arthropathy. L3-L4: Slight retrolisthesis. Mild annular bulging. Spinal canal and foramen are patent. Moderate fac et arthropathy. L4-L5: Slight retrolisthesis. Mild annular bulging. Moderate facet arthropathy. Spinal canal and fora men are patent. L5-S1: Mild annular bulging with a shallow LEFT pericentral protrusion. Slight contact of the LEFT S1 nerve root. Mild bilateral foraminal narrowing LEFT greater than RIGHT. Moderate facet arthropathy. S1 is partially lumbarized. Partially visualized cholelithiasis. Visualized pelvic bony structures: Normal. Paravertebral soft tissues: Normal. CT/CT lumbar spine wo/w con [id number] IMPRESSION: 1. Spinal stimulator catheter fragment at the L3-L4 level in the dorsal inters pinous soft tissues. This appears disconnected from the epidural catheter. 2. Catheter extends from the L4 disc space cephalad off the [id number]. Yana ramos was previously connected in 2012 on the prior lumbar spine CT and also leyla suazo on the prior CT abdomen pelvis March 26, 2020
[2022-09-16] MEDS: iohexol 350 mg/mL 100 mL Btl IV (12:09)
== END 2022-09-16 10:25 | disposition home or self-care (01) ==
PROVIDERS: PCP Family Medicine; Visit Provider Specialist
DX: T85.610A Breakdown (mechanical) of cranial or spinal infusion catheter, initial encounter (principal); G40.109 Localization-related (focal) (partial) symptomatic epilepsy and epileptic syndromes with simple partial seizures, not intractable, without status epilepticus; G82.20 Paraplegia, unspecified; G82.50 Quadriplegia, unspecified; K59.09 Other constipation; Y83.8 Other surgical procedures as the cause of abnormal reaction of the patient, or of later complication, without mention of misadventure at the time of the procedure
CPT/HCPCS: 72133; Q9967

== ENCOUNTER 2022-09-30 15:48 | Outpatient (CLI) | payer MEDICARE, MEDICAID, SELFPAY ==
--- NOTE | 2022-09-30 16:00 | CT_ITS ---
WS: [email or web address] CT CERVICAL SPINE TECHNIQUE: Noncontrast and contrast-enhanced CT of the cervical spine with coronal and sagittal refor matted images. CLINICAL INFORMATION: Z97.8 - Presence of other specified devices COMPARISON: September 28, 2020 DLP: 427.[address] scans at [facility] use at least one of these dose optimization techniques: automated e xposure control; mA and/or kV adjustment per patient size (includes targeted exams where dose is matc hed to clinical indication); or iterative reconstruction. FINDINGS: Prior postoperative changes ACDF C6-C7 with interbody fusion. Solid interbody fusion at C5-C6 and par tial fusion C7-T1 unchanged. Dorsal bone graft material with fusion dorsally at C5 extending into the thoracic spine. Hardware appears stable compared to the prior examinations. Solid appearing interbod y fusion at C6-C7. Normal C1-C2 articulation. No high-grade central canal stenosis. Mastoid air cells well aerated. No evidence of hardware loosening. No significant spinal canal or for aminal narrowing. No evidence of enhancing soft tissue or paraspinal mass. No evidence of catheter fr agment. CT/CT cervical spine wo/w [id number] IMPRESSION: 1. No evidence of catheter fragment in the cervical spine. 2. Prior postoperative changes ACDF with interbody fusion graft C6-C7. Fusion appears solid. Additional solid appearing fusion across the disc space at C5-C6 with partial fusion at C7-T1. 3. Dorsal fixation hardware with dorsolateral bony fusion C5 extending inferio rly appears unchanged.
--- NOTE | 2022-09-30 16:30 | CT_ITS ---
WS: [email or web address] CT THORACIC SPINE TECHNIQUE: Noncontrast and Contrast-enhanced CT of the thoracic spine with coronal and sagittal refor matted images. CLINICAL INFORMATION: Z97.8 - Presence of other specified devices COMPARISON: September 28, 2020 DLP: 1802.[address] scans at [facility] use at least one of these dose optimization techniques: automated e xposure control; mA and/or kV adjustment per patient size (includes targeted exams where dose is matc hed to clinical indication); or iterative reconstruction. FINDINGS: Thoracic scoliosis convex LEFT in the mid thoracic spine. Prior postoperative changes posterior lexi a nd pedicle screw fixation in the lower cervical extending into the thoracic spine. Hardware appears u nchanged compared to September 28, 2020. This extends to the T6 level. Dorsal rods appear intact. Prio r corpectomy with interbody fusion grafts T3-T4 Lungs appear well aerated. A few hazy ground glass and tree-in-bud infiltrates in the RIGHT upper lob e and RIGHT lower lobe partially visualized may be infectious or inflammatory. Normal GE junction. Intraspinal catheter with tip terminating at the T9 superior endplate. Prior postoperative changes AC DF in the cervical spine at C6-C7. CT/CT thoracic spine wo/w [id number] IMPRESSION: 1. Intraspinal catheter with tip terminating at the T9 superior endplate. Cath eter in the thoracic canal appears intact 2. Prior postoperative changes ACDF in the cervical spine at C6-C7. 3. Thoracic scoliosis convex LEFT in the mid thoracic spine. Prior postoperati ve changes dorsal lexi and pedicle screw fixation in the lower cervical extendin g into the thoracic spine to the T6 level. Hardware appears unchanged compared to September 28, 2020. 4. Prior corpectomy with interbody fusion graft at T3-T4 5. A few hazy groundglass infiltrates in RIGHT lung may be infectious or infla mmatory. No focal pneumonia or pleural fluid.
[2022-09-30] MEDS: iohexol 350 mg/mL 100 mL Btl IV ×2 (20:11→20:12)
== END 2022-09-30 15:49 | disposition home or self-care (01) ==
LOC: RAD 15:48
PROVIDERS: PCP Family Medicine; Visit Provider Specialist
DX: G82.20 Paraplegia, unspecified (principal); G40.109 Localization-related (focal) (partial) symptomatic epilepsy and epileptic syndromes with simple partial seizures, not intractable, without status epilepticus; K59.09 Other constipation; T85.610A Breakdown (mechanical) of cranial or spinal infusion catheter, initial encounter; G82.50 Quadriplegia, unspecified; R91.8 Other nonspecific abnormal finding of lung field; M41.84 Other forms of scoliosis, thoracic region
CPT/HCPCS: 72127; 72130; Q9967

== ENCOUNTER → 2022-10-01 08:23 | Outpatient (BNVA) | payer MEDICARE, MEDICAID, SELFPAY | PROVIDERS: PCP Family Medicine; Visit Provider Specialist | DX: G82.20 Paraplegia, unspecified (principal); T85.61 Breakdown (mechanical) of other specified internal prosthetic devices, implants and grafts; Z96.89 Presence of other specified functional implants; Z45.1 Encounter for adjustment and management of infusion pump; T85.610D Breakdown (mechanical) of cranial or spinal infusion catheter, subsequent encounter; Z79.899 Other long term (current) drug therapy; G40.109 Localization-related (focal) (partial) symptomatic epilepsy and epileptic syndromes with simple partial seizures, not intractable, without status epilepticus; G40.409 Other generalized epilepsy and epileptic syndromes, not intractable, without status epilepticus; L90.5 Scar conditions and fibrosis of skin | CPT/HCPCS: 62370; 99214 ==

== ENCOUNTER → 2022-10-14 10:33 | Outpatient (BNVA) | payer MEDICARE, MEDICAID, SELFPAY | PROVIDERS: PCP Family Medicine; Visit Provider Urology | DX: N30.90 Cystitis, unspecified without hematuria (principal); N31.9 Neuromuscular dysfunction of bladder, unspecified; Z87.440 Personal history of urinary (tract) infections; K59.09 Other constipation | CPT/HCPCS: 99213 ==

== ENCOUNTER → 2022-10-27 14:08 | Outpatient (BNVA) | payer MEDICARE, MEDICAID, SELFPAY | PROVIDERS: PCP Family Medicine; Visit Provider Specialist | DX: G82.20 Paraplegia, unspecified (principal); Z96.89 Presence of other specified functional implants; Z45.1 Encounter for adjustment and management of infusion pump; Z79.899 Other long term (current) drug therapy | CPT/HCPCS: 62370; 99213 ==

== ENCOUNTER → 2022-11-18 18:25 | Outpatient (BNVA) | payer MEDICARE, MEDICAID, SELFPAY | PROVIDERS: PCP Family Medicine; Visit Provider Nurse Practitioner Family | DX: Z01.818 Encounter for other preprocedural examination (principal) | CPT/HCPCS: 80048; 85025 ==

== ENCOUNTER → 2022-11-20 12:28 | Outpatient (BNVA) | payer MEDICARE, MEDICAID, SELFPAY | PROVIDERS: PCP Family Medicine; Visit Provider Nurse Practitioner Family | DX: Z01.818 Encounter for other preprocedural examination (principal) | CPT/HCPCS: 81003; 85025 ==

== ENCOUNTER → 2022-11-27 10:36 | Outpatient (BNVA) | payer MEDICARE, MEDICAID, SELFPAY | PROVIDERS: PCP Family Medicine; Visit Provider Specialist | DX: G82.21 Paraplegia, complete (principal); R52 Pain, unspecified; Z45.1 Encounter for adjustment and management of infusion pump; Z96.89 Presence of other specified functional implants; Z98.890 Other specified postprocedural states; Z79.899 Other long term (current) drug therapy; S14.106S Unspecified injury at C6 level of cervical spinal cord, sequela; V89.2XXS Person injured in unspecified motor-vehicle accident, traffic, sequela; Z89.612 Acquired absence of left leg above knee; Z99.3 Dependence on wheelchair | CPT/HCPCS: 62370; 96372; 99214; J1885 ==

== ENCOUNTER 2022-12-16 13:07 | Outpatient (CLI) | payer MEDICARE, MEDICAID, SELFPAY ==
--- NOTE | 2022-12-16 13:50 | CT_ITS ---
WS: [email or web address] CT ABDOMEN AND PELVIS WITH AND WITHOUT CONTRAST HISTORY: OPEN WOUND OF INGUINAL REGION/? OSTEOMYELITIS TECHNIQUE: Unenhanced 5 mm axial imaging first performed through the abdomen. Post contrast imaging t hrough the abdomen and pelvis. Oral contrast has been provided. Sagittal and coronal reformats are s ubmitted. All CT scans at [facility] use at least one of these dose optimization techniques: automated exposure control; mA and/or kV adjustment per patient size (includes targeted exams where d ose is matched to clinical indication); or iterative reconstruction. CONTRAST: Omnipaque 350; 100 mL IV. DLP: 1692.93 mGy.cm COMPARISON: 09/28/2020 and 03/26/2020 Lung bases are clear. Heart is top normal size. Mild decreased attenuation in the LEFT lobe of the liver with no displacement of the vessels is proba joel an area of fatty sparing. No bile duct dilatation. Normally distended gallbladder with stones. No acute cholecystitis. Spleen is enlarged at 15.6 cm. Very similar to the prior study. No adrenal mass . Normal pancreas. Small extrarenal pelves with no renal obstruction. Normal aorta. IVC filter just b elow the level of the renal veins. No adenopathy or ascites. No GI tract obstruction. Normal appendix. Matthews catheter noted within the urinary bladder. Complex fluid collection and soft tissue surrounding the RIGHT hip with displacement and destruction of the RIGHT hip. Progressive osseous destruction since the prior CT of 09/28/2020. May be a chronic osteomyelitis. Acetabulum is destroyed also. Similar findings are noted involving the LEFT hip but to a lesser extent. Soft tissue decubitus ulcer tract involving the posterior LEFT pelvis extends into the LEFT perineum. There is mild enhancement along the tract. The tract terminates near the region of the perineum. The re is no focal fluid collection along the tract. The tract appears very similar in appearance as comp ared to the most recent study. There may be slightly more air along the tract extending into the kamlesh rolando soft tissues. There is an additional soft tissue ulceration tract in the LEFT inguinal region which extends deep to the perineum. This may be contiguous with the soft tissue ulceration posteriorly as there is a soft tissue tract. There is no drainable collection. Focal sclerosis involving the LEFT pubic rami may be from old treated osteomyelitis. No acute osteomyelitis identified by CT. CT/CT abdomen pelvis wo/w [id number] IMPRESSION: 1. Soft tissue ulceration involving the posterior LEFT pelvis with extension t o the perineum is very similar to the study of 09/28/2020. There does appear to be a few more foci of air in the perineum suggesting this may be an acute infe ction superimposed on a chronic decubitus ulcer. There is no drainable collecti on. 2. Severe bilateral hip dysplasia with destruction of the bone, greatest invol ving the RIGHT hip. Chronic infections and osteomyelitis suspected. 3. Soft tissue ulceration in the LEFT inguinal region. May actually be contigu ous with the decubitus ulcer in the LEFT pelvis which extends to the perineum. No drainable collection.
[2022-12-16] MEDS: iohexol 350 mg/mL 500 mL Btl (per mL) IV (13:59)
== END 2022-12-16 13:08 | disposition home or self-care (01) ==
PROVIDERS: PCP Family Medicine; Visit Provider Specialist
DX: S31.109A Unspecified open wound of abdominal wall, unspecified quadrant without penetration into peritoneal cavity, initial encounter (principal); X58.XXXA Exposure to other specified factors, initial encounter
CPT/HCPCS: 74178; Q9967

== ENCOUNTER 2022-12-19 14:10 | Emergency (ER) | payer MEDICARE, MEDICAID, SELFPAY ==
[2022-12-19 14:27] VITALS: BP 101/52; PULSE 85; RESP 16; TEMP 37.3; O2SAT 94
[2022-12-19 14:54] VITALS: BP 129/66; O2SAT 91
[2022-12-19 15:00] VITALS: BP 129/66; O2SAT 97
--- NOTE | 2022-12-19 15:08 | US_ITS ---
WS: [email or web address] ULTRASOUND SOFT TISSUES soft tissue. HISTORY: Ultrasound baclofen pump RLQ -fluids or swelling around pump COMPARISON: CT 12/16/2022 TECHNIQUE: 2-D and color Doppler imaging is submitted. Ultrasound is performed around the pain pump in the RIGHT lower abdomen. There is no identifiable flu id collection. There is partial obscuration of the soft tissues surrounding the pump due to artifact. Also no fluid was noted on the recent CT from 12/16/2022. US/US soft tissue/extremity [id number] IMPRESSION: Negative ultrasound for soft tissue abnormality surrounding the baclofen pump R IGHT lower quadrant.
--- NOTE | 2022-12-19 15:08 | ECG_ITS ---
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 Measurements Intervals [place] Rate: 70 P: 48 OR: 150 QRS: 65 QRSD: 106 T: 32 QT: 363 QTc: 392 Interpretive Statements SINUS RHYTHM POSSIBLE LEFT ATRIAL ENLARGEMENT [-0.1mV P-WAVE IN V1/V2] NONSPECIFIC ST ELEVATION [0.05+ mV ST ELEVATION] No previous ECG available for comparison Electronically Signed On 12-19-2022 16:20:41 FARM OPERATOR by Jose Wheat M.D. [email or web address] behavioral health systemNervana Systemscleveland clinic [id number]
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
[2022-12-19 15:30] VITALS: BP 131/73; PULSE 75; RESP 21; O2SAT 89
[2022-12-19 15:51] LABS: Basophils % 0.2 %; Eosinophils % 0.1 %; Hematocrit 43.2 % (42.0-52.0); Hemoglobin 14.2 g/dL (11.7-16.6); Lymphocytes # 0.4 10^3/uL (0.8-4.8); Lymphocytes % 3.2 %; Mean Corpuscular HGB Conc 32.9 g/dL (30.0-36.0); Mean Corpuscular Hemoglobin 28.1 pg (28.0-34.0); Mean Corpuscular Volume 85.5 fl (80-94); Mean Platelet Volume 11.6 fL (7.4-10.4); Monocytes # 1.4 10^3/uL (0.2-0.9); Monocytes % 10.8 %; Neutrophils # 10.84 10^3/uL (1.8-7.7); Neutrophils % 85.3 %; Nucleated Red Blood Cells % 0 %; Platelet Count 207 10^3/cmm (130-400); Red Blood Count 5.05 10^6/uL (4.1-5.3); White Blood Count 12.7 10^3/uL (4.0-10.0)
[2022-12-19 16:00] VITALS: PULSE 87; O2SAT 94
[2022-12-19 16:04] LABS: Alanine Aminotransferase 18 U/L (0-41); Albumin Level 4.2 g/dL (3.5-5.2); Alkaline Phosphatase 85 U/L (40-130); Anion Gap 17.3 (5-19); Aspartate Amino Transferase 16 U/L (0-40); Blood Urea Nitrogen 13 mg/dL (6-20); Calcium 9.5 mg/dL (8.5-10.5); Carbon Dioxide 23 mmol/L (22-29); Chloride 99 mmol/L (98-107); Globulin 3.1 g/dL (1.3-4.6); Glomerular Filtration Rate 242.1 mL/min (90-130); Glucose 96 mg/dL (65-115); Osmolality Calculated 282 mOsm/kg (285-295); Potassium 3.3 mmol/L (3.5-5.1); Sodium 136 mmol/L (136-145); Total Bilirubin 0.7 mg/dL (0.15-1.2); Total Protein 7.3 g/dL (6.6-8.7)
[2022-12-19] MEDS: promethazine 25 mg/mL SDV 1 mL IM (16:04)
[2022-12-19] MEDS: diphenhydrAMINE 50 mg/mL SDV 1mL IM (16:04)
[2022-12-19 18:01] LABS: Add Urine Microscopic? NO; Charge for UA Resulting for Rev
[2022-12-19 18:06] LABS: Bilirubin Urine Neg (Negative); Blood Urine Neg (Negative); Glucose Urine UA Norm (Normal); Ketones Urine Negative (Negative); Leukocyte Esterase Urine Negative (Negative); Nitrate Urine Negative (Negative); Protein Urine Neg (Negative); Sulfosalicylic Acid Urine Negative (Negative); Urine Appearance Clear (CLEAR); Urine Color Yellow (Yellow); Urobilinogen Urine Norm (Negative); pH Urine 8 (5-7)
[2022-12-19 18:30] VITALS: PULSE 92; RESP 15; O2SAT 94
== END 2022-12-19 18:31 | disposition home or self-care (01) ==
PROVIDERS: Emergency Provider Family Medicine; PCP Family Medicine
DX: R10.31 Right lower quadrant pain (principal); G89.29 Other chronic pain; M54.9 Dorsalgia, unspecified; Z87.891 Personal history of nicotine dependence; Z79.899 Other long term (current) drug therapy
CPT/HCPCS: 36415; 76882; 80053; 81003; 85025; 87040; 93005; 96372; 99285; J1200; J2550

== ENCOUNTER → 2023-01-05 12:15 | Outpatient (BNVA) | payer MEDICARE, MEDICAID, SELFPAY | PROVIDERS: PCP Family Medicine; Visit Provider Specialist | DX: G82.20 Paraplegia, unspecified (principal); Z96.89 Presence of other specified functional implants; Z45.1 Encounter for adjustment and management of infusion pump; T81.31XD Disruption of external operation (surgical) wound, not elsewhere classified, subsequent encounter; Y83.8 Other surgical procedures as the cause of abnormal reaction of the patient, or of later complication, without mention of misadventure at the time of the procedure; G40.109 Localization-related (focal) (partial) symptomatic epilepsy and epileptic syndromes with simple partial seizures, not intractable, without status epilepticus; K59.09 Other constipation; M86.659 Other chronic osteomyelitis, unspecified thigh | CPT/HCPCS: 62367; 97597; 99213; 99214 ==

== ENCOUNTER → 2023-01-29 11:33 | Outpatient (BNVA) | payer MEDICARE, MEDICAID, SELFPAY | PROVIDERS: PCP Family Medicine; Visit Provider Specialist | DX: G82.20 Paraplegia, unspecified (principal); Z96.89 Presence of other specified functional implants; Z45.1 Encounter for adjustment and management of infusion pump; M86.659 Other chronic osteomyelitis, unspecified thigh; Z79.899 Other long term (current) drug therapy | CPT/HCPCS: 62367; 99212 ==

== ENCOUNTER → 2023-02-02 12:01 | Outpatient (BNVA) | payer MEDICARE, MEDICAID, SELFPAY | PROVIDERS: PCP Family Medicine; Visit Provider Specialist | DX: G82.20 Paraplegia, unspecified (principal); T81.31XD Disruption of external operation (surgical) wound, not elsewhere classified, subsequent encounter; Y83.8 Other surgical procedures as the cause of abnormal reaction of the patient, or of later complication, without mention of misadventure at the time of the procedure; I96 Gangrene, not elsewhere classified | CPT/HCPCS: 11042; 62367; 62368; 99213 ==

== ENCOUNTER → 2023-02-05 10:28 | Outpatient (BNVA) | payer MEDICARE, MEDICAID, SELFPAY | PROVIDERS: PCP Family Medicine; Visit Provider Specialist | DX: G82.20 Paraplegia, unspecified (principal); Z96.89 Presence of other specified functional implants; Z45.1 Encounter for adjustment and management of infusion pump | CPT/HCPCS: 62367; 62368; 99204; 99213 ==

== ENCOUNTER → 2023-02-17 13:59 | Outpatient (BNVA) | payer MEDICARE, MEDICAID, SELFPAY | PROVIDERS: PCP Family Medicine; Visit Provider Nurse Practitioner Family | DX: T81.31XD Disruption of external operation (surgical) wound, not elsewhere classified, subsequent encounter (principal); Y83.8 Other surgical procedures as the cause of abnormal reaction of the patient, or of later complication, without mention of misadventure at the time of the procedure | CPT/HCPCS: 11042 ==

== ENCOUNTER → 2023-03-03 09:38 | Outpatient (BNVA) | payer MEDICARE, MEDICAID, SELFPAY | PROVIDERS: PCP Family Medicine; Visit Provider Otolaryngology | DX: H90.0 Conductive hearing loss, bilateral (principal); H61.23 Impacted cerumen, bilateral; T81.31XD Disruption of external operation (surgical) wound, not elsewhere classified, subsequent encounter; Y83.8 Other surgical procedures as the cause of abnormal reaction of the patient, or of later complication, without mention of misadventure at the time of the procedure; L08.89 Other specified local infections of the skin and subcutaneous tissue | CPT/HCPCS: 11042; 69210; 99202 ==

== ENCOUNTER → 2023-03-05 08:54 | Outpatient (BNVA) | payer MEDICARE, MEDICAID, SELFPAY | PROVIDERS: PCP Family Medicine; Visit Provider Specialist | DX: Z45.1 Encounter for adjustment and management of infusion pump (principal); Z96.89 Presence of other specified functional implants; G82.20 Paraplegia, unspecified | CPT/HCPCS: 62368; 99213 ==

== ENCOUNTER → 2023-03-17 12:57 | Outpatient (BNVA) | payer MEDICARE, MEDICAID, SELFPAY | PROVIDERS: PCP Family Medicine; Visit Provider Nurse Practitioner Family | DX: T81.31XD Disruption of external operation (surgical) wound, not elsewhere classified, subsequent encounter (principal); Y83.8 Other surgical procedures as the cause of abnormal reaction of the patient, or of later complication, without mention of misadventure at the time of the procedure | CPT/HCPCS: 97597 ==

== ENCOUNTER → 2023-03-19 13:38 | Outpatient (BNVA) | payer MEDICARE, MEDICAID, SELFPAY | PROVIDERS: PCP Family Medicine; Visit Provider Specialist | DX: Z45.1 Encounter for adjustment and management of infusion pump (principal); Z96.89 Presence of other specified functional implants; G82.20 Paraplegia, unspecified; R10.9 Unspecified abdominal pain; Z79.899 Other long term (current) drug therapy | CPT/HCPCS: 62368; 99214 ==

== ENCOUNTER 2023-03-19 14:07 | Emergency (ER) | payer MEDICARE, MEDICAID, SELFPAY ==
[2023-03-19 14:41] VITALS: BP 94/56; PULSE 76; RESP 16; TEMP 36.7; O2SAT 99
[2023-03-19 16:02] LABS: Add Urine Microscopic? YES; Bacteria Urine TRACE /hpf; Bilirubin Urine Neg (Negative); Blood Urine 2+ (Negative); Glucose Urine UA Norm (Normal); Ketones Urine Negative (Negative); Leukocyte Esterase Urine 2+ (Negative); Nitrate Urine Negative (Negative); Protein Urine Neg (Negative); RBC Urine 0-4 /hpf (0-2); Specific Gravity, Urine 1.015 (1.005-1.030); Squamous Epithelial Cell Urine 0-4 /hpf (0-5); Urine Appearance SL Hazy (CLEAR); Urine Color Yellow (Yellow); Urobilinogen Urine Neg (Negative); pH Urine 6 (5-7)
[2023-03-19 16:03] LABS: Add Urine Culture? Yes
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
--- NOTE | 2023-03-19 17:53 | CTR_ITS ---
PROCEDURE INFORMATION: Exam: CT Abdomen And Pelvis Without Contrast Exam date and time: 03/19/2023 6:03 PM Age: 37 years old Clinical indication: Abdominal pain; Localized; Lower; Prior surgery; Surgery date: 6+ months; Surgery type: Pain pump; Additional info: Left lower quadrant abdominal pain TECHNIQUE: Imaging protocol: Computed tomography of the abdomen and pelvis without contrast. Radiation optimization: All CT scans at this facility use at least one of these dose optimization techniques: automated exposure control; mA and/or kV adjustment per patient size (includes targeted exams where dose is matched to clinical indication); or iterative reconstruction. REPORTING DATA: Count of CT and Cardiac NM exams in prior 12 months: This patient has received 4 known CTs and 0 known cardiac nuclear medicine studies in the 12 months prior to the current study. COMPARISON: CT abdomen pelvis wo/w [id number] 12/16/2022 3:21 PM RADIATION DOSE METRICS: Total DLP (mGy-cm): 681 FINDINGS: Tubes, catheters and devices: Spinal stimulator. Lungs: Right lower lobe atelectasis. Liver: Normal. No mass. Gallbladder and bile ducts: Cholelithiasis. Pancreas: Normal. No ductal dilation. Spleen: Normal. No splenomegaly. Adrenal glands: Normal. No mass. Kidneys and ureters: Normal. No hydronephrosis. Stomach and bowel: Unremarkable. No obstruction. No mucosal thickening. Appendix: No evidence of appendicitis. Intraperitoneal space: Unremarkable. No free air. No significant fluid collection. Vasculature: Inferior vena cava filter. Lymph nodes: Unremarkable. No enlarged lymph nodes. Urinary bladder: Matthews catheter in the urinary bladder. Reproductive: Unremarkable as visualized. Bones/joints: Right femoral head appears absent with chronic appearing cortical thickening of the proximal femur with a fluid collection in the right hip joint region measuring up to 6.5 cm, similar to prior exam, underlying infection is not excluded. Left femoral head appears absent with superior displacement of the femur. Possible midline decubitus ulcer. Soft tissues: Unremarkable. CT/CT abdomen pelvis wo con [id number] IMPRESSION: 1. Right femoral head appears absent with chronic appearing cortical thickening of the proximal femur with a fluid collection in the right hip joint region measuring up to 6.5 cm, similar to prior exam, underlying infection is not excluded. 2. Matthews catheter in the urinary bladder. 3. Right lower lobe atelectasis. 4. Cholelithiasis. 5. Inferior vena cava filter. 6. Spinal stimulator. 7. Left femoral head appears absent with superior displacement of the femur. 8. Possible midline decubitus ulcer. 9. Negative for acute appearing inflammatory process in the abdomen or pelvis. COMMENTS: For patients with an IVC filter, recommend assessment for a management plan for the patient's IVC filter. If there is no established management plan, recommend referral to an interventional clinician on a nonemergent basis for evaluation.
--- NOTE | 2023-03-19 17:56 | PC.NURSE ---
Unable to start IV, attempted by several nurses. IVP changed to IM per Piat.
[2023-03-19] MEDS: morphine 4 mg/mL SDV 1 mL IM (18:22)
[2023-03-19] MEDS: ondansetron 2 mg/ML SDV 2 mL 4 MG IM (18:22)
[2023-03-19 18:43] LABS: Basophils % 0.3 %; Eosinophils # 0.1 10^3/uL (0.0-0.8); Eosinophils % 1.8 %; Hematocrit 42.9 % (42.0-52.0); Hemoglobin 13.3 g/dL (11.7-16.6); Lymphocytes # 0.8 10^3/uL (0.8-4.8); Lymphocytes % 11.2 %; Mean Corpuscular Hemoglobin 27.1 pg (28.0-34.0); Mean Corpuscular Volume 87.6 fl (80-94); Mean Platelet Volume 11.2 fL (7.4-10.4); Monocytes # 0.6 10^3/uL (0.2-0.9); Monocytes % 8.1 %; Neutrophils # 5.29 10^3/uL (1.8-7.7); Neutrophils % 78.3 %; Nucleated Red Blood Cells % 0 %; Platelet Count 211 10^3/cmm (130-400); Red Cell Distribution Width 14.2 % (12.1-15.1); White Blood Count 6.8 10^3/uL (4.0-10.0)
[2023-03-19 19:43] LABS: Alanine Aminotransferase 14 U/L (0-41); Alkaline Phosphatase 123 U/L (40-130); Blood Urea Nitrogen 10 mg/dL (6-20); Calcium 9.2 mg/dL (8.5-10.5); Carbon Dioxide 19 mmol/L (22-29); Chloride 101 mmol/L (98-107); Glomerular Filtration Rate 242.1 mL/min (90-130); Glucose 80 mg/dL (65-115); Lipase 17 U/L (13-60); Osmolality Calculated 280 mOsm/kg (285-295); Sodium 136 mmol/L (136-145); Total Bilirubin 0.5 mg/dL (0.15-1.2)
[2023-03-19 19:46] LABS: Anion Gap 19.9 (5-19); Aspartate Amino Transferase 18 U/L (0-40); Potassium 3.9 mmol/L (3.5-5.1)
[2023-03-19] MEDS: HYDROmorphone 1 mg/mL INJ 1 mL IM (20:21)
[2023-03-19] MEDS: orphenadrine 30 mg/mL Inj 2 mL 60 MG IM (20:22)
[2023-03-19] MEDS: HYDROcodone-acetaminophen 7.5-325 mg Tablet 1 TAB PO (20:53)
== END 2023-03-19 20:56 | disposition home or self-care (01) ==
PROVIDERS: Emergency Medicine; Emergency Provider Physician Assistant; PCP Specialist
DX: R10.30 Lower abdominal pain, unspecified (principal); K80.20 Calculus of gallbladder without cholecystitis without obstruction; Z87.891 Personal history of nicotine dependence; Z89.519 Acquired absence of unspecified leg below knee; G82.20 Paraplegia, unspecified; Z99.3 Dependence on wheelchair
CPT/HCPCS: 36415; 62368; 74176; 80053; 81001; 83690; 85025; 87077; 87086; 87186; 96372; 99214; 99285; J1170; J2270; J2360; J2405

== ENCOUNTER → 2023-03-26 09:14 | Outpatient (BNVA) | payer MEDICARE, MEDICAID, SELFPAY | PROVIDERS: PCP Specialist; Visit Provider Specialist | DX: M54.6 Pain in thoracic spine (principal); R29.90 Unspecified symptoms and signs involving the nervous system; G82.20 Paraplegia, unspecified; Z97.8 Presence of other specified devices; R10.9 Unspecified abdominal pain; M47.14 Other spondylosis with myelopathy, thoracic region; Z45.1 Encounter for adjustment and management of infusion pump; Z96.89 Presence of other specified functional implants | CPT/HCPCS: 62368; 72128; 99214 ==

== ENCOUNTER → 2023-03-26 09:14 | Outpatient (BNVA) | payer MEDICARE, MEDICAID, SELFPAY | PROVIDERS: PCP Specialist; Visit Provider Specialist | DX: Z45.1 Encounter for adjustment and management of infusion pump (principal); Z96.89 Presence of other specified functional implants; G82.20 Paraplegia, unspecified; R10.9 Unspecified abdominal pain | CPT/HCPCS: 62368; 99214 ==

== ENCOUNTER → 2023-03-27 14:08 | Outpatient (BNVA) | payer MEDICARE, MEDICAID, SELFPAY | PROVIDERS: PCP Family Medicine; Visit Provider Surgery | DX: K59.09 Other constipation (principal); K92.1 Melena; G82.50 Quadriplegia, unspecified | CPT/HCPCS: 99203 ==

== ENCOUNTER → 2023-03-31 13:08 | Outpatient (BNVA) | payer MEDICARE, MEDICAID, SELFPAY | PROVIDERS: PCP Family Medicine; Visit Provider Nurse Practitioner Family | DX: T81.31XA Disruption of external operation (surgical) wound, not elsewhere classified, initial encounter (principal); Y83.8 Other surgical procedures as the cause of abnormal reaction of the patient, or of later complication, without mention of misadventure at the time of the procedure; L98.491 Non-pressure chronic ulcer of skin of other sites limited to breakdown of skin; I96 Gangrene, not elsewhere classified | CPT/HCPCS: 11042 ==

== ENCOUNTER → 2023-04-02 09:08 | Outpatient (BNVA) | payer MEDICARE, MEDICAID, SELFPAY | PROVIDERS: PCP Family Medicine; Visit Provider Specialist | DX: Z45.1 Encounter for adjustment and management of infusion pump (principal); Z96.89 Presence of other specified functional implants; G82.20 Paraplegia, unspecified; N39.0 Urinary tract infection, site not specified; G40.109 Localization-related (focal) (partial) symptomatic epilepsy and epileptic syndromes with simple partial seizures, not intractable, without status epilepticus; G40.409 Other generalized epilepsy and epileptic syndromes, not intractable, without status epilepticus | CPT/HCPCS: 62367; 99213 ==

== ENCOUNTER → 2023-04-28 13:53 | Outpatient (BNVA) | payer MEDICARE, MEDICAID, SELFPAY | PROVIDERS: PCP Family Medicine; Visit Provider Nurse Practitioner Family | DX: T81.31XD Disruption of external operation (surgical) wound, not elsewhere classified, subsequent encounter (principal); Y83.8 Other surgical procedures as the cause of abnormal reaction of the patient, or of later complication, without mention of misadventure at the time of the procedure; E11.52 Type 2 diabetes mellitus with diabetic peripheral angiopathy with gangrene; L97.822 Non-pressure chronic ulcer of other part of left lower leg with fat layer exposed | CPT/HCPCS: 11042; 97597; 99213 ==

== ENCOUNTER → 2023-05-05 15:13 | Outpatient (BNVA) | payer MEDICARE, MEDICAID, SELFPAY | PROVIDERS: PCP Family Medicine; Visit Provider Nurse Practitioner Family | DX: T81.31XD Disruption of external operation (surgical) wound, not elsewhere classified, subsequent encounter (principal); Y83.8 Other surgical procedures as the cause of abnormal reaction of the patient, or of later complication, without mention of misadventure at the time of the procedure; I96 Gangrene, not elsewhere classified | CPT/HCPCS: 11042; 97605; A6210; A6212; A6237; A6250 ==

== ENCOUNTER → 2023-05-07 14:20 | Outpatient (BNVA) | payer MEDICARE, MEDICAID, SELFPAY | PROVIDERS: PCP Family Medicine; Visit Provider Specialist | DX: Z45.1 Encounter for adjustment and management of infusion pump (principal); Z96.89 Presence of other specified functional implants; G82.21 Paraplegia, complete; G40.109 Localization-related (focal) (partial) symptomatic epilepsy and epileptic syndromes with simple partial seizures, not intractable, without status epilepticus; G40.409 Other generalized epilepsy and epileptic syndromes, not intractable, without status epilepticus | CPT/HCPCS: 62370; 99213 ==

== ENCOUNTER → 2023-05-08 15:47 | Outpatient (BNVA) | payer MEDICARE, MEDICAID, SELFPAY | PROVIDERS: PCP Family Medicine; Visit Provider Thoracic Surgery (Cardiothoracic Vascular Surgery) | DX: T81.31XD Disruption of external operation (surgical) wound, not elsewhere classified, subsequent encounter (principal); Y83.8 Other surgical procedures as the cause of abnormal reaction of the patient, or of later complication, without mention of misadventure at the time of the procedure | CPT/HCPCS: 97605; A6210; A6237; A6250 ==

== ENCOUNTER → 2023-05-11 16:18 | Outpatient (BNVA) | payer MEDICARE, MEDICAID, SELFPAY | PROVIDERS: PCP Family Medicine; Visit Provider Thoracic Surgery (Cardiothoracic Vascular Surgery) | DX: T81.31XD Disruption of external operation (surgical) wound, not elsewhere classified, subsequent encounter (principal); Y83.8 Other surgical procedures as the cause of abnormal reaction of the patient, or of later complication, without mention of misadventure at the time of the procedure | CPT/HCPCS: 11042; 97597; 97605; A6212; A6219; A6237; A6250 ==

== ENCOUNTER → 2023-05-14 13:07 | Outpatient (BNVA) | payer MEDICARE, MEDICAID, SELFPAY | PROVIDERS: PCP Family Medicine; Visit Provider Nurse Practitioner Family | DX: T81.31XD Disruption of external operation (surgical) wound, not elsewhere classified, subsequent encounter (principal); Y83.8 Other surgical procedures as the cause of abnormal reaction of the patient, or of later complication, without mention of misadventure at the time of the procedure | CPT/HCPCS: 11042; 97597; 97605; A6210; A6219; A6237 ==

== ENCOUNTER → 2023-05-18 11:15 | Outpatient (BNVA) | payer MEDICARE, MEDICAID, SELFPAY | PROVIDERS: PCP Family Medicine; Visit Provider Thoracic Surgery (Cardiothoracic Vascular Surgery) | DX: T81.31XD Disruption of external operation (surgical) wound, not elsewhere classified, subsequent encounter (principal); Y83.8 Other surgical procedures as the cause of abnormal reaction of the patient, or of later complication, without mention of misadventure at the time of the procedure | CPT/HCPCS: 97605; A6219; A6237; A6250 ==

== ENCOUNTER → 2023-05-21 13:15 | Outpatient (BNVA) | payer MEDICARE, MEDICAID, SELFPAY | PROVIDERS: PCP Family Medicine; Visit Provider Nurse Practitioner Family | DX: T81.31XD Disruption of external operation (surgical) wound, not elsewhere classified, subsequent encounter (principal); Y83.8 Other surgical procedures as the cause of abnormal reaction of the patient, or of later complication, without mention of misadventure at the time of the procedure; I96 Gangrene, not elsewhere classified | CPT/HCPCS: 11042; 97597; 97605; 99211; A6210; A6237; A6250 ==

== ENCOUNTER → 2023-05-25 11:08 | Outpatient (BNVA) | payer MEDICARE, MEDICAID, SELFPAY | PROVIDERS: PCP Family Medicine; Visit Provider Nurse Practitioner Family | DX: T81.31XD Disruption of external operation (surgical) wound, not elsewhere classified, subsequent encounter (principal); Y83.8 Other surgical procedures as the cause of abnormal reaction of the patient, or of later complication, without mention of misadventure at the time of the procedure ==

== ENCOUNTER → 2023-05-28 13:04 | Outpatient (BNVA) | payer MEDICARE, MEDICAID, SELFPAY | PROVIDERS: PCP Family Medicine; Visit Provider Nurse Practitioner Family | DX: T81.31XD Disruption of external operation (surgical) wound, not elsewhere classified, subsequent encounter (principal); Y83.8 Other surgical procedures as the cause of abnormal reaction of the patient, or of later complication, without mention of misadventure at the time of the procedure; Z09 Encounter for follow-up examination after completed treatment for conditions other than malignant neoplasm | CPT/HCPCS: 11042; A6210 ==

== ENCOUNTER 2023-05-31 14:29 | Emergency (ER) | payer MEDICARE, MEDICAID, SELFPAY ==
[2023-05-31 14:37] VITALS: BP 170/85; PULSE 69; RESP 18; TEMP 36.9; O2SAT 97; BMI 25.1
--- NOTE | 2023-05-31 14:57 | CTR_ITS ---
PROCEDURE INFORMATION: Exam: CT Head Without Contrast Exam date and time: 05/31/2023 4:40 PM Age: 37 years old Clinical indication: Syncope and collapse TECHNIQUE: Imaging protocol: Computed tomography of the head without contrast. Radiation optimization: All CT scans at this facility use at least one of these dose optimization techniques: automated exposure control; mA and/or kV adjustment per patient size (includes targeted exams where dose is matched to clinical indication); or iterative reconstruction. REPORTING DATA: Count of CT and Cardiac NM exams in prior 12 months: This patient has received 6 known CTs and 0 known cardiac nuclear medicine studies in the 12 months prior to the current study. COMPARISON: CT cervical spine wo/w [id number] 09/30/2022 7:48 PM RADIATION DOSE METRICS: Total DLP (mGy-cm): 1084.88 FINDINGS: Brain: Normal. No hemorrhage. Unremarkable white matter. No mass effect. Cerebral ventricles: No ventriculomegaly. Paranasal sinuses: Visualized sinuses are unremarkable. No fluid levels. Mastoid air cells: Visualized mastoid air cells are well aerated. Bones/joints: Unremarkable. No acute fracture. Soft tissues: There is some swelling of the high right parietal scalp which could represent focal contusion. Please correlate with physical examination findings. CT/CT head wo con* [id number] IMPRESSION: Scalp contusion. No acute intracranial finding
--- NOTE | 2023-05-31 14:58 | ECG_ITS ---
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 Measurements Intervals [place] Rate: 78 P: 63 MD: 156 QRS: 30 QRSD: 93 T: 65 QT: 385 QTc: 439 Interpretive Statements SINUS RHYTHM LEFT ATRIAL ENLARGEMENT [-0.15mV P-WAVE IN V1/V2] Compared to ECG 12/19/2022 15:22:48 ST (T wave) deviation no longer present Electronically Signed On 06-01-2023 21:19:28 CDT by Daisy Ruiz M.D. [id number]
[2023-05-31 14:59] VITALS: BP 220/100; PULSE 46; RESP 20; O2SAT 98
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
[2023-05-31 15:59] LABS: Basophils % 0.3 %; Eosinophils # 0.2 10^3/uL (0.0-0.8); Eosinophils % 2.1 %; Hematocrit 38.3 % (42.0-52.0); Hemoglobin 12.1 g/dL (11.7-16.6); Lymphocytes # 0.6 10^3/uL (0.8-4.8); Lymphocytes % 7.9 %; Mean Corpuscular HGB Conc 31.6 g/dL (30.0-36.0); Mean Corpuscular Hemoglobin 27.1 pg (28.0-34.0); Mean Corpuscular Volume 85.7 fl (80-94); Mean Platelet Volume 10.8 fL (7.4-10.4); Monocytes # 0.6 10^3/uL (0.2-0.9); Monocytes % 7.5 %; Neutrophils # 6.16 10^3/uL (1.8-7.7); Neutrophils % 81.9 %; Nucleated Red Blood Cells % 0 %; Platelet Count 246 10^3/cmm (130-400); Red Blood Count 4.47 10^6/uL (4.1-5.3); Red Cell Distribution Width 14.4 % (12.1-15.1); White Blood Count 7.5 10^3/uL (4.0-10.0)
--- NOTE | 2023-05-31 16:03 | PC.NURSE ---
Patient has a catheter in with a leg bag. He reported there is no way to clamp the tube to get fresh urine. He reported he could take that catheter out, and then self cath as needed, but does not have any supplies with him. Updated patient provider, and he reported to go ahead and use that urine from the patient's leg bag.
[2023-05-31 16:20] LABS: Alanine Aminotransferase 13 U/L (0-41); Albumin Level 3.7 g/dL (3.5-5.2); Alkaline Phosphatase 84 U/L (40-130); Aspartate Amino Transferase 16 U/L (0-40); Blood Urea Nitrogen 8 mg/dL (6-20); Calcium 8.8 mg/dL (8.5-10.5); Carbon Dioxide 22 mmol/L (22-29); Chloride 102 mmol/L (98-107); Globulin 2.8 g/dL (1.3-4.6); Glomerular Filtration Rate 187.1 mL/min (90-130); Glucose 98 mg/dL (65-115); Magnesium 1.8 mg/dL (1.7-2.3); Osmolality Calculated 280 mOsm/kg (285-295); Sodium 136 mmol/L (136-145); Total Bilirubin 0.2 mg/dL (0.15-1.2); Total Protein 6.5 g/dL (6.6-8.7)
[2023-05-31 16:27] LABS: Anion Gap 15.7 (5-19); Potassium 3.7 mmol/L (3.5-5.1)
[2023-05-31 16:29] LABS: Amphetamines Screen Urine Negative (Negative); Barbiturates Screen Urine Negative (Negative); Benzodiazepines Screen Urine Negative (Negative); Cocaine Screen Urine Negative (Negative); Opiate Screen Urine Negative (Negative); PCP Screen Urine Negative (Negative); THC Screen Urine Negative (Negative)
[2023-05-31 16:30] LABS: Glucose Urine UA Norm (Normal); Protein Urine 1+ (Negative); Urine Appearance Clear (CLEAR); Urine Color Yellow (Yellow); pH Urine 7 (5-7)
[2023-05-31 16:31] LABS: Add Urine Culture? Yes; Add Urine Microscopic? YES; Bacteria Urine 2+ /hpf; Bilirubin Urine Neg (Negative); Blood Urine 2+ (Negative); Ketones Urine Negative (Negative); Leukocyte Esterase Urine 2+ (Negative); Nitrate Urine Negative (Negative); Squamous Epithelial Cell Urine 0-4 /hpf (0-5); Triple Phosphate Crystal Urine 0-4 /hpf; Urobilinogen Urine Norm (Negative)
[2023-05-31 16:33] LABS: Troponin(5th) Baseline 23 ng/L (0-15)
[2023-05-31 17:08] VITALS: BP 114/62; PULSE 62; RESP 16; O2SAT 97
--- NOTE | 2023-05-31 17:12 | ECG_ITS ---
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 Measurements Intervals [place] Rate: 49 P: 14 [place]: 142 QRS: 45 QRSD: 95 T: 66 QT: 428 QTc: 389 Interpretive Statements SINUS BRADYCARDIA POSSIBLE LEFT ATRIAL ENLARGEMENT [-0.1mV P-WAVE IN V1/V2] MODERATE ST DEPRESSION [0.05+ mV ST DEPRESSION] Compared to ECG 05/31/2023 15:10:25 ST (T wave) deviation now present Sinus rhythm no longer present Electronically Signed On 06-01-2023 21:36:19 CDT by Daisy Ruiz M.D. [id number]
[2023-05-31 18:36] LABS: Troponin 5 2HR 22.39 ng/L (0-15)
[2023-05-31 18:38] LABS: Troponin 5 2HR Delta -0.61 ABS# (0-10)
[2023-05-31 19:06] VITALS: BP 114/62; PULSE 62; RESP 16; TEMP 36.9; O2SAT 97
== END 2023-05-31 20:33 | disposition home or self-care (01) ==
PROVIDERS: Emergency Provider Emergency Medicine; PCP Family Medicine
DX: R55 Syncope and collapse (principal); S00.03XA Contusion of scalp, initial encounter; S00.01XA Abrasion of scalp, initial encounter; Z87.891 Personal history of nicotine dependence; W05.0XXA Fall from non-moving wheelchair, initial encounter; Y92.512 Supermarket, store or market as the place of occurrence of the external cause
CPT/HCPCS: 36415; 70450; 80053; 80306; 81001; 83735; 84484; 85025; 87077; 87086; 87186; 93005; 99285

== ENCOUNTER → 2023-06-04 13:11 | Outpatient (BNVA) | payer MEDICARE, MEDICAID, SELFPAY | PROVIDERS: PCP Family Medicine; Visit Provider Nurse Practitioner Family | DX: T81.31XD Disruption of external operation (surgical) wound, not elsewhere classified, subsequent encounter (principal); Y83.8 Other surgical procedures as the cause of abnormal reaction of the patient, or of later complication, without mention of misadventure at the time of the procedure | CPT/HCPCS: 11042; 97605; A6237; A6250 ==

== ENCOUNTER → 2023-06-08 11:02 | Outpatient (BNVA) | payer MEDICARE, MEDICAID, SELFPAY | PROVIDERS: PCP Family Medicine; Visit Provider Nurse Practitioner Family | DX: T81.31XD Disruption of external operation (surgical) wound, not elsewhere classified, subsequent encounter (principal); Y83.8 Other surgical procedures as the cause of abnormal reaction of the patient, or of later complication, without mention of misadventure at the time of the procedure | CPT/HCPCS: 97605; A6237; A6250 ==

== ENCOUNTER → 2023-06-11 13:17 | Outpatient (BNVA) | payer MEDICARE, MEDICAID, SELFPAY | PROVIDERS: PCP Family Medicine; Visit Provider Nurse Practitioner Family | DX: T81.31XD Disruption of external operation (surgical) wound, not elsewhere classified, subsequent encounter (principal); Y83.8 Other surgical procedures as the cause of abnormal reaction of the patient, or of later complication, without mention of misadventure at the time of the procedure | CPT/HCPCS: 11042; A6237; A6250 ==

== ENCOUNTER → 2023-06-15 16:55 | Outpatient (BNVA) | payer MEDICARE, MEDICAID, SELFPAY | PROVIDERS: PCP Family Medicine; Visit Provider Thoracic Surgery (Cardiothoracic Vascular Surgery) | DX: T81.31XD Disruption of external operation (surgical) wound, not elsewhere classified, subsequent encounter (principal); Y83.8 Other surgical procedures as the cause of abnormal reaction of the patient, or of later complication, without mention of misadventure at the time of the procedure | CPT/HCPCS: 97605; A6237; A6250 ==

== ENCOUNTER → 2023-06-18 13:42 | Outpatient (BNVA) | payer MEDICARE, MEDICAID, SELFPAY | PROVIDERS: PCP Family Medicine; Visit Provider Thoracic Surgery (Cardiothoracic Vascular Surgery) | DX: T81.31XD Disruption of external operation (surgical) wound, not elsewhere classified, subsequent encounter (principal); Y83.8 Other surgical procedures as the cause of abnormal reaction of the patient, or of later complication, without mention of misadventure at the time of the procedure; I96 Gangrene, not elsewhere classified | CPT/HCPCS: 97597; 97605; A6237; A6250 ==

== ENCOUNTER → 2023-06-22 15:45 | Outpatient (BNVA) | payer MEDICARE, MEDICAID, SELFPAY | PROVIDERS: PCP Family Medicine; Visit Provider Thoracic Surgery (Cardiothoracic Vascular Surgery) | DX: T81.31XD Disruption of external operation (surgical) wound, not elsewhere classified, subsequent encounter (principal); Y83.8 Other surgical procedures as the cause of abnormal reaction of the patient, or of later complication, without mention of misadventure at the time of the procedure | CPT/HCPCS: 97605; A6237; A6250 ==

== ENCOUNTER → 2023-06-25 14:52 | Outpatient (BNVA) | payer MEDICARE, MEDICAID, SELFPAY | PROVIDERS: PCP Family Medicine; Visit Provider Nurse Practitioner Family | DX: T81.31XD Disruption of external operation (surgical) wound, not elsewhere classified, subsequent encounter (principal); Y83.8 Other surgical procedures as the cause of abnormal reaction of the patient, or of later complication, without mention of misadventure at the time of the procedure; I96 Gangrene, not elsewhere classified | CPT/HCPCS: 97597; 97605 ==

== ENCOUNTER → 2023-07-02 13:51 | Outpatient (BNVA) | payer MEDICARE, MEDICAID, SELFPAY | PROVIDERS: PCP Family Medicine; Visit Provider Nurse Practitioner Family | DX: T81.31XD Disruption of external operation (surgical) wound, not elsewhere classified, subsequent encounter (principal); Y83.8 Other surgical procedures as the cause of abnormal reaction of the patient, or of later complication, without mention of misadventure at the time of the procedure | CPT/HCPCS: 11042; A6446 ==

== ENCOUNTER → 2023-07-09 13:44 | Outpatient (BNVA) | payer MEDICARE, MEDICAID, SELFPAY | PROVIDERS: PCP Family Medicine; Visit Provider Nurse Practitioner Family | DX: T81.31XD Disruption of external operation (surgical) wound, not elsewhere classified, subsequent encounter (principal); Y83.8 Other surgical procedures as the cause of abnormal reaction of the patient, or of later complication, without mention of misadventure at the time of the procedure; I96 Gangrene, not elsewhere classified | CPT/HCPCS: 11042 ==

== ENCOUNTER → 2023-07-16 14:55 | Outpatient (BNVA) | payer MEDICARE, MEDICAID, SELFPAY | PROVIDERS: PCP Family Medicine; Visit Provider Nurse Practitioner Family | DX: I96 Gangrene, not elsewhere classified (principal); T81.31XD Disruption of external operation (surgical) wound, not elsewhere classified, subsequent encounter; Y83.8 Other surgical procedures as the cause of abnormal reaction of the patient, or of later complication, without mention of misadventure at the time of the procedure | CPT/HCPCS: 11042 ==

== ENCOUNTER → 2023-07-27 16:53 | Outpatient (BNVA) | payer MEDICARE, MEDICAID, SELFPAY | PROVIDERS: PCP Family Medicine; Visit Provider Family Medicine | DX: R30.0 Dysuria (principal) | CPT/HCPCS: 81003; 87077; 87086; 87184 ==

== ENCOUNTER → 2023-07-30 14:05 | Outpatient (BNVA) | payer MEDICARE, MEDICAID, SELFPAY | PROVIDERS: PCP Family Medicine; Visit Provider Nurse Practitioner Family | DX: I96 Gangrene, not elsewhere classified (principal); T81.31XD Disruption of external operation (surgical) wound, not elsewhere classified, subsequent encounter; Y83.8 Other surgical procedures as the cause of abnormal reaction of the patient, or of later complication, without mention of misadventure at the time of the procedure | CPT/HCPCS: 11042 ==

== ENCOUNTER → 2023-08-06 14:35 | Outpatient (BNVA) | payer MEDICARE, MEDICAID, SELFPAY | PROVIDERS: PCP Family Medicine; Visit Provider Nurse Practitioner Family | DX: I96 Gangrene, not elsewhere classified (principal); T81.31XD Disruption of external operation (surgical) wound, not elsewhere classified, subsequent encounter; Y83.8 Other surgical procedures as the cause of abnormal reaction of the patient, or of later complication, without mention of misadventure at the time of the procedure | CPT/HCPCS: 11042 ==

== ENCOUNTER → 2023-08-10 11:30 | Outpatient (BNVA) | payer MEDICARE, MEDICAID, SELFPAY | PROVIDERS: PCP Family Medicine; Referring Provider Specialist; Visit Provider Specialist | DX: R29.90 Unspecified symptoms and signs involving the nervous system (principal); G82.20 Paraplegia, unspecified; G82.50 Quadriplegia, unspecified; M86.659 Other chronic osteomyelitis, unspecified thigh | CPT/HCPCS: 99214 ==

== ENCOUNTER → 2023-08-13 09:58 | Outpatient (BNVA) | payer MEDICARE, MEDICAID, SELFPAY | PROVIDERS: PCP Family Medicine; Visit Provider Nurse Practitioner Family | DX: T81.31XD Disruption of external operation (surgical) wound, not elsewhere classified, subsequent encounter (principal); Y83.8 Other surgical procedures as the cause of abnormal reaction of the patient, or of later complication, without mention of misadventure at the time of the procedure | CPT/HCPCS: 11042 ==

== ENCOUNTER → 2023-08-20 13:02 | Outpatient (BNVA) | payer MEDICARE, MEDICAID, SELFPAY | PROVIDERS: PCP Family Medicine; Visit Provider Nurse Practitioner Family | DX: T81.31XD Disruption of external operation (surgical) wound, not elsewhere classified, subsequent encounter (principal); Y83.8 Other surgical procedures as the cause of abnormal reaction of the patient, or of later complication, without mention of misadventure at the time of the procedure | CPT/HCPCS: 11042 ==

== ENCOUNTER → 2023-08-27 13:06 | Outpatient (BNVA) | payer MEDICARE, MEDICAID, SELFPAY | PROVIDERS: PCP Family Medicine; Visit Provider Nurse Practitioner Family | DX: T81.31XD Disruption of external operation (surgical) wound, not elsewhere classified, subsequent encounter (principal); Y83.8 Other surgical procedures as the cause of abnormal reaction of the patient, or of later complication, without mention of misadventure at the time of the procedure; I96 Gangrene, not elsewhere classified | CPT/HCPCS: 97597 ==

== ENCOUNTER → 2023-09-03 13:45 | Outpatient (BNVA) | payer MEDICARE, MEDICAID, SELFPAY | PROVIDERS: PCP Family Medicine; Visit Provider Nurse Practitioner Family | DX: I96 Gangrene, not elsewhere classified (principal); T81.31XD Disruption of external operation (surgical) wound, not elsewhere classified, subsequent encounter; Y83.8 Other surgical procedures as the cause of abnormal reaction of the patient, or of later complication, without mention of misadventure at the time of the procedure | CPT/HCPCS: 11042 ==

== ENCOUNTER → 2023-09-10 14:54 | Outpatient (BNVA) | payer MEDICARE, MEDICAID, SELFPAY | PROVIDERS: PCP Family Medicine; Visit Provider Nurse Practitioner Family | DX: I96 Gangrene, not elsewhere classified (principal); T81.31XD Disruption of external operation (surgical) wound, not elsewhere classified, subsequent encounter; Y83.8 Other surgical procedures as the cause of abnormal reaction of the patient, or of later complication, without mention of misadventure at the time of the procedure | CPT/HCPCS: 11042 ==

== ENCOUNTER → 2023-09-16 17:44 | Outpatient (BNVA) | payer MEDICARE, MEDICAID, SELFPAY | PROVIDERS: PCP Family Medicine; Visit Provider Family Medicine | DX: R55 Syncope and collapse (principal); E46 Unspecified protein-calorie malnutrition; D50.9 Iron deficiency anemia, unspecified | CPT/HCPCS: 80053; 83540; 84443; 85025 ==

== ENCOUNTER → 2023-09-17 14:57 | Outpatient (BNVA) | payer MEDICARE, MEDICAID, SELFPAY | PROVIDERS: PCP Family Medicine; Visit Provider Nurse Practitioner Family | DX: I96 Gangrene, not elsewhere classified (principal); T81.31XD Disruption of external operation (surgical) wound, not elsewhere classified, subsequent encounter; Y83.8 Other surgical procedures as the cause of abnormal reaction of the patient, or of later complication, without mention of misadventure at the time of the procedure | CPT/HCPCS: 97597 ==

== ENCOUNTER → 2023-09-18 12:32 | Outpatient (BNVA) | payer MEDICARE, MEDICAID, SELFPAY | PROVIDERS: PCP Family Medicine; Visit Provider Specialist | DX: G40.309 Generalized idiopathic epilepsy and epileptic syndromes, not intractable, without status epilepticus (principal); G82.20 Paraplegia, unspecified; G47.10 Hypersomnia, unspecified; Z97.8 Presence of other specified devices | CPT/HCPCS: 99215 ==

== ENCOUNTER → 2023-09-24 14:16 | Outpatient (BNVA) | payer MEDICARE, MEDICAID, SELFPAY | PROVIDERS: PCP Family Medicine; Visit Provider Nurse Practitioner Family | DX: I96 Gangrene, not elsewhere classified (principal); T81.31XD Disruption of external operation (surgical) wound, not elsewhere classified, subsequent encounter; Y83.8 Other surgical procedures as the cause of abnormal reaction of the patient, or of later complication, without mention of misadventure at the time of the procedure | CPT/HCPCS: 97597; A6210; A6219 ==

== ENCOUNTER 2023-09-28 10:28 | Outpatient (CLI) | payer MEDICARE, MEDICAID, SELFPAY ==
--- NOTE | 2023-09-28 11:00 | USCV_ITS ---
Randall Barakat Age: 38 Gender: M : 1985 Exam Date: 09/28/2023 10:49 Ordering Phys: Tracey Hathaway MD Technologist: CT Exam Location: [facility] [place] Indication: syncope BP: 108 / 60 HR: 51 Rhythm: Sinus Technical Quality: Adequate MEASUREMENTS (Male / Female) Normal Values 2D ECHO LV Chamber Size 5.8 cm RV Chamber Size 4.8 cm LVOT Diameter 2.5 cm LV Ejection Fraction MOD 2C 62.0 % LV Ejection Fraction 2C AL 61.6 % LA Diameter 4.1 cm LA Width 4.6 cm LA Height 4.4 cm RA Width 3.5 cm RA Height 4.4 cm Aorta at Sinotubular Diameter 2.5 cm IVC Diameter 1.5 cm M-MODE Aortic Annulus Diameter 3.7 cm LA Ao Ratio MM 1.2 MV E Point Septal Separation 0.6 cm DOPPLER AV Peak Velocity 115.0 cm/s LVOT Peak Velocity 94.0 cm/s AV Area Cont Eq vti 5.1 cm squared AV Area Cont Eq pk 4.1 cm squared MV E' Velocity 14.0 cm/s TR Peak Velocity 120.7 cm/s TR Peak Gradient 5.8 mmHg TV Peak E Velocity 73.0 cm/s Right Atrial Pressure 3.0 mmHg Pulmonary Artery Systolic Pressu 8.8 mmHg PV Peak Velocity 109.0 cm/s FINDINGS Left Ventricle Normal left ventricular size, systolic function and wall thickness, with no regional wall motion abnormalities. Left ventricular ejection fraction is estimated at 62 %. Right Ventricle Normal right ventricular size and systolic function. Right Atrium Normal right atrial size. Left Atrium Normal left atrial size. Mitral Valve Structurally normal mitral valve. No mitral valve regurgitation. Aortic Valve Structurally normal trileaflet aortic valve. No aortic valve regurgitation. No aortic valve stenosis. Tricuspid Valve Structurally normal tricuspid valve. Pulmonic Valve Structurally normal pulmonic valve. Pericardium No pericardial effusion. Aorta Normal aonormal size aortic root and proximal ascending aorta. IVC Normal IVC dimension with >50% respiratory change of the inferior vena cava. CONCLUSIONS 1. Normal left ventricular function, normal LVEF 62%. 2. Normal chamber sizes. 3. No significant valvular abnormality noted. 4. Normal right heart and pulmonary pressures. Evelyn Mantilla MD (Electronically Signed) Final Date: 28 September 2023 17:27 S
== END 2023-09-28 10:29 | disposition home or self-care (01) ==
LOC: RAD 10:29
PROVIDERS: PCP Family Medicine; Visit Provider Specialist
DX: G40.309 Generalized idiopathic epilepsy and epileptic syndromes, not intractable, without status epilepticus (principal); G47.10 Hypersomnia, unspecified; G82.20 Paraplegia, unspecified; R55 Syncope and collapse
CPT/HCPCS: 93306

== ENCOUNTER → 2023-10-08 13:35 | Outpatient (BNVA) | payer MEDICARE, MEDICAID, SELFPAY | PROVIDERS: PCP Family Medicine; Visit Provider Nurse Practitioner Family | DX: I96 Gangrene, not elsewhere classified (principal); T81.31XD Disruption of external operation (surgical) wound, not elsewhere classified, subsequent encounter; Y83.8 Other surgical procedures as the cause of abnormal reaction of the patient, or of later complication, without mention of misadventure at the time of the procedure | CPT/HCPCS: 97597; A6210 ==

== ENCOUNTER → 2023-10-15 12:56 | Outpatient (BNVA) | payer MEDICARE, MEDICAID, SELFPAY | PROVIDERS: PCP Family Medicine; Visit Provider Nurse Practitioner Family | DX: I96 Gangrene, not elsewhere classified (principal); T81.31XD Disruption of external operation (surgical) wound, not elsewhere classified, subsequent encounter; Y83.8 Other surgical procedures as the cause of abnormal reaction of the patient, or of later complication, without mention of misadventure at the time of the procedure | CPT/HCPCS: 97597; A6210 ==

== ENCOUNTER → 2023-10-22 13:12 | Outpatient (BNVA) | payer MEDICARE, MEDICAID, SELFPAY | PROVIDERS: PCP Family Medicine; Visit Provider Nurse Practitioner Family | DX: I96 Gangrene, not elsewhere classified (principal); T81.31XD Disruption of external operation (surgical) wound, not elsewhere classified, subsequent encounter; Y83.8 Other surgical procedures as the cause of abnormal reaction of the patient, or of later complication, without mention of misadventure at the time of the procedure | CPT/HCPCS: 97597; A6210 ==

== ENCOUNTER → 2023-10-29 10:59 | Outpatient (BNVA) | payer MEDICARE, MEDICAID, SELFPAY | PROVIDERS: PCP Family Medicine; Visit Provider Thoracic Surgery (Cardiothoracic Vascular Surgery) | DX: I96 Gangrene, not elsewhere classified (principal); T81.31XD Disruption of external operation (surgical) wound, not elsewhere classified, subsequent encounter; Y83.8 Other surgical procedures as the cause of abnormal reaction of the patient, or of later complication, without mention of misadventure at the time of the procedure | CPT/HCPCS: 97597; A6210 ==

== ENCOUNTER → 2023-11-05 09:44 | Outpatient (BNVA) | payer MEDICARE, MEDICAID, SELFPAY | PROVIDERS: PCP Family Medicine; Visit Provider Nurse Practitioner Family | DX: I96 Gangrene, not elsewhere classified (principal); T81.31XD Disruption of external operation (surgical) wound, not elsewhere classified, subsequent encounter; Y83.8 Other surgical procedures as the cause of abnormal reaction of the patient, or of later complication, without mention of misadventure at the time of the procedure | CPT/HCPCS: 97597; A6210 ==

== ENCOUNTER → 2023-11-10 11:35 | Outpatient (BNVA) | payer MEDICARE, MEDICAID, SELFPAY | PROVIDERS: PCP Family Medicine; Visit Provider Specialist | DX: G40.309 Generalized idiopathic epilepsy and epileptic syndromes, not intractable, without status epilepticus (principal); R55 Syncope and collapse; G40.109 Localization-related (focal) (partial) symptomatic epilepsy and epileptic syndromes with simple partial seizures, not intractable, without status epilepticus | CPT/HCPCS: 95816 ==

== ENCOUNTER → 2023-11-12 13:30 | Outpatient (BNVA) | payer MEDICARE, MEDICAID, SELFPAY | PROVIDERS: PCP Family Medicine; Visit Provider Nurse Practitioner Family | DX: T81.31XD Disruption of external operation (surgical) wound, not elsewhere classified, subsequent encounter (principal); Y83.8 Other surgical procedures as the cause of abnormal reaction of the patient, or of later complication, without mention of misadventure at the time of the procedure | CPT/HCPCS: 97597; A6210; A6220 ==

== ENCOUNTER → 2023-11-13 07:41 | Outpatient (BNVA) | payer MEDICARE, MEDICAID, SELFPAY | PROVIDERS: PCP Family Medicine; Visit Provider Specialist | DX: G82.20 Paraplegia, unspecified (principal); R56.9 Unspecified convulsions | CPT/HCPCS: 62370; 99213 ==

== ENCOUNTER → 2023-11-19 13:46 | Outpatient (BNVA) | payer MEDICARE, MEDICAID, SELFPAY | PROVIDERS: PCP Family Medicine; Visit Provider Nurse Practitioner Family | DX: I96 Gangrene, not elsewhere classified (principal); T81.31XD Disruption of external operation (surgical) wound, not elsewhere classified, subsequent encounter; Y83.8 Other surgical procedures as the cause of abnormal reaction of the patient, or of later complication, without mention of misadventure at the time of the procedure | CPT/HCPCS: 97597 ==

== ENCOUNTER → 2023-11-26 12:58 | Outpatient (BNVA) | payer MEDICARE, MEDICAID, SELFPAY | PROVIDERS: PCP Family Medicine; Visit Provider Nurse Practitioner Family | DX: I96 Gangrene, not elsewhere classified (principal); T81.31XD Disruption of external operation (surgical) wound, not elsewhere classified, subsequent encounter; Y83.8 Other surgical procedures as the cause of abnormal reaction of the patient, or of later complication, without mention of misadventure at the time of the procedure | CPT/HCPCS: 97597 ==

== ENCOUNTER → 2023-12-03 13:03 | Outpatient (BNVA) | payer MEDICARE, MEDICAID, SELFPAY | PROVIDERS: PCP Family Medicine; Visit Provider Nurse Practitioner Family | DX: I96 Gangrene, not elsewhere classified (principal); T81.31XD Disruption of external operation (surgical) wound, not elsewhere classified, subsequent encounter; Y83.8 Other surgical procedures as the cause of abnormal reaction of the patient, or of later complication, without mention of misadventure at the time of the procedure | CPT/HCPCS: 97597; A6210 ==

== ENCOUNTER → 2023-12-10 10:09 | Outpatient (BNVA) | payer MEDICARE, MEDICAID, SELFPAY | PROVIDERS: PCP Family Medicine; Visit Provider Nurse Practitioner Family | DX: I96 Gangrene, not elsewhere classified (principal); T81.31XD Disruption of external operation (surgical) wound, not elsewhere classified, subsequent encounter; Y83.8 Other surgical procedures as the cause of abnormal reaction of the patient, or of later complication, without mention of misadventure at the time of the procedure | CPT/HCPCS: 97597; A6210 ==

== ENCOUNTER → 2023-12-14 15:05 | Outpatient (BNVA) | payer MEDICARE, MEDICAID, SELFPAY | PROVIDERS: PCP Family Medicine; Visit Provider Nurse Practitioner Family | DX: I96 Gangrene, not elsewhere classified (principal); T81.31XD Disruption of external operation (surgical) wound, not elsewhere classified, subsequent encounter; Y83.8 Other surgical procedures as the cause of abnormal reaction of the patient, or of later complication, without mention of misadventure at the time of the procedure | CPT/HCPCS: 97597 ==

== ENCOUNTER → 2023-12-21 13:49 | Outpatient (BNVA) | payer MEDICARE, MEDICAID, SELFPAY | PROVIDERS: PCP Family Medicine; Visit Provider Nurse Practitioner Family | DX: I96 Gangrene, not elsewhere classified (principal); T81.31XD Disruption of external operation (surgical) wound, not elsewhere classified, subsequent encounter; Y83.8 Other surgical procedures as the cause of abnormal reaction of the patient, or of later complication, without mention of misadventure at the time of the procedure | CPT/HCPCS: 97597; A6210 ==

== ENCOUNTER → 2023-12-28 13:45 | Outpatient (BNVA) | payer MEDICARE, MEDICAID, SELFPAY | PROVIDERS: PCP Family Medicine; Visit Provider Nurse Practitioner Family | DX: T81.31XD Disruption of external operation (surgical) wound, not elsewhere classified, subsequent encounter (principal); Y83.8 Other surgical procedures as the cause of abnormal reaction of the patient, or of later complication, without mention of misadventure at the time of the procedure | CPT/HCPCS: 97597; A6210 ==

== ENCOUNTER → 2024-01-04 13:50 | Outpatient (BNVA) | payer MEDICARE, MEDICAID, SELFPAY | PROVIDERS: PCP Family Medicine; Visit Provider Nurse Practitioner Family | DX: T81.31XD Disruption of external operation (surgical) wound, not elsewhere classified, subsequent encounter (principal); Y83.8 Other surgical procedures as the cause of abnormal reaction of the patient, or of later complication, without mention of misadventure at the time of the procedure | CPT/HCPCS: 97597 ==

== ENCOUNTER → 2024-01-11 14:12 | Outpatient (BNVA) | payer MEDICARE, MEDICAID, SELFPAY | PROVIDERS: PCP Family Medicine; Visit Provider Nurse Practitioner Family | DX: T81.31XD Disruption of external operation (surgical) wound, not elsewhere classified, subsequent encounter (principal); Y83.8 Other surgical procedures as the cause of abnormal reaction of the patient, or of later complication, without mention of misadventure at the time of the procedure | CPT/HCPCS: 97597 ==

== ENCOUNTER → 2024-01-18 14:09 | Outpatient (BNVA) | payer MEDICARE, MEDICAID, SELFPAY | PROVIDERS: PCP Family Medicine; Visit Provider Nurse Practitioner Family | DX: T81.31XD Disruption of external operation (surgical) wound, not elsewhere classified, subsequent encounter (principal); Y83.8 Other surgical procedures as the cause of abnormal reaction of the patient, or of later complication, without mention of misadventure at the time of the procedure | CPT/HCPCS: 97597 ==

== ENCOUNTER → 2024-01-22 14:36 | Outpatient (BNVA) | payer MEDICARE, MEDICAID, SELFPAY | PROVIDERS: PCP Family Medicine; Visit Provider Specialist | DX: G82.20 Paraplegia, unspecified (principal); G40.109 Localization-related (focal) (partial) symptomatic epilepsy and epileptic syndromes with simple partial seizures, not intractable, without status epilepticus; Z97.8 Presence of other specified devices | CPT/HCPCS: 99213 ==

== ENCOUNTER → 2024-01-25 14:14 | Outpatient (BNVA) | payer MEDICARE, MEDICAID, SELFPAY | PROVIDERS: PCP Family Medicine; Visit Provider Nurse Practitioner Family | DX: T81.31XD Disruption of external operation (surgical) wound, not elsewhere classified, subsequent encounter (principal); Y83.8 Other surgical procedures as the cause of abnormal reaction of the patient, or of later complication, without mention of misadventure at the time of the procedure | CPT/HCPCS: 97597; A6210 ==

== ENCOUNTER → 2024-01-28 15:03 | Outpatient (BNVA) | payer MEDICARE, MEDICAID, SELFPAY | PROVIDERS: PCP Family Medicine; Visit Provider Family Medicine | DX: R30.0 Dysuria (principal); M54.50 Low back pain, unspecified | CPT/HCPCS: 81000; 81003; 87086 ==

== ENCOUNTER → 2024-02-01 14:33 | Outpatient (BNVA) | payer MEDICARE, MEDICAID, SELFPAY | PROVIDERS: PCP Family Medicine; Visit Provider Nurse Practitioner Family | DX: T81.31XD Disruption of external operation (surgical) wound, not elsewhere classified, subsequent encounter (principal); Y83.8 Other surgical procedures as the cause of abnormal reaction of the patient, or of later complication, without mention of misadventure at the time of the procedure | CPT/HCPCS: 97597; A6210 ==

== ENCOUNTER → 2024-02-08 14:05 | Outpatient (BNVA) | payer MEDICARE, MEDICAID, SELFPAY | PROVIDERS: PCP Family Medicine; Visit Provider Nurse Practitioner Family | DX: T81.31XD Disruption of external operation (surgical) wound, not elsewhere classified, subsequent encounter (principal); Y83.8 Other surgical procedures as the cause of abnormal reaction of the patient, or of later complication, without mention of misadventure at the time of the procedure | CPT/HCPCS: 97597; A6210 ==

== ENCOUNTER → 2024-02-10 12:42 | Outpatient (BNVA) | payer MEDICARE, MEDICAID, SELFPAY | PROVIDERS: PCP Family Medicine; Visit Provider Specialist | DX: G82.20 Paraplegia, unspecified (principal); Z97.8 Presence of other specified devices | CPT/HCPCS: 62370; 99213 ==

== ENCOUNTER → 2024-02-15 09:15 | Outpatient (BNVA) | payer MEDICARE, MEDICAID, SELFPAY | PROVIDERS: PCP Family Medicine; Visit Provider Nurse Practitioner Family | DX: T81.31XD Disruption of external operation (surgical) wound, not elsewhere classified, subsequent encounter (principal); Y83.8 Other surgical procedures as the cause of abnormal reaction of the patient, or of later complication, without mention of misadventure at the time of the procedure | CPT/HCPCS: 97597; A6210 ==

== ENCOUNTER → 2024-02-29 14:16 | Outpatient (BNVA) | payer MEDICARE, MEDICAID, SELFPAY | PROVIDERS: PCP Family Medicine; Visit Provider Nurse Practitioner Family | DX: T81.31XD Disruption of external operation (surgical) wound, not elsewhere classified, subsequent encounter (principal); Y83.8 Other surgical procedures as the cause of abnormal reaction of the patient, or of later complication, without mention of misadventure at the time of the procedure | CPT/HCPCS: 97597; A6210 ==

== ENCOUNTER 2024-03-02 20:00 | Outpatient (CLI) | payer MEDICARE, MEDICAID, SELFPAY | END 2024-03-02 20:01 | disposition home or self-care (01) | LOC: SLEEP 03-03 06:20 | PROVIDERS: PCP Family Medicine; Visit Provider Specialist | DX: G47.10 Hypersomnia, unspecified (principal); G47.33 Obstructive sleep apnea (adult) (pediatric) | CPT/HCPCS: 95810 ==

== ENCOUNTER → 2024-03-07 14:12 | Outpatient (BNVA) | payer MEDICARE, MEDICAID, SELFPAY | PROVIDERS: PCP Family Medicine; Visit Provider Nurse Practitioner Family | DX: T81.31XD Disruption of external operation (surgical) wound, not elsewhere classified, subsequent encounter (principal); Y83.8 Other surgical procedures as the cause of abnormal reaction of the patient, or of later complication, without mention of misadventure at the time of the procedure | CPT/HCPCS: 97597; A6210 ==

== ENCOUNTER → 2024-03-16 13:51 | Outpatient (BNVA) | payer MEDICARE, MEDICAID, SELFPAY | PROVIDERS: PCP Family Medicine; Visit Provider Nurse Practitioner Family | DX: R30.0 Dysuria (principal) | CPT/HCPCS: 81003; 87077; 87086; 87184 ==

== ENCOUNTER 2024-03-17 20:00 | Outpatient (CLI) | payer MEDICARE, MEDICAID, SELFPAY | END 2024-03-17 20:01 | disposition home or self-care (01) | LOC: SLEEP 03-18 05:54 | PROVIDERS: PCP Family Medicine; Visit Provider Specialist | DX: G47.33 Obstructive sleep apnea (adult) (pediatric) (principal); I96 Gangrene, not elsewhere classified; T81.31XD Disruption of external operation (surgical) wound, not elsewhere classified, subsequent encounter; Y83.8 Other surgical procedures as the cause of abnormal reaction of the patient, or of later complication, without mention of misadventure at the time of the procedure | CPT/HCPCS: 95811; 97597; A6210 ==

== ENCOUNTER → 2024-03-21 14:11 | Outpatient (BNVA) | payer MEDICARE, MEDICAID, SELFPAY | PROVIDERS: PCP Family Medicine; Visit Provider Nurse Practitioner Family | DX: T81.31XD Disruption of external operation (surgical) wound, not elsewhere classified, subsequent encounter (principal); Y83.8 Other surgical procedures as the cause of abnormal reaction of the patient, or of later complication, without mention of misadventure at the time of the procedure | CPT/HCPCS: 97597; A6210 ==

== ENCOUNTER → 2024-03-28 13:59 | Outpatient (BNVA) | payer MEDICARE, MEDICAID, SELFPAY | PROVIDERS: PCP Family Medicine; Visit Provider Nurse Practitioner Family | DX: T81.31XD Disruption of external operation (surgical) wound, not elsewhere classified, subsequent encounter (principal); Y83.8 Other surgical procedures as the cause of abnormal reaction of the patient, or of later complication, without mention of misadventure at the time of the procedure | CPT/HCPCS: 97597 ==

== ENCOUNTER → 2024-04-11 13:21 | Outpatient (BNVA) | payer MEDICARE, MEDICAID, SELFPAY | PROVIDERS: PCP Family Medicine; Visit Provider Nurse Practitioner Family | DX: T81.31XD Disruption of external operation (surgical) wound, not elsewhere classified, subsequent encounter (principal); Y83.8 Other surgical procedures as the cause of abnormal reaction of the patient, or of later complication, without mention of misadventure at the time of the procedure | CPT/HCPCS: 97597; A6210; A6220 ==

== ENCOUNTER → 2024-04-18 14:18 | Outpatient (BNVA) | payer MEDICARE, MEDICAID, SELFPAY | PROVIDERS: PCP Family Medicine; Visit Provider Nurse Practitioner Family | DX: T81.31XD Disruption of external operation (surgical) wound, not elsewhere classified, subsequent encounter (principal); Y83.8 Other surgical procedures as the cause of abnormal reaction of the patient, or of later complication, without mention of misadventure at the time of the procedure | CPT/HCPCS: 97597; A6210 ==

== ENCOUNTER → 2024-05-02 15:39 | Outpatient (BNVA) | payer MEDICARE, MEDICAID, SELFPAY | PROVIDERS: PCP Family Medicine; Visit Provider Nurse Practitioner Family | DX: T81.31XD Disruption of external operation (surgical) wound, not elsewhere classified, subsequent encounter (principal); Y83.8 Other surgical procedures as the cause of abnormal reaction of the patient, or of later complication, without mention of misadventure at the time of the procedure | CPT/HCPCS: 15275; A6206 ==

== ENCOUNTER → 2024-05-06 08:00 | Outpatient (BNVA) | payer MEDICARE, MEDICAID, SELFPAY | PROVIDERS: PCP Family Medicine; Visit Provider Specialist | DX: G40.309 Generalized idiopathic epilepsy and epileptic syndromes, not intractable, without status epilepticus (principal); R55 Syncope and collapse; G40.109 Localization-related (focal) (partial) symptomatic epilepsy and epileptic syndromes with simple partial seizures, not intractable, without status epilepticus | CPT/HCPCS: 95819 ==

== ENCOUNTER → 2024-05-09 14:16 | Outpatient (BNVA) | payer MEDICARE, MEDICAID, SELFPAY | PROVIDERS: PCP Family Medicine; Visit Provider Thoracic Surgery (Cardiothoracic Vascular Surgery) | DX: T81.31XD Disruption of external operation (surgical) wound, not elsewhere classified, subsequent encounter (principal); Y83.8 Other surgical procedures as the cause of abnormal reaction of the patient, or of later complication, without mention of misadventure at the time of the procedure | CPT/HCPCS: 15271; A6206; A6250 ==

== ENCOUNTER → 2024-05-16 14:59 | Outpatient (BNVA) | payer MEDICARE, MEDICAID, SELFPAY | PROVIDERS: PCP Family Medicine; Visit Provider Nurse Practitioner Family | DX: T81.31XD Disruption of external operation (surgical) wound, not elsewhere classified, subsequent encounter (principal); Y83.8 Other surgical procedures as the cause of abnormal reaction of the patient, or of later complication, without mention of misadventure at the time of the procedure | CPT/HCPCS: 15275; Q4187 ==

== ENCOUNTER → 2024-05-19 08:22 | Outpatient (BNVA) | payer MEDICARE, MEDICAID, SELFPAY | PROVIDERS: PCP Family Medicine; Visit Provider Specialist | DX: Z97.8 Presence of other specified devices (principal); G40.309 Generalized idiopathic epilepsy and epileptic syndromes, not intractable, without status epilepticus; G82.20 Paraplegia, unspecified; N31.9 Neuromuscular dysfunction of bladder, unspecified | CPT/HCPCS: 62370; 99213; 99214 ==

== ENCOUNTER → 2024-05-30 14:08 | Outpatient (BNVA) | payer MEDICARE, MEDICAID, SELFPAY | PROVIDERS: PCP Family Medicine; Visit Provider Thoracic Surgery (Cardiothoracic Vascular Surgery) | DX: T81.31XD Disruption of external operation (surgical) wound, not elsewhere classified, subsequent encounter (principal); Y83.8 Other surgical procedures as the cause of abnormal reaction of the patient, or of later complication, without mention of misadventure at the time of the procedure | CPT/HCPCS: 15271; Q4187 ==

== ENCOUNTER → 2024-06-06 14:21 | Outpatient (BNVA) | payer MEDICARE, MEDICAID, SELFPAY | PROVIDERS: PCP Family Medicine; Visit Provider Thoracic Surgery (Cardiothoracic Vascular Surgery) | DX: T81.31XD Disruption of external operation (surgical) wound, not elsewhere classified, subsequent encounter (principal); Y83.8 Other surgical procedures as the cause of abnormal reaction of the patient, or of later complication, without mention of misadventure at the time of the procedure | CPT/HCPCS: 15271; A6220 ==

== ENCOUNTER → 2024-06-07 14:40 | Outpatient (BNVA) | payer MEDICARE, MEDICAID, SELFPAY | PROVIDERS: PCP Family Medicine; Visit Provider Specialist | DX: G40.309 Generalized idiopathic epilepsy and epileptic syndromes, not intractable, without status epilepticus (principal); G82.20 Paraplegia, unspecified; Z97.8 Presence of other specified devices; N31.9 Neuromuscular dysfunction of bladder, unspecified | CPT/HCPCS: 95991; 99214; 99215 ==

== ENCOUNTER → 2024-06-08 11:49 | Outpatient (BNVA) | payer MEDICARE, MEDICAID, SELFPAY | PROVIDERS: PCP Family Medicine; Visit Provider Family Medicine | DX: R79.89 Other specified abnormal findings of blood chemistry (principal); R73.9 Hyperglycemia, unspecified | CPT/HCPCS: 80053; 83036 ==

== ENCOUNTER → 2024-06-13 14:13 | Outpatient (BNVA) | payer MEDICARE, MEDICAID, SELFPAY | PROVIDERS: PCP Family Medicine; Visit Provider Thoracic Surgery (Cardiothoracic Vascular Surgery) | DX: T81.31XD Disruption of external operation (surgical) wound, not elsewhere classified, subsequent encounter (principal); Y83.8 Other surgical procedures as the cause of abnormal reaction of the patient, or of later complication, without mention of misadventure at the time of the procedure | CPT/HCPCS: 15271; 87070; 87075; 87205 ==

== ENCOUNTER → 2024-06-20 13:11 | Outpatient (BNVA) | payer MEDICARE, MEDICAID, SELFPAY | PROVIDERS: PCP Family Medicine; Visit Provider Thoracic Surgery (Cardiothoracic Vascular Surgery) | DX: T81.31XD Disruption of external operation (surgical) wound, not elsewhere classified, subsequent encounter (principal); Y83.8 Other surgical procedures as the cause of abnormal reaction of the patient, or of later complication, without mention of misadventure at the time of the procedure | CPT/HCPCS: 15271; A6021; A6207; A6250 ==

== ENCOUNTER → 2024-06-27 13:20 | Outpatient (BNVA) | payer MEDICARE, MEDICAID, SELFPAY | PROVIDERS: PCP Family Medicine; Visit Provider Thoracic Surgery (Cardiothoracic Vascular Surgery) | DX: I96 Gangrene, not elsewhere classified (principal); T81.31XD Disruption of external operation (surgical) wound, not elsewhere classified, subsequent encounter; Y83.8 Other surgical procedures as the cause of abnormal reaction of the patient, or of later complication, without mention of misadventure at the time of the procedure | CPT/HCPCS: 15271; A6206 ==

== ENCOUNTER → 2024-06-29 10:34 | Outpatient (BNVA) | payer MEDICARE, MEDICAID, SELFPAY | PROVIDERS: PCP Family Medicine; Visit Provider Nurse Practitioner Family | DX: R30.0 Dysuria (principal) | CPT/HCPCS: 81015 ==

== ENCOUNTER → 2024-07-04 13:00 | Outpatient (BNVA) | payer MEDICARE, MEDICAID, SELFPAY | PROVIDERS: PCP Family Medicine; Visit Provider Thoracic Surgery (Cardiothoracic Vascular Surgery) | DX: I96 Gangrene, not elsewhere classified (principal); T81.31XD Disruption of external operation (surgical) wound, not elsewhere classified, subsequent encounter; Y83.8 Other surgical procedures as the cause of abnormal reaction of the patient, or of later complication, without mention of misadventure at the time of the procedure | CPT/HCPCS: 15271; A6207; A6250; Q4187 ==

== ENCOUNTER → 2024-07-20 14:53 | Outpatient (BNVA) | payer MEDICARE, MEDICAID, SELFPAY | PROVIDERS: PCP Family Medicine; Visit Provider Internal Medicine Cardiovascular Disease | DX: R55 Syncope and collapse (principal); R73.9 Hyperglycemia, unspecified; R07.9 Chest pain, unspecified; G82.50 Quadriplegia, unspecified | CPT/HCPCS: 99204 ==

== ENCOUNTER → 2024-07-21 13:11 | Outpatient (BNVA) | payer MEDICARE, MEDICAID, SELFPAY | PROVIDERS: PCP Family Medicine; Visit Provider Thoracic Surgery (Cardiothoracic Vascular Surgery) | DX: T81.31XD Disruption of external operation (surgical) wound, not elsewhere classified, subsequent encounter (principal); Y83.8 Other surgical procedures as the cause of abnormal reaction of the patient, or of later complication, without mention of misadventure at the time of the procedure | CPT/HCPCS: 15271; Q4187 ==

== ENCOUNTER → 2024-07-25 14:45 | Outpatient (BNVA) | payer MEDICARE, MEDICAID, SELFPAY | PROVIDERS: PCP Family Medicine; Visit Provider Thoracic Surgery (Cardiothoracic Vascular Surgery) | DX: T81.31XD Disruption of external operation (surgical) wound, not elsewhere classified, subsequent encounter (principal); Y83.8 Other surgical procedures as the cause of abnormal reaction of the patient, or of later complication, without mention of misadventure at the time of the procedure | CPT/HCPCS: 97597; A6210; A6220 ==

== ENCOUNTER → 2024-08-08 13:45 | Outpatient (BNVA) | payer MEDICARE, MEDICAID, SELFPAY | PROVIDERS: PCP Family Medicine; Visit Provider Thoracic Surgery (Cardiothoracic Vascular Surgery) | DX: T81.31XD Disruption of external operation (surgical) wound, not elsewhere classified, subsequent encounter (principal); Y83.8 Other surgical procedures as the cause of abnormal reaction of the patient, or of later complication, without mention of misadventure at the time of the procedure | CPT/HCPCS: 97597; A6210 ==

== ENCOUNTER 2024-08-10 07:15 | Outpatient (CLI) | payer MEDICARE, MEDICAID, SELFPAY ==
[2024-08-10 07:49] VITALS: BP 125/79; PULSE 50; RESP 18; TEMP 36.7; O2SAT 97; BMI 21.7
[2024-08-10] MEDS: cephALEXin 500 mg Capsule 2000 MG PO (07:49)
[2024-08-10 07:56] LABS: Basophils % 0.2 %; Eosinophils # 0.1 10^3/uL (0.0-0.8); Eosinophils % 1.6 %; Hematocrit 43.5 % (37-53); Lymphocytes # 0.7 10^3/uL (0.8-4.8); Lymphocytes % 7.9 %; Mean Corpuscular HGB Conc 30.6 g/dL (30-55); Mean Corpuscular Hemoglobin 28.1 pg (27-33); Mean Corpuscular Volume 91.8 fl (82-101); Mean Platelet Volume 11.6 fL (7.4-10.4); Monocytes # 0.6 10^3/uL (0.2-0.9); Monocytes % 7.6 %; Neutrophils # 6.84 10^3/uL (1.8-7.7); Neutrophils % 82.3 %; Nucleated Red Blood Cells % 0 %; Platelet Count 144 10^3/cmm (157-399); Red Blood Count 4.74 10^6/uL (3.85-5.65); Red Cell Distribution Width 13.5 % (12.1-15.1); White Blood Count 8.31 10^3/uL (3.29-11.43)
--- NOTE | 2024-08-10 08:07 | W.PM.OPSUD ---
Surgery/Procedure H&P Update DATE OF PROCEDURE: August 10, 2024 DATE H&P PERFORMED: 07/20/24 H&P UPDATE INFORMATION: I have reviewed H&P completed within last 30 days, I have examined patient prior to procedure and No changes to prior documentation PREOP DIAGNOSIS: Recurrent episodes of near syncope PRIMARY INDICATION FOR PROCEDURE: As mentioned above PLANNED PROCEDURE: Operation Date: 08/10/24 08:30 Proposed Procedures p Loop Recorder Insertion(Not Applicable) - Castillo Guevara MD
--- NOTE | 2024-08-10 09:08 | P.OP_ITS ---
Operative Report Date of procedure: August 10, 2024 Surgeon: Castillo Guevara MD Procedure: LOCATION: Cardiac Catheterization Laboratory REFERRING PROVIDER: Dr. Belle PREOPERATIVE DIAGNOSIS: Recurrent near syncopal episodes. POSTOPERATIVE DIAGNOSIS: Same. ESTIMATED BLOOD LOSS: None COMPLICATIONS: None. Date of Procedure: BRIEF HISTORY: Patient presented with recurrent episodes of near syncope. He had an event monitor which didn't reveal any significant arrhythmias to explain the symptoms. For further evaluation, an implantable awake overnight monitor was recommended PROCEDURE: The procedure was explained to the patient in detail with the risks and benefits. The risk of bleeding, hematoma, vascular injury, infection and other concomitant complications were explained in detail. The patient understood this well and consented to proceed. The patient was brought to the cardiopulmonary recovery unit. . The left side of the chest was cleaned and draped in a sterile fashion. 1% Xylocaine was used as local anesthetic agent. An incision was made in the left fourth intercostal space. Making use of the application device, the implantable awake overnight monitor was inserted, subcutaneously. 5 minutes of manual pressure was applied, at the puncture site. The patient tolerated the procedure very well and there were no complications. No bleeding or hematoma. Steri-Strips were applied over the insertion site followed by a sterile dressing. Patient was sent back to the medical floor in stable condition IMPLANTED DEVICE Reveal LINQII Model number: [id number] Serial number: [id number] Make: [employer]ic Parameters: Standard settings were applied( (tachycardia rate of 150 beats per minute , bradycardia rate of 40 beats per minute and a pause of 3 seconds ; symptom recording -4 episodes of 7.5 minutes. Atrial fibrillation detection was turned on- recording threshold of ->6 minutes. Sensitivity was kept at 0.035 mV) The R wave sensing was0.32 mV
[2024-08-10 09:47] VITALS: BP 107/55; PULSE 48; RESP 18; O2SAT 97
== END 2024-08-10 09:48 | disposition home or self-care (01) ==
PROVIDERS: PCP Family Medicine; Visit Provider Internal Medicine Cardiovascular Disease
PROC: (CPT 33285; principal; 2024-08-10 08:30)
DX: R55 Syncope and collapse (principal); G82.50 Quadriplegia, unspecified; Z99.3 Dependence on wheelchair; Z87.891 Personal history of nicotine dependence; R73.9 Hyperglycemia, unspecified
CPT/HCPCS: 33285; 36415; 85025; C1764; C1769

== ENCOUNTER → 2024-08-17 13:00 | Outpatient (BNVA) | payer MEDICARE, MEDICAID, SELFPAY | PROVIDERS: PCP Family Medicine; Visit Provider Nurse Practitioner Family | DX: R00.1 Bradycardia, unspecified (principal); Z95.818 Presence of other cardiac implants and grafts | CPT/HCPCS: 99213 ==

== ENCOUNTER → 2024-08-22 13:00 | Outpatient (BNVA) | payer MEDICARE, MEDICAID, SELFPAY | PROVIDERS: PCP Family Medicine; Visit Provider Thoracic Surgery (Cardiothoracic Vascular Surgery) | DX: T81.31XD Disruption of external operation (surgical) wound, not elsewhere classified, subsequent encounter (principal); Y83.8 Other surgical procedures as the cause of abnormal reaction of the patient, or of later complication, without mention of misadventure at the time of the procedure | CPT/HCPCS: 97597; A6220 ==

== ENCOUNTER 2024-08-24 09:25 | Outpatient (CLI) | payer MEDICARE, MEDICAID, SELFPAY ==
[2024-08-24 09:45] VITALS: BMI 23.0
--- NOTE | 2024-08-24 10:47 | ECG_ITS ---
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 Interpretive Statements PROCEDURE: At the baseline, the EKG revealed sinus bradycardia with a rate of [address] Ts.. The baseline heart was 49 bpm with a blood pressue of 109/65 mm of Hg Lexiscan was infused over a period of 20 seconds. A total of 0.4 milligrams of Lexiscan was infused. The stress phase was continued for a total of 5 minutes. Heart rate at the end of the stress phase was 91 bpm with a blood pressure 92/59 mm of Hg. The EKG at the peak infusion revealed no significant changes. Sestamibi was injected 20 seconds after the Lexiscan infusion. Heart rate at the end of the recovery phase was 46 bpm with a blood pressure of 135/81 mm of Hg. CONCLUSION: 1. No significant EKG changes with the LexiScan infusion 2. No LexiScan induced chest pain or cardiac arrhythmia 3. Normal blood pressure and heart rate response 4. Sestamibi/sestamibi perfusion scan pending; see separate report. Lung unchanged pre/post procedure; Intraprocedure shortess of breath; Symptoms resoled by discharge Electronically Signed On 08-28-2024 19:31:25 CDT by Castillo Guevara M.D. [id number]
--- NOTE | 2024-08-24 10:48 | NMCV_ITS ---
NM helen perf SPECT r/s* [id number] Randall Barakat Age: 39 Gender: M : 1985 Exam Date: 08/24/2024 10:48 Ordering Phys: Castillo Guevara MD ([email or web address]) Technologist: MERRILL Alanis Exam Location: [facility] Indications: cp STRESS TEST [facility] IMAGE PROTOCOL Rest/Stress 1 Lexiscan Day Radiopharmaceutical Dose (mCi) Administration Site Administered by Rest: Tc-99m 10.4 IV MERRILL Cobian Sestamibi Stress:Tc-99m 32.7 IV MERRILL Alanis Sestamijewell Rest: 24-Aug-2024 60 Discovery 630 Stress: 24-Aug-2024 30 Discovery 630 0.4mg Lexiscan. Images obtained in supine and prone position. SPECT RESULTS Technical Quality: Good Raw Data Analysis: Normal Image Corrections: No attenuation or motion correction applied Summed Stress Score: 0 Summed Rest Score: 0 Summed Difference Score: 0 PERFUSION FINDINGS Uniform myocardial tracer uptake with no significant perfusion abnormalities FUNCTIONAL RESULTS (calculated via Gated SPECT) Stress Image LV EF (%): 77 Stress EDV (mL):124 TID: 0.7 Stress ESV (mL):29 FUNCTIONAL FINDINGS: Segmental wall motion analysis revealing no gross wall motion abnormalities IMPRESSIONS 1. Myocardial perfusion imaging revealing uniform myocardial tracer uptake with no significant Perfusion abnormalities. 2. Normal LV ejection fraction of 77% 3. LV wall motion analysis revealing no gross wall motion abnormalities. 4. Normal LV volume Low probability for coronary ischemia, based on the above findings Dr Castillo Guevara MD FACC (Electronically Signed) Final Date: 25 August 2024 16:26 S
[2024-08-24] MEDS: regadenoson 0.4 Mg/5 ml Syringe IVP (12:16)
[2024-08-24 12:17] VITALS: BP 135/81; PULSE 50
== END 2024-08-24 09:26 | disposition home or self-care (01) ==
PROVIDERS: PCP Family Medicine; Visit Provider Internal Medicine Cardiovascular Disease
DX: Z98.61 Coronary angioplasty status (principal)
CPT/HCPCS: 36415; 78452; 93017; 96374; A9500; J2785

== ENCOUNTER → 2024-08-31 13:36 | Outpatient (BNVA) | payer MEDICARE, MEDICAID, SELFPAY | PROVIDERS: PCP Family Medicine; Visit Provider Specialist | DX: Z97.8 Presence of other specified devices (principal); G40.309 Generalized idiopathic epilepsy and epileptic syndromes, not intractable, without status epilepticus; G82.20 Paraplegia, unspecified; N31.9 Neuromuscular dysfunction of bladder, unspecified; R00.1 Bradycardia, unspecified | CPT/HCPCS: 62370; 99213 ==

== ENCOUNTER → 2024-09-07 13:09 | Outpatient (BNVA) | payer MEDICARE, MEDICAID, SELFPAY | PROVIDERS: PCP Family Medicine; Visit Provider Internal Medicine Cardiovascular Disease | DX: Z45.09 Encounter for adjustment and management of other cardiac device (principal) | CPT/HCPCS: 93298 ==

== ENCOUNTER → 2024-10-19 10:13 | Outpatient (BNVA) | payer MEDICARE, MEDICAID, SELFPAY | PROVIDERS: PCP Family Medicine; Visit Provider Internal Medicine Cardiovascular Disease | DX: Z45.09 Encounter for adjustment and management of other cardiac device (principal) | CPT/HCPCS: 93298 ==

== ENCOUNTER → 2024-11-10 10:30 | Outpatient (BNVA) | payer MEDICARE, MEDICAID, SELFPAY | PROVIDERS: PCP Family Medicine; Visit Provider Nurse Practitioner Family | DX: R55 Syncope and collapse (principal); I49.3 Ventricular premature depolarization; R00.1 Bradycardia, unspecified | CPT/HCPCS: 99214 ==

== ENCOUNTER → 2024-11-15 11:15 | Outpatient (BNVA) | payer MEDICARE, MEDICAID, SELFPAY | PROVIDERS: PCP Family Medicine; Visit Provider Internal Medicine Cardiovascular Disease | DX: R07.9 Chest pain, unspecified (principal); Z95.818 Presence of other cardiac implants and grafts; R55 Syncope and collapse; R73.9 Hyperglycemia, unspecified; G82.50 Quadriplegia, unspecified; Z86.718 Personal history of other venous thrombosis and embolism | CPT/HCPCS: 99214 ==

== ENCOUNTER 2024-11-19 11:21 | Emergency (ER) | payer MEDICARE, MEDICAID, SELFPAY ==
[2024-11-19 11:22] VITALS: BP 103/72; PULSE 62; RESP 17; TEMP 36.7; O2SAT 100; BMI 22.3
--- NOTE | 2024-11-19 11:23 | USR_ITS ---
PROCEDURE INFORMATION: Exam: US Scrotum and Artery or Vein of the Abdominal and/or Reproductive Organs, Limited Scrotum Exam date and time: 11/19/2024 12:18 PM Age: 39 years old Clinical indication: Scrotum pain; Additional info: L testicle pain TECHNIQUE: Imaging protocol: Real-time ultrasound of the scrotum. Real-time duplex ultrasound scan of the arterial or venous flow with hollingsworth scale, color Doppler flow and spectral waveform analysis with image documentation. Limited Duplex exam focused of the scrotum. Duplex exam was performed to evaluate for torsion and other vascular conditions. COMPARISON: US renal BI* [id number] 06/10/2022 2:40 PM FINDINGS: Right testicle: Right testicle measures 3.8 x 2.3 x 3.2 cm. No mass. Normal arterial and venous waveforms on Doppler. No torsion. Left testicle: The left testicle measures 3.3 x 2.5 x 2.6 cm. No mass. Normal arterial and venous waveforms on Doppler. No torsion. Epididymides: Epididymal structures are not clearly identified. Scrotum/soft tissues: There are bilateral hydroceles considerably larger on the left. There is a prominent indeterminate heterogeneous complex masslike focus abutting the left testicle on the left. It has irregular margins and some septations extending into the hydrocele. The right testicle appears to be surrounded by heterogeneous indeterminate soft tissue foci with some internal complex cystic areas.. US/US scrotum [id number] IMPRESSION: 1. Abnormal scrotal ultrasound demonstrating bilateral hydroceles considerably larger on the left. Indeterminate heterogeneous soft tissue structures are seen adjacent to each testicle. 2. Normal testicles.
[2024-11-19 11:43] LABS: Basophils % 0.3 %; Eosinophils # 0.2 10^3/uL (0.0-0.8); Eosinophils % 2.8 %; Hematocrit 44.5 % (37-53); Lymphocytes # 0.8 10^3/uL (0.8-4.8); Lymphocytes % 11.3 %; Mean Corpuscular HGB Conc 31.7 g/dL (30-55); Mean Corpuscular Hemoglobin 27.8 pg (27-33); Mean Corpuscular Volume 87.6 fl (82-101); Mean Platelet Volume 10.2 fL (7.4-10.4); Monocytes # 0.5 10^3/uL (0.2-0.9); Monocytes % 6.9 %; Neutrophils # 5.82 10^3/uL (1.8-7.7); Neutrophils % 78.4 %; Nucleated Red Blood Cells % 0 %; Platelet Count 266 10^3/cmm (157-399); Red Blood Count 5.08 10^6/uL (3.85-5.65); Red Cell Distribution Width 13.4 % (12.1-15.1); White Blood Count 7.42 10^3/uL (3.29-11.43)
[2024-11-19 11:59] LABS: Alanine Aminotransferase 11 U/L (0-41); Albumin Level 3.8 g/dL (3.5-5.2); Alkaline Phosphatase 75 U/L (40-130); Aspartate Amino Transferase 11 U/L (0-40); Blood Urea Nitrogen 14 mg/dL (6-20); Calcium 9.5 mg/dL (8.5-10.5); Carbon Dioxide 22 mmol/L (22-29); Chloride 104 mmol/L (98-107); Creatinine Clr Calc Pharmacy 347.0005; Globulin 3.5 g/dL (1.3-4.6); Glomerular Filtration Rate 333.8 mL/min (90-130); Glucose 88 mg/dL (65-115); Osmolality Calculated 290 mOsm/kg (285-295); Sodium 140 mmol/L (136-145); Total Bilirubin 0.3 mg/dL (0.15-1.2); Total Protein 7.3 g/dL (6.6-8.7)
[2024-11-19 12:28] LABS: Bilirubin Urine Negative (Negative); Blood Urine Negative (Negative); Glucose Urine UA Negative (Normal); Ketones Urine Negative (Negative); Leukocyte Esterase Urine 2+ (Negative); Nitrate Urine Negative (Negative); Protein Urine Negative (Negative); Specific Gravity, Urine 1.017 (1.005-1.030); Urine Appearance Clear (CLEAR); Urine Color Yellow (Yellow); Urobilinogen Urine 0.2 mg/dL (Negative); pH Urine 6.5 (5-7)
[2024-11-19] MEDS: morphine 4 mg/mL SDV 1 mL IVP (12:31)
[2024-11-19] MEDS: ketorolac 30 mg/mL INJ IVP (12:31)
[2024-11-19] MEDS: ondansetron 2 mg/ML SDV 2 mL 4 MG IVP (12:31)
[2024-11-19 12:32] VITALS: BP 97/63; PULSE 56; O2SAT 98
[2024-11-19 12:33] LABS: Add Urine Microscopic? YES; Bacteria Urine None Seen /hpf; Hyaline Casts Urine 2.05 /lpf; RBC Urine 0-2 /hpf (0-2); Squamous Epithelial Cell Urine 0-5 /hpf (0-5); WBC Urine 21-50 /hpf (0-5)
[2024-11-19 12:38] LABS: Add Urine Culture? Yes
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
[2024-11-19 13:42] VITALS: BP 110/71; PULSE 55; O2SAT 98
[2024-11-19] MEDS: cefTRIAXone 1,000 mg SDV 1000 MG IVP (13:42)
[2024-11-19 14:02] VITALS: RESP 18; O2SAT 97
[2024-11-19] MEDS: morphine 4 mg/mL SDV 1 mL 2 MG IVP (14:02)
[2024-11-19 14:30] VITALS: BP 117/82; PULSE 56; O2SAT 98
== END 2024-11-19 14:31 | disposition home or self-care (01) ==
PROVIDERS: Emergency Provider Family Medicine; PCP Family Medicine
DX: N45.1 Epididymitis (principal); N43.3 Hydrocele, unspecified
CPT/HCPCS: 76870; 80053; 81001; 85025; 87077; 87086; 87186; 96374; 96375; 96376; 99285; J0696; J1885; J2270; J2405

== ENCOUNTER → 2024-11-23 09:18 | Outpatient (BNVA) | payer MEDICARE, MEDICAID, SELFPAY | PROVIDERS: PCP Family Medicine; Visit Provider Internal Medicine Cardiovascular Disease | DX: Z45.09 Encounter for adjustment and management of other cardiac device (principal) | CPT/HCPCS: 93298 ==

== ENCOUNTER → 2024-12-13 10:25 | Outpatient (BNVA) | payer MEDICARE, MEDICAID, SELFPAY | PROVIDERS: PCP Nurse Practitioner Family; Visit Provider Specialist | DX: G40.309 Generalized idiopathic epilepsy and epileptic syndromes, not intractable, without status epilepticus (principal); G82.20 Paraplegia, unspecified; N31.9 Neuromuscular dysfunction of bladder, unspecified; Z97.8 Presence of other specified devices | CPT/HCPCS: 62370; 99213 ==

== ENCOUNTER → 2024-12-29 09:35 | Outpatient (BNVA) | payer MEDICARE, MEDICAID, SELFPAY | PROVIDERS: PCP Nurse Practitioner Family; Visit Provider Internal Medicine | DX: Z45.09 Encounter for adjustment and management of other cardiac device (principal) | CPT/HCPCS: 93298 ==

== ENCOUNTER → 2025-02-01 09:54 | Outpatient (BNVA) | payer MEDICARE, MEDICAID, SELFPAY | PROVIDERS: PCP Nurse Practitioner Family; Visit Provider Internal Medicine Cardiovascular Disease | DX: Z45.09 Encounter for adjustment and management of other cardiac device (principal) | CPT/HCPCS: 93298 ==

== ENCOUNTER → 2025-03-16 13:16 | Outpatient (BNVA) | payer MEDICARE, MEDICAID, SELFPAY | PROVIDERS: PCP Nurse Practitioner Family; Visit Provider Specialist | DX: G40.309 Generalized idiopathic epilepsy and epileptic syndromes, not intractable, without status epilepticus (principal); Z97.8 Presence of other specified devices; N30.01 Acute cystitis with hematuria; G82.20 Paraplegia, unspecified; N31.9 Neuromuscular dysfunction of bladder, unspecified | CPT/HCPCS: 81001; 87086; 99213 ==

== ENCOUNTER → 2025-06-13 09:18 | Outpatient (BNVA) | payer MEDICARE, MEDICAID, SELFPAY | PROVIDERS: PCP Nurse Practitioner Family; Visit Provider Internal Medicine Cardiovascular Disease | DX: R00.1 Bradycardia, unspecified (principal); R55 Syncope and collapse; R73.9 Hyperglycemia, unspecified; G82.50 Quadriplegia, unspecified; Z95.818 Presence of other cardiac implants and grafts; Z86.718 Personal history of other venous thrombosis and embolism; Z87.891 Personal history of nicotine dependence | CPT/HCPCS: 99214 ==

== ENCOUNTER → 2025-06-26 13:31 | Outpatient (BNVA) | payer MEDICARE, MEDICAID, SELFPAY | PROVIDERS: PCP Nurse Practitioner Family; Visit Provider Specialist | DX: Z97.8 Presence of other specified devices (principal); N30.01 Acute cystitis with hematuria | CPT/HCPCS: 62370; 99214 ==

== ENCOUNTER → 2025-08-07 10:50 | Outpatient (BNVA) | payer MEDICARE, MEDICAID, SELFPAY | PROVIDERS: PCP Nurse Practitioner Family; Visit Provider Nurse Practitioner Family | DX: D50.9 Iron deficiency anemia, unspecified (principal); R60.9 Edema, unspecified; E46 Unspecified protein-calorie malnutrition; R79.89 Other specified abnormal findings of blood chemistry; E55.9 Vitamin D deficiency, unspecified; R10.9 Unspecified abdominal pain | CPT/HCPCS: 80053; 80061; 81003; 82306; 82607; 82746; 83036; 83735; 84443; 85025; 87086 ==

== ENCOUNTER → 2025-09-27 13:33 | Outpatient (BNVA) | payer MEDICARE, MEDICAID, SELFPAY | PROVIDERS: PCP Nurse Practitioner Family; Visit Provider Specialist | DX: G40.309 Generalized idiopathic epilepsy and epileptic syndromes, not intractable, without status epilepticus (principal); Z97.8 Presence of other specified devices; G82.20 Paraplegia, unspecified; K59.2 Neurogenic bowel, not elsewhere classified; K59.09 Other constipation; R03.0 Elevated blood-pressure reading, without diagnosis of hypertension | CPT/HCPCS: 62370; 99213 ==

== ENCOUNTER → 2025-09-29 10:50 | Outpatient (BNVA) | payer MEDICARE, MEDICAID, SELFPAY | PROVIDERS: PCP Nurse Practitioner Family; Visit Provider Internal Medicine Cardiovascular Disease | DX: Z45.09 Encounter for adjustment and management of other cardiac device (principal) | CPT/HCPCS: 93291; 99398 ==

== ENCOUNTER → 2025-11-03 14:27 | Outpatient (BNVA) | payer MEDICARE, MEDICAID, SELFPAY | PROVIDERS: PCP Nurse Practitioner Family; Visit Provider Family Medicine Adult Medicine | DX: R39.89 Other symptoms and signs involving the genitourinary system (principal) | CPT/HCPCS: 81000 ==